=== PATIENT | male | born 1950 | race Caucasian/White ===

== ENCOUNTER 2017-12-21 11:53 | Observation (INO) | payer MEDICARE, SELFPAY ==
[2017-12-14 11:22] VITALS: BP 160/82; PULSE 86; RESP 16; TEMP 36.6; O2SAT 96; BMI 35.2
--- NOTE | 2017-12-14 11:30 | SDCEKG_ITS ---
Test Reason : Blood Pressure : / mmHG Vent. Rate : 074 BPM Atrial Rate : 074 BPM P-R Int : 164 ms QRS Dur : 066 ms QT Int : 372 ms P-R-T Axes : 038 021 016 degrees QTc Int : 412 ms Sinus rhythm with marked sinus arrhythmia Otherwise normal ECG Confirmed by TANIKA COTTON, LAKSHMI ([id number]), telegraph editor KIRSTEN MEJIA ([id number]) on 12/16/2017 11:31:23 AM Referred By: Saleem Mejia Confirmed By:LAKSHMI SAGASTUME MD
[2017-12-14 11:49] LABS: Hematocrit 42.6 % (40-54); Hemoglobin 14.2 g/dl (13.0-16.5); Mean Corp Hgb Conc 33.3 g/gl (32-36); Mean Corpuscular Hgb 30.7 pg (27.0-32.0); Mean Platelet Vol. 9.3 fl (6.2-12.0); Platelet Count 227 K/mm3 (150-450); RBC Distribution Width CV 13.6 % (11.6-14.6); RBC Distribution Width SD 45.2 fl (35.1-43.9); Red Blood Count 4.63 M/mm3 (4.6-6.2); Scan Indicated on CBC? Y/N NO; White Blood Count 4.7 K/mm3 (4.4-11.0)
[2017-12-14 12:17] LABS: Anion Gap 8 (5-15); BUN 14 mg/dL (7-18); BUN/Creat Ratio 14.9 RATIO (10-20); Calcium,Total 8.5 mg/dL (8.5-10.1); Chloride 103 mmol/L (98-107); Creatinine, Serum 0.94 mg/dL (0.70-1.30); EST Glomerular Filtration Rate 86 mL/min (>60); Est Glom Filt Rate - Afr Amer 104 mL/min (>60); Estimated Creatinine Clearance 78.35 ml/min; Glucose 91 mg/dL (70-110); Potassium 4.2 mmol/L (3.5-5.1); Sodium Level 137 mmol/L (136-145)
[2017-12-21] VITALS (8 sets, daily range): BP systolic 122–170; BP diastolic 70–105; PULSE 75–100; RESP 15–20; TEMP 36.3–37.2; O2SAT 95–98; BMI 35.2
[2017-12-21] MEDS: oxyCODONE HCl Cr 10 MG Tablet PO ×2 (09:50→21:13)
[2017-12-21] MEDS: Celecoxib 200 MG Capsule PO (09:50)
[2017-12-21] MEDS: Cefazolin 2 GM in 0.9% Normal Saline 100 ML IV (12:17)
--- NOTE | 2017-12-21 14:55 | RAD_ITS ---
STUDY: X-RAY - RIGHT KNEE REASON FOR EXAM: Male, 67 years old. Total knee replacement. TECHNIQUE: AP and lateral view(s) of the knee. COMPARISON: Comparison is made with prior examination dated March 29, 2017. FINDINGS: Normal visualized distal femur. Normal visualized proximal tibia and fibula. Normal proximal tibiofibular articulation. The patient is status post total knee replacement. There is good alignment. Postoperative soft tissue changes. RAD/Knee 1 or 2 Views IMPRESSION: The patient is status post total knee replacement. Good alignment. Postoperative soft tissue changes. Electronically Signed: Dhiraj Boudreaux MD at 15:27 EST Tel [phone], Service support ,
--- NOTE | 2017-12-21 15:57 | CPS ---
Pt not in room at this time. Incentive spirometer at bedside.
--- NOTE | 2017-12-21 16:26 | OP.PN_ITS ---
Immediate Post-Op Note Date of Procedure: 12/21/17 Primary Surgeon/Physician: Heber Singer DO frozen foods manager: Niya Jones Pre-Operative Diagnosis: Left knee osteoarthritis Post-Operative Diagnosis: As above Surgery/Procedure Performed:: Left total knee arthroplasty using the [employer] system press-fit Description of Surgical Findings:: See dictation Estimated Blood Loss: 50 Specimen's removed: Bone cuts Type of Anesthesia:: Spinal ASA Class: ASA1 Normal Healthy Patient - Admit VTE Documentation VTE Present on Admission: No VTE Mechan Device Prophylaxis: SCD's, Knee High JEFFERY Hose VTE Pharm Prophylaxis ordered?: Yes
--- NOTE | 2017-12-21 16:28 | PCM.OPRPT ---
Report of Operation Date of Procedure: 12/21/17 Pre-Operative Diagnosis: Left knee osteoarthritis Post-Operative Diagnosis: As above Surgery/Procedure Performed:: Left total knee arthroplasty using the [employer] system press-fit Description of Surgical Findings:: 67-year-old male with recalcitrant left knee pain that failed nonoperative management to include NSAIDs and modifications physical therapy and injections. Patient plain from radiographs that showed medial compartment arthrosis with changes across the patellofemoral joint. Patient discussed unicompartmental arthroplasty versus total knee. Due to patellofemoral pain with moving up and down stairs and degenerative changes noted patient requested total knee arthroplasty. Patient was met in the holding area where his left lower extremity was marked and identified by the with surgeon. Patient was taken the operating room in satisfactory condition with somewhat to place to identify patient up procedure limb. Patient received 2 g Ancef and 1 g of TXA. He had a well-placed tourniquet left proximal thigh. He was then prepped and draped in usual fashion after a successful spinal anesthesia. Left lower extremity was elevated Esmarch used for exsanguination tourniquet was increased to 250 mmHg for roughly 100 minutes. Standard midline incision was made from the tibial tubercle moving proximally 2 fingerbreadths above the patella. Patient then underwent a standard medial parapatellar approach. Patient had a large return of an effusion. Patient had a very hypertrophic synovial fat pad anteriorly and globally around the medial lateral gutters and superiorly in the suprapatellar pouch. He underwent a subtotal synovectomy. At that point time a standard medial release was undertaken secondary to the varus nature of his knee. This was done using standard technique. Due to the large nature of his patella which had a odd facet I elected to perform the initial patella resection. The overall patellar thickness was 28. We initially took off 10 again to 18 mm of thickness. The patient sized with 35 which would replace 10 mm of bone resection. The odd facet was then chamfered. We then turned our attention to entering the canal of the femur for our distal femoral cut. Intramedullary lock intramedullary laurent was placed. 6? valgus cut an 8 mm resection was performed. This was done using standard technique then turned our attention to sizing. Initially we thought the patient was a size 6's we performed an initial cut using 6 cutting jig. We reevaluated the soft tissues and felt that we could make an additional 2 mm cut anteriorly and avoid notching. We subsequently sized down to a size 5. Standard cuts were performed anticipation of a CR component. Then turned our attention to the tibia resection. Appropriate alignment guide placed extra medullary. We took 3 mm to 4 mm off the medial side. This was done using standard technique. The tibial component measured roughly to a 6. Again the PCL was protected. Medial lateral menisci resected in the posterior medial and posterior lateral corners were cauterized. At that point time the trial was placed using standard technique. We then placed a 6 tibial tray with an associated 9 mm Sagrario. We had excellent extension with no signs of extension or flexion gap evaluation at 0 30 and 90? of motion. Trial poly-removed and the tibia was then seated in place. Femoral component removed. Then placed our keel punch and placed secondary peg holes for the press-fit tibial tray. Please note this patient had excellent bone quality. At that point time the patella again was repaired using standard technique. The wound was copiously irrigated. Tibial tray was then seated using standard technique and impacted. Femoral component then seated as well without difficulty. 9 mm spacer reintroduced and again we had good mechanical alignment at 0 30 and 90? of motion. I elected used a 9 mm CS Sagrario. This was seated using standard technique. We then placed a 35 patella button press-fit technique. Patient's patella tracked very well. No lateral release was performed. Prior to closure patient was injected with 50 cc of Nayely cocktail. This was done around the soft tissues into the posterior capsule. We are cognizant of the neurovascular structures. The wound was then copiously irrigated multiple times prior to her closure. We then closed using standard technique with 0 Vicryl 2-0 Vicryl running subicular Monocryl and Dermabond. Patient was then dressed with Xeroform 4 x 4's ABDs and compressive wrap. Tourniquet was let down again after roughly 100 minutes. I was scrubbed and available time during our procedure. We had no drains or complications. Implants included the [employer] triathlon press-fit system 5 femur 6 tibia 9 mm CS Sagrario and a 35 patella button. Patient be admitted to floor for 24 hours of IV antibiotics appropriate IV and p.o. pain medication and DVT prophylaxis to include SCDs teds early aggressive range of motion in 325 p.o. twice daily of aspirin. Any issues please contact me. industrial health and safety professor: Niya Jones Type of Anesthesia:: Spinal Specimen's removed: Bone cuts Estimated Blood Loss (mL): 50 Fluids Replaced: 1000 Grafts/Implants Used: Striker triathlon press-fit, 5 femur 6 tibia 9 mm CS Sagrario 35 patella butto - Complications None - Admit VTE Documentation VTE Present on Admission: No VTE Mechan Device Prophylaxis: SCD's, Knee High JEFFERY Hose VTE Pharm Prophylaxis ordered?: Yes
[2017-12-21] MEDS: Aspirin 325 MG Tablet PO (17:06)
[2017-12-21] MEDS: Acetaminophen 500 MG Tablet 1000 MG PO ×2 (17:06→21:12)
[2017-12-21] MEDS: Cefazolin 1 GM/50 ML BAG IV (19:58)
[2017-12-21] MEDS: Losartan Potassium 100 MG Tablet PO (21:15)
[2017-12-21] MEDS: Senna/Docusate Sodium 1 Tablet 2 TABLET PO (21:15)
[2017-12-21] MEDS: Tamsulosin HCl 0.4 MG Capsule PO (21:15)
[2017-12-21] MEDS: Pravastatin 40 MG Tablet PO (21:16)
[2017-12-22 02:00] VITALS: BP 120/71; PULSE 74; RESP 18; TEMP 36.4; O2SAT 96
[2017-12-22] MEDS: Cefazolin 1 GM/50 ML BAG IV (03:12)
[2017-12-22] MEDS: oxyCODONE 5 MG Tablet PO ×4 (03:15→21:26)
[2017-12-22] MEDS: 0.9% NaCl Peripheral Flush Adult/Peds IV ×2 (06:16→23:42)
[2017-12-22] MEDS: Acetaminophen 500 MG Tablet 1000 MG PO ×3 (06:17→21:26)
[2017-12-22 07:04] LABS: Hematocrit 36.4 % (40-54); Hemoglobin 11.7 g/dl (13.0-16.5); Mean Corp Hgb Conc 32.1 g/gl (32-36); Mean Corpuscular Hgb 30.2 pg (27.0-32.0); Mean Corpuscular Volume 93.8 fL (80-94); Mean Platelet Vol. 9.3 fl (6.2-12.0); Platelet Count 204 K/mm3 (150-450); RBC Distribution Width CV 13.8 % (11.6-14.6); RBC Distribution Width SD 46.9 fl (35.1-43.9); Red Blood Count 3.88 M/mm3 (4.6-6.2); White Blood Count 7.1 K/mm3 (4.4-11.0)
[2017-12-22 07:06] LABS: Scan Indicated on CBC? Y/N NO
--- NOTE | 2017-12-22 07:25 | PCM.PN.ORT ---
Subjective: Postop day 1 status post left total knee arthroplasty. No issues overnight. Patient's state his pain is currently controlled p.o. pain medication although some IV usage is still needed. Otherwise tolerating a regular diet. Patient has been up and denies any issues. No fevers chills nausea vomiting chest pain or shortness of breath. No urinary retention. - Physical Exam General: Alert, Oriented x3, Cooperative, No apparent distress Musculoskeletal: - - Patient is otherwise distally neurovascular intact. No calf pain negative Homans. EHL anterior gastrocsoleus peroneals quads hamstring 5 out of 5. Range of motion 5? short of terminal extension to about 70? knee flexion. And were otherwise well seated well-placed. H&H reviewed. Vital Signs Temp Pulse Resp BP Pulse Ox 97.5 F L 74 18 120/71 96 12/22/17 02:00 12/22/17 02:00 12/22/17 02:00 12/22/17 02:00 12/22/17 02:00 Oxygen Delivery Method Room Air Weight: 238 lb 5.115 oz Body Mass Index (BMI) 35.2 Intake and Output for Last 24 Hours 12/20/17 12/21/17 12/22/17 23:59 23:59 23:59 Intake Total 1500 / 1500 1545 / 1545 Output Total 700 / 700 Balance 1500 / 1500 845 / 845 Laboratory Tests Past 24 Hrs 12/22/17 12/22/17 06:36 06:36 WBC 7.1 RBC 3.88 L Hgb 11.7 L Hct 36.4 L MCV 93.8 MCH 30.2 MCHC 32.1 RDW 13.8 RDW Differential 46.9 H Plt Count 204 MPV 9.3 Sodium Pending Potassium Pending Chloride Pending Carbon Dioxide Pending Anion Gap Pending BUN Pending Creatinine Pending Est GFR (MDRD) Af Amer Pending Est GFR (MDRD) Non-Af Pending BUN/Creatinine Ratio Pending Glucose Pending Calcium Pending Assessment/Plan Assessment: Postop day 1 status post left total knee arthroplasty doing well. Plan: At this point time the patient is making progress. We will see how he does once the pain blocks and spinal wore off. This usually occurs around sometime around lunchtime. If his pain is well controlled later in the day and he feels like he is able to go and has family assistance and I will discharge. Otherwise anticipate discharge home to outpatient physical therapy tomorrow. We will continue with aspirin 325 p.o. twice daily with appropriate GI prophylaxis for DVT prevention. Any issues please contact me.
[2017-12-22 07:27] LABS: Anion Gap 8 (5-15); BUN 21 mg/dL (7-18); BUN/Creat Ratio 20.2 RATIO (10-20); Calcium,Total 8.1 mg/dL (8.5-10.1); Chloride 101 mmol/L (98-107); Creatinine, Serum 1.04 mg/dL (0.70-1.30); EST Glomerular Filtration Rate 76 mL/min (>60); Est Glom Filt Rate - Afr Amer 92 mL/min (>60); Estimated Creatinine Clearance 70.81 ml/min; Glucose 103 mg/dL (74-106); Potassium 4.2 mmol/L (3.5-5.1); Sodium Level 135 mmol/L (136-145)
[2017-12-22 08:00] VITALS: BP 120/75; PULSE 88; RESP 16; TEMP 36.7; O2SAT 94
[2017-12-22] MEDS: Senna/Docusate Sodium 1 Tablet 2 TABLET PO ×2 (08:15→21:25)
[2017-12-22] MEDS: Famotidine 20 MG Tablet PO (08:16)
[2017-12-22] MEDS: Aspirin 325 MG Tablet PO ×2 (08:16→17:48)
[2017-12-22] MEDS: oxyCODONE HCl Cr 10 MG Tablet PO ×2 (09:54→21:26)
--- NOTE | 2017-12-22 11:10 | CASEMGMT ---
HUMBLE OLMOS Face to Face with patient for initial transition planning/care coordination assessment. HUMBLE OLMOS introduced self and role at [facility]. Patient sitting in chair, alert and oriented. Patient willing to participate in assessment and is able to answer all questions appropriately. Care providers, pharmacy, and demographics verified. See link attached. Patient wishes to discharge home and would like outpatient therapy at [facility]. Patient states that his or uncle can provide transportation but patient is inquiring when he can drive. HUMBLE OLMOS advised patient to discuss driving privileges with Dr. Singer. Patient states he has no further needs or concerns at this time. HUMBLE OLMOS called Dr. Banks office and requested outpatient therapy order be sent to [facility]. CM to follow for discharge planning needs that may arise. Disposition Plan: Patient to discharge home with outpatient therapy, family support, and follow-up plans in place.
--- NOTE | 2017-12-22 13:46 | CASEMGMT ---
Medicare Outpatient Observation Notice review with patient. Patient voiced understanding at this time. Patient provided with signed copy and original filed on chart. Patient voiced no concerns or questions at this time.
[2017-12-22 14:00] VITALS: BP 134/83; PULSE 86; RESP 16; TEMP 36.7; O2SAT 97
--- NOTE | 2017-12-22 16:16 | PCM.DC.TKR ---
Discharge Activity: Return to Normal Activity, May not drive while taking narcotic pain medications., May Shower, Use Walker May shower in (days): 1 May resume sexual activity in: No Restrictions Ice area for (Minutes): 20 - Use Polar Care as needed Weight Bearing Status: Weight bearing as tolerated Elevate: Left Leg Additional Activity Instructions:: Work on gaining full flexion and extension. Rest with something underneath the heel not underneath the calf or the need to gain better extension. Call your doctor if your incision/area has: Continuous Slow Oozing, Sudden Increased Bleeding, Increased Pain/ Swelling, Increased Redness, Foul Smelling Discharge, Swelling at the incision site Call your doctor if you observe: Fever of 101 or Higher, Coldness, Increased Pain, Numbness or Tingling, Change in Color, Inability to urinate, Inability to have a bowel movement, Using more than one pad per hour, Shortness of breath, Dizziness, Fainting spells, Swelling in the ankles, Chest pain, Prolonged hiccoughing, Increased palpitations (irregular heartbeat), Calf discomfort, Uncontrolled pain Suture Line Care: Avoid Pulling/Pushing, Avoid Pinching/Bending Change Dressing in (Days):: 5 - and daily as needed. Remove Dressing in (days):: 5 Cleanse incision/area with: Soap & Water Additional Dressing/Incision Instructions:: Remove dressing in 5 days. Wash hands prior to touching wound. Allergies/Adverse Reactions: Allergies No Known Allergies Allergy (Verified 12/14/17 11:05) Medications to take at Discharge losartan 100 mg tablet 100 mg PO QHS 11/22/17 pravastatin 40 mg tablet 40 mg PO QHS 11/22/17 tamsulosin 0.4 mg capsule 0.4 mg PO QHS 11/22/17 Naproxen Sodium [Aleve] 220 mg PO PRN PRN 12/14/17 Aspirin E.C. [Ecotrin] 325 mg PO BID #30 tab 12/22/17 Docusate Sodium [Colace] 100 mg PO BID PRN PRN #10 cap 12/22/17 Oxycodone HCl/Acetaminophen [Percocet 5/325] 1 - 2 tab PO Q4H PRN PRN #60 tab 12/22/17 ProMETHAzine [Phenergan] 25 mg PO Q4H PRN PRN #10 tab 12/22/17 The following prescriptions were given: Oxycodone HCl/Acetaminophen [Percocet 5/325] 1 - 2 tab PO Q4H PRN PRN #60 tab PRN Reason: Pain ProMETHAzine [Phenergan] 25 mg PO Q4H PRN PRN #10 tab PRN Reason: Nausea Docusate Sodium [Colace] 100 mg PO BID PRN PRN #10 cap PRN Reason: Constipation Aspirin E.C. [Ecotrin] 325 mg PO BID #30 tab Primary Care Physician: Saleem Mejia MD [Primary Care Provider] - Please Follow Up With: Heber Singer DO When: call [facility] for appt for 2 weeks Proposed Discharge Date: 12/23/17
[2017-12-22 20:16] VITALS: BP 134/67; PULSE 86; RESP 16; RESP 18; TEMP 36.7; O2SAT 94
[2017-12-22] MEDS: Pravastatin 40 MG Tablet PO (21:26)
[2017-12-22] MEDS: Losartan Potassium 100 MG Tablet PO (21:26)
[2017-12-22] MEDS: Tamsulosin HCl 0.4 MG Capsule PO (21:26)
[2017-12-23 02:30] VITALS: BP 132/79; PULSE 83; RESP 16; TEMP 36.8; O2SAT 96
[2017-12-23] MEDS: oxyCODONE 5 MG Tablet PO ×2 (04:36→17:11)
[2017-12-23] MEDS: Acetaminophen 500 MG Tablet 1000 MG PO ×2 (05:04→14:47)
[2017-12-23 06:20] LABS: Hematocrit 32.5 % (40-54); Hemoglobin 10.7 g/dl (13.0-16.5); Mean Corp Hgb Conc 32.9 g/gl (32-36); Mean Corpuscular Hgb 30.8 pg (27.0-32.0); Mean Corpuscular Volume 93.7 fL (80-94); Mean Platelet Vol. 9.4 fl (6.2-12.0); Platelet Count 201 K/mm3 (150-450); RBC Distribution Width CV 13.4 % (11.6-14.6); Red Blood Count 3.47 M/mm3 (4.6-6.2); Scan Indicated on CBC? Y/N NO
[2017-12-23 06:52] LABS: Anion Gap 8 (5-15); BUN 14 mg/dL (7-18); BUN/Creat Ratio 14.7 RATIO (10-20); Calcium,Total 8.2 mg/dL (8.5-10.1); Chloride 101 mmol/L (98-107); Creatinine, Serum 0.95 mg/dL (0.70-1.30); EST Glomerular Filtration Rate 85 mL/min (>60); Est Glom Filt Rate - Afr Amer 102 mL/min (>60); Estimated Creatinine Clearance 77.52 ml/min; Glucose 108 mg/dL (74-106); Potassium 3.9 mmol/L (3.5-5.1); Sodium Level 136 mmol/L (136-145)
--- NOTE | 2017-12-23 07:42 | PCM.DC.BLA ---
Discharge Summary Date of Admission: 12/21/17 Date of Discharge: 12/23/17 Summary: 67-year-old male status post left total knee arthroplasty. No issues. Patient was admitted to the floor for 24 hours of IV antibiotics provided IV and p.o. pain medication. DVT prophylaxis included aggressive range of motion early weightbearing SCDs teds in 325 p.o. twice daily of aspirin with appropriate GI prophylaxis. Patient tolerated regular diet ambulator related well around the floor without any major issues. Her to be appropriate for discharge home today. [facility] No other fevers chills nausea vomiting chest pain or shortness of breath. Assessment: Status post left total knee arthroplasty for osteoarthritis doing well. Plan: Discharge home start outpatient physical [facility]. Continue with aspirin 325 p.o. twice daily with GI prophylaxis for the next 14 days. Dressing stays in place for 5-7 days. Patient may shower at this time. Patient will all up in 2 weeks for a wound check. Any issues please contact me.
[2017-12-23 07:52] VITALS: BP 140/75; PULSE 88; RESP 18; TEMP 36.8; O2SAT 95
[2017-12-23] MEDS: Senna/Docusate Sodium 1 Tablet 2 TABLET PO (07:57)
[2017-12-23] MEDS: Aspirin 325 MG Tablet PO ×2 (07:57→17:11)
[2017-12-23] MEDS: Famotidine 20 MG Tablet PO (07:57)
[2017-12-23] MEDS: oxyCODONE HCl Cr 10 MG Tablet PO (10:33)
--- NOTE | 2017-12-23 11:30 | CASEMGMT ---
HUMBLE OLMOS called [facility] to confirm that they had received order for outpatient therapy for patient from Dr. Singer's office. Tammy at [facility] confirmed that they received order and will be calling patient today to setup outpatient therapy appointment. HUMBLE OLMOS updated that the patient and also provided patient information of [facility] if patient would like to utilized after he has an established schedule with [facility] for outpatient therapy. Patient voiced understanding and had no questions or concerns at this time. HUMBLE OLMOS will continue to follow this patient and plan for a safe discharge.
[2017-12-23 14:44] VITALS: BP 143/77; PULSE 90; RESP 18; TEMP 37.9; O2SAT 96
[2017-12-23 17:30] VITALS: BP 140/75; PULSE 85; RESP 18; TEMP 37.7; O2SAT 96
[2017-12-23 18:15] VITALS: BP 140/75; PULSE 85; RESP 18; TEMP 37.7; O2SAT 96
== END 2017-12-23 18:17 | disposition home or self-care (01) ==
PROVIDERS: Anesthesiology; Admitting Provider Orthopaedic Surgery; Family Provider Family Medicine; PCP Family Medicine; Visit Provider Orthopaedic Surgery
PROC: (CPT 27447; principal; 2017-12-21 10:15)
DX: M17.0 Bilateral primary osteoarthritis of knee (principal); E78.00 Pure hypercholesterolemia, unspecified; Z79.899 Other long term (current) drug therapy; I10 Essential (primary) hypertension; Z87.891 Personal history of nicotine dependence; G89.29 Other chronic pain
CPT/HCPCS: 27447; 64447; 36415; 73560; 80048; 85027; 87081; 93005; 96365; 96366; 96375; 96376; 97110; 97116; 97162; 97166; 97530; 97535; 99218; J7120; A4216; G0378; G0379

== ENCOUNTER 2018-01-27 09:00 | Outpatient (RCR) | payer MEDICARE, SELFPAY ==
--- NOTE | 2017-12-30 11:16 | HP.PTEVAL_ITS ---
Patient's Visit Information ERICA HORTON is a 67 year old M referred to Physical Therapy by Heber Singer DO DR.[email or web address] with a diagnosis of Left TKR 12/21/17. Date of Evaluation: 12/30/17 Physical Therapist: Lauren Alves - Visit Plan Frequency: 2-3x /Week Duration: 4 Weeks Plan: Left TKR 12/21/17- focus on ROM, strength and functional mobility - Subjective Subjective: Total Knee Replacement 12/21/[address] Singer. Stayed at the hospital for 2 days then went home. Lives in a split level house- has help at home as needed. No problems getting around. Fully i before surgery. Retired but likes to [place] [employer]. The knee is not to bad- he is doing the exercises pretty well except for the bend ones. Worst: 12/25 Agg: bending the knee. Eases: ice Best: 11/24. Pain is located in the knee- radiates to the mid newsome. Reports pain is dull and achy but does have sharp pain with bends. Goes back to [facility] on Wednesday. Sleep: disturbed- sleeping in reclyner so far but wants to get back to bed. No N/T in the toes. PMHx/Meds: no changes since surgery. - Objective Posture: FH, RS. Gait: slightly antalgic- decreased stance on the left LE with poor heel/toe pattern secondary to ROM- ambulates into clinic with FWW but was able to ambulate out of the clinic on straight cane. Stairs: asc/desc 8 non recip with 2 HR- able to asc.desc 8 recip but requires significant UE A with increased pain. HR/TR: able. Balance: WS but unable to SLS without UE A. Observation: pt wearing hose and no s/s of infection- bandage attatched. Palpation: tender along medial and lateral joint line- no tenderness in calf. ROM: Ankle: WNL, Hip: WNL Knee: 20-95 degrees with pain at end range. Strength : Ankle: 5/5, Knee: hamstrin+/5, quad set is visible. Hip: 4/5 SLR: mild lag. Edema: moderate around the knee - Goals Goal 1:: Patient will be I with HEP and progression Goal Time Frame: 4-6 Weeks Goal 2:: Patient will ambulate >300 feet with a normalized gait pattern and LRD Goal Time Frame: 4-6 Weeks Goal 3:: Patient will asc/desc 8 stairs recip with 1 HR Goal Time Frame: 4-6 Weeks Goal 4:: Patient will demo 0-115 degrees of ROM in the left knee Goal Time Frame: 4-6 Weeks - Rehabilitation Potential Physical Therapy Diagnosis: Patient presents with hypomobility - he has decreased ROM, strength and muscular endurance s/p left TKR leading to abnormal gait and decreased ability to perform ADL's. Rehabilitation Potential: Good - Anticipated Interventions Patient/Client Instruction: Educate patient on: Benefits of Fitness Program For the Purpose of:: To improve ability to perform ADL's Therapeutic Exercise to Include: Strength training, Endurance training, Balance training, Agility training, Body mechanics, Postural training, Flexibilty training, Gait and locomotor training, Passive ROM, Active ROM, Dynamic Lumbar Stabilization For the Purpose of:: To improve muscle performance and motor function TENS: Yes Cryotherapy (ice pack, ice massage): Yes Thermo therapy (hot pack): Yes Ultrasound (thermal/non thermal): No For the Purpose of:: To decrease pain Thank you for the opportunity to evaluate your patient. For Medicare and Medicare HMO plans, please review the plan of care and approve it. It will need to be FAXED BACK to us at [phone] for Medicare purposes. Please let me know if there are questions or concerns regarding this plan of care. Physician Signature: Date:
--- NOTE | 2018-01-27 09:22 | HP.PTDCSUM_ITS ---
HP - PT D/C Summary It has been my pleasure to treat ERICA HORTON under orders from Heber Singer DO , for the diagnosis of Left TKR 12/21/17 for a total of 9 visit(s). Discharge Date: Please see the following information for a summary of their discharge status. - Subjective Subjective: Patient reports that the knee is pretty good- Rode in the car for 7 hours and it was stiff. is doing the stretching at home. no pain in the knee. - Pain L knee Pain Intensity (Out of 10): 0 - Overall Improvement % Improvement: 80 - Objective Objective/Function: Posture: good throughout. Gait: slightly antalgic. Stairs : asc/desc 8 recip with 1 HR. HR/TR: able. Balance: 15 sec SLS. Palpation: not tender. ROM: 0-120 degrees. Strength: 5/5 throughout - Goals Goal 1:: Patient will be I with HEP and progression Goal Progress: Goal Met Goal 2:: Patient will ambulate >300 feet with a normalized gait pattern and LRD Goal Progress: Progressing Goal 3:: Patient will asc/desc 8 stairs recip with 1 HR Goal Progress: Goal Met Goal 4:: Patient will demo 0-115 degrees of ROM in the left knee Goal Progress: Goal Met - Plan Plan: Discharge to I HEP - D/C Information If there are questions or concerns regarding this patient's physical therapy, please feel free to call me at [phone]. Thank you for the referral of this patient. Sincerely, Lauren Alves
== END 2018-01-27 10:39 | disposition home or self-care (01) ==
LOC: PT 09:00
PROVIDERS: Family Provider Family Medicine; PCP Family Medicine; Visit Provider Orthopaedic Surgery
DX: Z98.890 Other specified postprocedural states (principal)
CPT/HCPCS: 97110; 97161; 97164

== ENCOUNTER → 2018-01-31 09:21 | Outpatient (CLI) | payer MEDICARE, SELFPAY ==
--- NOTE | 2018-01-31 09:24 | RAD_ITS ---
XR Knee Complete 4 Views or More INDICATION: 6 week post op COMPARISON: None TECHNIQUE: 4 views of the left knee FINDINGS: There is evidence of a left total knee arthroplasty with components in expected position. Soft tissue swelling is noted. RAD/Knee 4 or More Views IMPRESSION: Left total knee arthroplasty with components in expected position. Anterior soft tissue swelling. at 0110 Reported and signed by: Ira Chan MD Electronically Signed: Ira Chan MD at 0:09 EDT Tel , Service support ,
== END ==
PROVIDERS: Family Provider Family Medicine; PCP Family Medicine; Visit Provider Orthopaedic Surgery
DX: M25.562 Pain in left knee (principal); Z96.652 Presence of left artificial knee joint
CPT/HCPCS: 73564

== ENCOUNTER → 2018-02-08 08:11 | Outpatient (CLI) | payer MEDICARE, SELFPAY ==
[2018-02-08 10:48] LABS: PSA,Total- Diagnostic 9.48 ng/mL (0.0-4.0)
== END ==
PROVIDERS: Family Provider Family Medicine; PCP Family Medicine; Visit Provider Family Medicine
DX: R97.20 Elevated prostate specific antigen [PSA] (principal)
CPT/HCPCS: 36415; 84153

== ENCOUNTER → 2018-04-14 18:17 | Outpatient (CLI) | payer MEDICARE, SELFPAY ==
--- NOTE | 2018-04-14 | IMM_PTH ---
PATIENT: ERICA HORTON Jr. LOC: [facility] U#:[id number] AGE/SX: 75/M ROOM: RE04/14/[address]: Dr. Domenico Brewer MD : 1950 BED: DIS: SPEC #: [id number] RECD: 04/18/18 16:47 STATUS: DALE ALAINA #: [id number] KD: 04/14/18 00:[address]: Domenico Brewer DEPT: IMMUNOHISTOCHEMISTRY RECD BY: Nicolle [place] Tissues: E - PROSTATE LEFT Procedures: P40 (add) 34BE12 (initial) PHYSICIAN & INSTITUTION [place] [id number] SPECIMEN INFORMATION: Tissue Source: E - Left prostate, mid, core biopsy Clinical Info: Elevated PSA Specimen Number: [id number] CPT code: 36639, 10529 METHODOLOGY: Deparaffinized sections of prefer/formalin-fixed tissue or PAP/DQ stained slides are incubated with monoclonal/polyclonal antibodies/oligonucleotide probes. Localization is made via biotin free immunoperoxidase method. Appropriate controls are performed and reacted as expected. Results on target cell population are indicated in the following table: RESULTS: ANTIBODY / CLONE RESULT Block E P40 (BC28) positive 34BE12 (34BE12) positive These tests were developed and their performance characteristics determined by [facility]. They may not have been cleared or approved by the U.S. Food and Drug Administration. The FDA has determined that such clearance or approval is not necessary. INTERPRETATION: E. Left prostate, mid, core biopsy: Consistent with focal high-grade prostatic intraepithelial neoplasia (HGPIN). AM:krystina 04/23/18
--- NOTE | 2018-04-14 11:15 | PROSBIL_PTH ---
PATIENT: ERICA HORTON Jr. LOC: [place] U#:[id number] AGE/SX: 75/M ROOM: RE04/14/[address]: Dr. Domenico Brewer MD : 1950 BED: DIS: SPEC #: [id number] RECD: 04/14/18 16:39 STATUS: DALE ALAINA #: [id number] KD: 04/14/18 11:[address]: Domenico Brewer DEPT: SURGICAL PATHOLOGY RECD BY: Que Bowman Tissues: A - PROSTATE RIGHT B - PROSTATE RIGHT C - PROSTATE RIGHT D - PROSTATE LEFT E - PROSTATE LEFT F - PROSTATE LEFT Procedures: PROSTATE BX HEADER OPERATION: Prostate biopsy PRE-OP DIAGNOSIS: Elevated PSA TISSUE SUBMITTED: A - Right apex, B - Right mid, C - Right base, D - Left apex, E - Left mid, F - Left base MICROSCOPIC DIAGNOSIS A. Right prostate, apex, core biopsy: Benign prostatic tissue. B. Right prostate, mid, core biopsy: Focal glandular atrophy. C. Right prostate, base, core biopsy: Focal glandular atrophy. D. Left prostate, apex, core biopsy: Focal acute and chronic inflammation. E. Left prostate, mid, core biopsy: Focal high-grade prostatic intraepithelial neoplasia (HGPIN). F. Left prostate, base, core biopsy: Benign prostatic tissue. AM:krystina 04/23/18 MICROSCOPIC DESCRIPTION Slides are reviewed. GROSS DESCRIPTION A - Received is one container designated prostate, right apex. The specimen consists of two elongated fragments of light sr-white soft tissue each measuring 1.5 cm in length and 0.1 cm in diameter. The specimen is totally submitted in one cassette. B - Received is one container designated prostate, right mid. The specimen consists of two elongated fragments of light sr-white soft tissue each measuring 1.5 cm in length and 0.1 cm in diameter. The specimen is totally submitted in one cassette. C - Received is one container designated prostate, right base. The specimen consists of two elongated fragments of light sr-white soft tissue each measuring 1 cm in length and 0.1 cm in diameter. The specimen is totally submitted in one cassette. D - Received is one container designated prostate, left apex. The specimen consists of two elongated fragments of light sr-white soft tissue each measuring 1 cm in length and 0.1 cm in diameter. The specimen is totally submitted in one cassette. E - Received is one container designated prostate, left mid. The specimen consists of two elongated fragments of light sr-white soft tissue each measuring 1.5 cm in length and 0.1 cm in diameter. The specimen is totally submitted in one cassette. F - Received is one container designated prostate, left base. The specimen consists of two elongated fragments of light sr-white soft tissue each measuring 1 cm in length and 0.1 cm in diameter. The specimen is totally submitted in one cassette. / AM:krystina 04/15/18 TC:2 CPT: G0146
== END ==
PROVIDERS: Visit Provider Urology
DX: N42.31 Prostatic intraepithelial neoplasia (principal); N42.89 Other specified disorders of prostate
CPT/HCPCS: 88305; 88341; 88342; G0416

== ENCOUNTER → 2018-10-19 06:08 | Outpatient (CLI) | payer MEDICARE, SELFPAY ==
[2018-10-19 08:01] LABS: PSA,Total- Diagnostic 7.76 ng/mL (0.0-4.0)
== END ==
PROVIDERS: Family Provider Family Medicine; PCP Family Medicine; Referring Provider Urology; Visit Provider Urology
DX: R97.20 Elevated prostate specific antigen [PSA] (principal)
CPT/HCPCS: 36415; 84153

== ENCOUNTER → 2019-02-06 07:06 | Outpatient (CLI) | payer MEDICARE, SELFPAY ==
[2019-02-06 10:54] LABS: Anion Gap 4 (5-15); BUN 19 mg/dL (7-18); BUN/Creat Ratio 18.3 RATIO (10-20); Calcium,Total 8.8 mg/dL (8.5-10.1); Chloride 106 mmol/L (98-107); Cholesterol 185 mg/dL (200); Creatinine, Serum 1.04 mg/dL (0.70-1.30); EST Glomerular Filtration Rate 76 mL/min (>60); Est Glom Filt Rate - Afr Amer 92 mL/min (>60); Glucose 92 mg/dL (74-106); High Density Lipoprotein 39 mg/dL; PSA,Total- Diagnostic 8.33 ng/mL (0.0-4.0); Sodium Level 138 mmol/L (136-145); Triglycerides 138 mg/dL; Very Low Density Lipoprotein 28 mg/dL (5-40)
== END ==
PROVIDERS: Family Provider Family Medicine; PCP Family Medicine; Referring Provider Family Medicine; Visit Provider Family Medicine
DX: E78.00 Pure hypercholesterolemia, unspecified (principal); I10 Essential (primary) hypertension; R97.20 Elevated prostate specific antigen [PSA]
CPT/HCPCS: 36415; 80048; 80061; 84153

== ENCOUNTER → 2019-09-14 08:04 | Outpatient (CLI) | payer MEDICARE, SELFPAY ==
[2019-09-14 10:11] LABS: ALB/GLOB Ratio 0.9 RATIO (0.9-2.4); AST(SGOT) 33 U/L (15-37); Alanine Aminotransfer ALT/SGPT 43 U/L (16-61); Albumin, Serum 3.6 g/dL (3.2-5.0); Alkaline Phosphatase 76 U/L (45-117); Anion Gap 9 (5-15); BUN 20 mg/dL (7-18); BUN/Creat Ratio 18.7 RATIO (10-20); Calcium,Total 8.7 mg/dL (8.5-10.1); Chloride 104 mmol/L (98-107); Cholesterol 191 mg/dL (200); Creatinine, Serum 1.07 mg/dL (0.70-1.30); EST Glomerular Filtration Rate 73 mL/min (>60); Est Glom Filt Rate - Afr Amer 89 mL/min (>60); Globulin 3.8 g/dL (2.2-4.2); Glucose 103 mg/dL (74-106); High Density Lipoprotein 40 mg/dL; Protein, Total 7.4 g/dL (6.4-8.2); Sodium Level 139 mmol/L (136-145); Triglycerides 114 mg/dL; Very Low Density Lipoprotein 23 mg/dL (5-40)
== END ==
PROVIDERS: Family Provider Family Medicine; PCP Family Medicine; Referring Provider Family Medicine; Visit Provider Family Medicine
DX: I10 Essential (primary) hypertension (principal)
CPT/HCPCS: 36415; 80053; 80061

== ENCOUNTER → 2019-09-21 09:07 | Outpatient (CLI) | payer MEDICARE, SELFPAY ==
--- NOTE | 2019-09-21 09:10 | RAD_ITS ---
STUDY: X-RAY - RIGHT KNEE REASON FOR EXAM: Male, 69 years old. Osteoarthritis. TECHNIQUE: 4 view(s) of the knee. COMPARISON: None. FINDINGS: Osteophytosis along the distal femur and proximal tibia along with subchondral sclerosis. There is a focal bony fragment along the superior edge of the lateral tibial plateau which could represent sequela of old avulsion injury. Otherwise normal visualized distal femur. Normal visualized proximal tibia and fibula. There is arthrosis of the proximal tibiofibular articulation. There is no demonstrated fracture. There is mild to moderate degenerative arthrosis of the medial femorotibial compartment. There is mild degenerative arthrosis of the lateral femorotibial compartment. There is minimal degenerative arthrosis of the patellofemoral articulation. There is mild joint effusion. The soft tissue structures are unremarkable. RAD/Knee 4 or More Views IMPRESSION: Degenerative disease as described above along with mild joint effusion. Electronically Signed: Magaly Barrios MD at 1:32 EST , Service support ,
== END ==
PROVIDERS: Family Provider Family Medicine; PCP Family Medicine; Referring Provider Family Medicine; Visit Provider Family Medicine
DX: M17.11 Unilateral primary osteoarthritis, right knee (principal)
CPT/HCPCS: 73564

== ENCOUNTER → 2019-10-24 06:33 | Outpatient (CLI) | payer MEDICARE, SELFPAY ==
[2019-10-06 08:22] VITALS: BMI 35.2
[2019-10-24 08:13] LABS: Anion Gap 5 (5-15); BUN 22 mg/dL (7-18); BUN/Creat Ratio 20.2 RATIO (10-20); Calcium,Total 9.2 mg/dL (8.5-10.1); Chloride 108 mmol/L (98-107); Creatinine, Serum 1.09 mg/dL (0.70-1.30); EST Glomerular Filtration Rate 72 mL/min (>60); Est Glom Filt Rate - Afr Amer 87 mL/min (>60); Glucose 98 mg/dL (74-106); PSA,Total- Diagnostic 7.49 ng/mL (0.0-4.0); Sodium Level 140 mmol/L (136-145)
== END ==
PROVIDERS: Family Provider Family Medicine; PCP Family Medicine; Referring Provider Urology; Visit Provider Urology
DX: I10 Essential (primary) hypertension (principal); R97.20 Elevated prostate specific antigen [PSA]
CPT/HCPCS: 36415; 80048; 84153

== ENCOUNTER 2019-11-28 14:05 | Observation (INO) | payer MEDICARE, SELFPAY ==
[2019-10-06 08:22] VITALS: BMI 35.2
[2019-11-13 08:04] VITALS: BMI 35.2
[2019-11-14 09:11] VITALS: BP 151/87; PULSE 91; RESP 16; TEMP 36.8; O2SAT 96; BMI 36.8
--- NOTE | 2019-11-14 09:34 | SDCEKG_ITS ---
Test Reason : Blood Pressure : / mmHG Vent. Rate : 081 BPM Atrial Rate : 081 BPM P-R Int : 162 ms QRS Dur : 066 ms QT Int : 350 ms P-R-T Axes : 060 004 038 degrees QTc Int : 406 ms Normal sinus rhythm Inferior infarct , age undetermined , cannot be excluded Abnormal ECG Confirmed by TANIKA COTTON, LAKSHMI ([id number]), video effects editor CHEMA PENNY ([id number]) on 11/16/2019 11:21:41 AM Referred By: Timoteo Hawkins Confirmed By:LAKSHMI SAGASTUME MD
[2019-11-14 10:13] LABS: Hematocrit 41.9 % (40-54); Hemoglobin 13.9 g/dL (13.0-16.5); Mean Corp Hgb Conc 33.2 g/dL (32-36); Mean Corpuscular Hgb 30.5 pg (27.0-32.0); Mean Corpuscular Volume 92.1 fL (80-94); Mean Platelet Vol. 9.3 fl (6.2-12.0); Platelet Count 219 K/mm3 (150-450); RBC Distribution Width CV 13.1 % (11.6-14.6); Red Blood Count 4.55 M/mm3 (4.6-6.2); White Blood Count 3.7 K/mm3 (4.4-11.0)
--- NOTE | 2019-11-27 14:31 | HP.PCM_ITS ---
History and Physical Date of Admission: 11/28/19 Intake Vital Signs 11/13/19 BMI 35.2 Intake Visit Reasons: right knee Is patient in pain?: Yes Allergies No Known Allergies Allergy (Verified 01/03/18 09:54) Medications losartan 100 mg tablet 100 mg PO QHS 11/22/17 [History Confirmed 11/13/19] pravastatin 40 mg tablet 40 mg PO QHS 11/22/17 [History Confirmed 11/13/19] tamsulosin 0.4 mg capsule 0.4 mg PO QHS 11/22/17 [History Confirmed 11/13/19] Aspirin E.C. [Ecotrin] 325 mg PO BID #30 tab 12/22/17 [Rx Confirmed 11/13/19] Docusate Sodium [Colace] 100 mg PO BID PRN PRN #10 cap 12/22/17 [Rx Confirmed 11/13/19] Famotidine [Pepcid] 20 mg PO BID #30 tab 12/22/17 [Rx Confirmed 11/13/19] hydrochlorothiazide 25 mg tablet PO #90 tab 10/06/19 [History Confirmed 11/13/19] PFSH Social History (Updated 11/13/19 @ 16:34 by Timoteo Hawkins DO) Smoking Status: Former smoker how long ago did patient quit smokin HPI right knee: Details: Parts of this documentation were recorded by a scribe, this documentation accurately reflects the service provided and the decisions made by me, Timoteo Hwakins DO 11/13/19 [id number]. ERICA HORTON is a 69 year old M here today for right knee pain, he is ambulating with an antalgic gait but does not need an assistive device. He has no additional complaints other than nearly constant knee pain. Denies numbness, tingling or other associated symptoms. ROS Musc Reports as per HPI, Reports joint pain, Reports limited joint movement, Reports stiffness Skin/Breast Reports system reviewed and no additional complaints, except as docu Neuro Yes system reviewed and no additional complaints, except as docu Ortho Exam Right Knee Skin/Wound: No erythema, No ecchymosis, No swelling Homans Sign: No Knee ROM: Yes ROM-Extension -20 to 0, No ROM-Flexion 0-140 (110) Examination: Yes Med jt line tenderness, No Lat jt line tenderness, Yes Crepitus, No Pain with flexion, No Pain with extention, No TTP Patellar tendon Stability: NML: Anterior Drawer, NML: Posterior Drawer, NML: Valgus 30, NML: Varus 30 Patella Translation: 1 Apprehension with Lateral Translation: No Patella Grind: No KNEE: no joint effusion has decreased hair growth to his distal 1/3 of the leg mild BL pitting edema +2 pedal pulse General: alert and oriented x 3 NAD Psych: cooperative and nonconfrontational neuro: intact sensation to light touch no gross motor or sensory deficits Left Knee Patella Translation: 1 Office Procedures Iovera Details:: Preoperative diagnosis : right knee pain Postoperative diagnosis: Same Procedure: Cryotherapy with Iovera device to anterior femoral cutaneous nerve and 2 branches of the infrapatellar saphenous nerve III nerves in total Description of procedure: Patient was brought back to the procedure room the operative extremity was identified by both patient and physician. The PIP flexion crease was measured to the midpoint of the patella and this distance was divided in 3 resulting in 10 cm location proximal to the midpoint of the patella. This line was extended medial and lateral to the extent of the edges of the patella. This was our treatment line for the anterior femoral cutaneous nerve. A second treatment line was made 5 cm medial to the inferior pole of the patella and 5 cm distally. The leg was prepped with alcohol and Betadine. Lidocaine with epi was used along the treatment lines. Using the Iovera device treatment lines were treated with 1 minute cycles. Reproduction of paresthesias was monitored in the area of nerve distribution. Once all 3 nerves were treated across the 2 treatment lines patient was cleaned and a light dressing with 4 x 4 and Gera wrap was applied. Patient tolerated the procedure without complication. Assessment & Plan Problems 1. Chronic pain of right knee M25.561; G89.29 Plan Risks, benefits and alternatives of surgery reviewed including but not limited to bleeding, infection, nerve, artery and/or tissue damage, fracture, VTE, mechanical feel of the knee, continued pain, stiffness and expected post- operative course. Reviewed the risks and benefits of iovera and patient elects to proceed. Follow up post op or sooner if pain, swelling, numbness or associated symptoms, or concerns develop. All questions answered. Patient in agreement of plan. I have re-examined the patient. There are no clinical changes since date of exam
[2019-11-28] VITALS (9 sets, daily range): BP systolic 119–150; BP diastolic 55–87; PULSE 84–100; RESP 16–18; TEMP 36.3–36.8; O2SAT 92–98; BMI 36.8; BMI 37.7
[2019-11-28 10:21] LABS: Bedside Glucose 88 mg/dL (70-110)
[2019-11-28] MEDS: Lactated Ringers 1,000 ML 100 ML IV (10:34)
[2019-11-28] MEDS: Bupivacaine 0.5% PF 10 ML VIAL (10:35)
[2019-11-28] MEDS: Scopolamine 1mg/72hr Patch 1 PATCH TRANSDERM. (10:35)
[2019-11-28] MEDS: Acetaminophen 500 MG Tablet 1000 MG PO ×2 (10:35→21:10)
[2019-11-28] MEDS: Epinephrine (1 mg/ml) 1 MG/ML VIAL (10:35)
[2019-11-28] MEDS: Magnesium Sulfate 4gm/100mL 4 GM/100 ML IV.SOLN. IV (10:35)
[2019-11-28] MEDS: Celecoxib 200 MG Capsule 400 MG PO (10:35)
[2019-11-28] MEDS: Gabapentin 600 MG Tablet PO (10:50)
[2019-11-28] MEDS: Cefazolin 2 GM in 0.9% Normal Saline 100 ML IV (11:58)
[2019-11-28] MEDS: dexAMETHasone 10 MG/ML Vial IV (12:23)
[2019-11-28] MEDS: Betamethasone/Betamethasone 30 MG/5 ML Vial (12:35)
--- NOTE | 2019-11-28 14:06 | RAD_ITS ---
STUDY: X-RAY - RIGHT KNEE REASON FOR EXAM: Male, 69 years old. Postop TECHNIQUE: 2 view(s) of the knee. COMPARISON: 09/21/2019 FINDINGS: The patient is status post right knee arthroplasty with intact hardware in satisfactory alignment. There is subcutaneous air noted, consistent with the patient''s postoperative state. There is no evidence of fracture or dislocation. There are stable degenerative changes. There are no radiodense foreign bodies. RAD/Knee 1 or 2 Views IMPRESSION: Status post right knee arthroplasty with intact hardware and satisfactory alignment. No fracture or dislocation. Electronically Signed: Kaushal Marte, at 17:27 EST Tel , Service support ,
--- NOTE | 2019-11-28 14:10 | OP.PCM_ITS ---
Report of Operation Date of Procedure: 11/28/19 Description of Surgical Findings:: Preoperative diagnosis: Right knee DJD with flexion contracture Postoperative diagnosis: Same Procedure: Right total knee arthroplasty Implant: Morgan triathlon cemented femoral component size 5, cemented tibial baseplate size 6, cemented asymmetric patella size 35, polyethylene X3 size 9 CS Anesthesia: Spinal with adductor canal block Tourniquet time: [70] minutes at 300 mmHg Complications: None Condition: Stable to PACU Estimated blood loss: 25 cc Indication for procedure: This is a 69-year-old male with long standing degenerative joint disease of the knee who has failed conservative treatment and wished to proceed with elective total knee arthroplasty. Risk benefits and alternatives were reviewed including; risk of bleeding, infection, nerve artery and tissue damage, continued pain, postoperative stiffness, venous thromboembolism, need for postoperative rehabilitation, mechanical feel to the knee, and expected postoperative course. Procedure: The patient was met in the preoperative holding area. The operative extremity was identified by both patient and physician and was marked. Patient was met by anesthesia. An adductor canal block was placed by anesthesia postoperatively the patient was brought back to the operating room on a wheeled cart and transferred to the operating table in the supine position. Anesthesia was started. A well-padded tourniquet was placed on the operative extremity. The patient was prepped and draped in the usual sterile fashion. A timeout was called to ensure the proper patient procedure and extremity were being contemplated. An Esmarch was used to exsanguinate the extremity. The tourniquet was inflated. A 10 blade scalpel was used to make a midline incision down through the skin and subcutaneous tissue. Skin retractors placed. Bovie was used to perform meticulous hemostasis. full-thickness flaps were elevated medial and lateral along the joint capsule. A deep blade scalpel was used to perform a medial parapatellar arthrotomy. The knee was brought to full extension. A Bovie was used to release the soft tissues off the most proximal aspect of the medial tibial plateau a three-quarter inch curved osteotome was also used for this process. The infrapatellar fat pad was excised. The fat pad was excised partially anterior lateral portion the anterior medial was elevated from the femur. the patella was everted. The knee was brought into flexion. An intramedullary drill was used followed by flexible intramedullary guide laurent. The distal femoral cutting block was placed and set to remove 12 mm of bone and 5 degrees of valgus. The block was secured with pins and an oscillating saw was used to complete the distal femoral cut. During this, and all bony cuts retractors were used to protect the collateral ligaments. At this point a femoral sizer was used to measure the AP dimension of the femur. The sizer block was pinned parallel to the epicondylar access for external rotation. The sizing block was removed and the appropriately sized 4-in-1 cutting block was placed over the previously made pinholes. It was checked with an miguel wing and the block was secured with pins. An oscillating saw was used to complete the anterior cut followed by the posterior cut followed by the posterior chamfer cut followed by the anterior chamfer cut. The block was removed as well as the fragments. A ronguer was used to remove excess osteophytes. The medial and lateral meniscus were excised as well as the ACL. At this point a PCL retractor was placed and an intramedullary drill was passed down the tibial canal followed by a solid intramedullary guide laurent. The tibial cutting block was attached and set to remove 9 mm of bone from the high side. This was checked with an external alignment drop laurent for slope and tilt. It was pinned into place. An oscillating saw was used to complete the tibial plateau cut and the block was removed. A large osteotome was used to elevate the fragment and a Sin and a Bovie were used to free the fragment from the surrounding soft tissue. A rongeur was once again used to remove osteophytes a lamina health information technologist was used to evaluate the posterior capsular structures. A three-quarter inch curved osteotome was used to remove posterior osteophytes. A spacer block was inserted in both extension and flexion to ensure adequate spacing. Trials were inserted full extension and flexion were achieved in varus and valgus stability throughout range of motion were seen, balancing techniques were performed. At this point the attention was turned towards the patella. A caliper was used to ensure sufficient bone stock to remove 10 mm of bone. A reamer was used to perform this task. Lug holes were made for the appropriate-sized patella. The patella trial was inserted and there was good patellar tracking with knee range of motion. The tibial baseplate was allowed to float into rotation and was marked on the tibial plateau with a Bovie. Lug holes were made in the femur and trials were removed. The tibial baseplate was then sized and its preparation was completed with a fin punch. The knee was thoroughly irrigated. A posterior capsular injection was performed with our standard cocktail. The knee was brought into flexion and irrigated again. The tibial baseplate was cemented. Excess cement was removed with curettes. The polyethylene component was inserted. The femoral component was cemented. The knee was brought into full extension and placed on a bump. The patellar component was cemented. At this point a Betadine rinse was placed and thoroughly irrigated after a few minutes. This was followed by an Iricept rinse which was allowed to sit for 1 minute and then thoroughly irrigated.At this point all gloves were changed. The knee was thoroughly irrigated the joint capsule was closed with #2 FiberWire and #1 Ethibond. Tourniquet was let down followed by 0 Vicryl and 2-0 Vicryl in the subcutaneous tissues. followed by litzy in the skin. Dressing was applied in the form of Mepilex silver dressing web roll and an Gera wrap from the foot to the groin. The patient tolerated the procedure well, all counts were correct patient was brought back to the PACU in stable condition.
[2019-11-28] MEDS: Cefazolin 1 GM/50 ML BAG IV ×2 (14:45→23:46)
[2019-11-28] MEDS: Senna/Docusate Sodium 1 Tablet 2 TABLET PO (21:09)
[2019-11-28] MEDS: Tamsulosin HCl 0.4 MG Capsule PO (21:09)
[2019-11-28] MEDS: Losartan Potassium 100 MG Tablet PO (21:09)
[2019-11-28] MEDS: Pravastatin 40 MG Tablet PO (21:09)
[2019-11-29 02:44] VITALS: BP 123/72; PULSE 83; RESP 18; TEMP 36.5; O2SAT 97
[2019-11-29 06:00] LABS: Hematocrit 34.4 % (40-54); Hemoglobin 11.6 g/dL (13.0-16.5); Mean Corp Hgb Conc 33.7 g/dL (32-36); Mean Corpuscular Hgb 30.8 pg (27.0-32.0); Mean Corpuscular Volume 91.2 fL (80-94); Mean Platelet Vol. 9.6 fl (6.2-12.0); Platelet Count 223 K/mm3 (150-450); RBC Distribution Width CV 12.9 % (11.6-14.6); RBC Distribution Width SD 42.4 fl (35.1-43.9); Red Blood Count 3.77 M/mm3 (4.6-6.2); White Blood Count 9.7 K/mm3 (4.4-11.0)
[2019-11-29] MEDS: Acetaminophen 500 MG Tablet 1000 MG PO ×3 (06:08→21:16)
[2019-11-29 06:23] LABS: Anion Gap 6 (5-15); BUN 18 mg/dL (7-18); BUN/Creat Ratio 15.9 RATIO (10-20); Calcium,Total 8.6 mg/dL (8.5-10.1); Chloride 109 mmol/L (98-107); Creatinine, Serum 1.13 mg/dL (0.70-1.30); EST Glomerular Filtration Rate 69 mL/min (>60); Est Glom Filt Rate - Afr Amer 83 mL/min (>60); Estimated Creatinine Clearance 61.37 ml/min; Glucose 135 mg/dL (74-106); Potassium 4.3 mmol/L (3.5-5.1); Sodium Level 140 mmol/L (136-145)
[2019-11-29] MEDS: Cefazolin 1 GM/50 ML BAG IV (06:54)
[2019-11-29 09:08] VITALS: BP 126/57; PULSE 89; RESP 18; TEMP 36.7; O2SAT 98
[2019-11-29] MEDS: hydroCHLOROthiazide 25 MG Tablet PO (09:14)
[2019-11-29] MEDS: Senna/Docusate Sodium 1 Tablet 2 TABLET PO ×2 (09:19→21:17)
--- NOTE | 2019-11-29 10:15 | CASEMGMT ---
HUMBLE OLMOS Face to Face with patient for initial transition planning/care coordination assessment. HUMBLE OLMOS introduced self and role at [facility]. Patient sitting in chair, alert and oriented. Patient willing to participate in assessment and is able to answer all questions appropriately. Care providers, pharmacy, and demographics verified. Patient wishes to discharge home, and would like outpatient therapy at [facility]. Patient states he has no further needs or concerns at this time. CM to follow for discharge planning needs that may arise. PCP: Eran Specialists: [facility] Urologist; Mj Hawkins Pharmacy: [facility] Insurance: [employer] [facility] Prescription Benefit: yes Living Will/HPOA: none LNOK: Living Arrangements: Patient lives with in split level home with 7-8 steps with railing between levels. Patient independent at home prior to surgery Transportation: DME/HHC: Patient states he has shower chair, raised toilet, cane, walker at home. HUMBLE OLMOS called [facility] and scheduled first appt for Wednesday12/01/2019 1000. HUMBLE OLMOS updated the patient. Disposition Plan: Patient to discharge home with outpatient therapy, family support, and follow-plans in place. Mervat GUZMAN, RN, CM
--- NOTE | 2019-11-29 13:36 | PCM.PN.ORT ---
Subjective: Seen and examined doing well no significant pain. Denies chest pain shortness of breath dizziness nausea vomiting. He has had bloody drainage which required removal of Mepilex dressing and reinforcement with ABDs - Physical Exam Vitals/I&O's: Vital Signs Temp Pulse Resp BP Pulse Ox 98.0 F 89 18 126/57 H 98 11/29/19 09:08 11/29/19 09:08 11/29/19 09:08 11/29/19 09:08 11/29/19 09:08 Oxygen Delivery Method Room Air Weight: 248 lb Body Mass Index (BMI) 37.7 Intake and Output for Last 24 Hours 11/27/19 11/28/19 11/29/19 23:59 23:59 23:59 Intake Total 3330 / 3330 700 / 700 Output Total 1500 / 1500 650 / 650 Balance 1830 / 1830 50 / 50 General: Alert, Oriented x3, Cooperative, No apparent distress Extremities: - - Incision looks well approximated but he drainage on dressing compartment soft neurovascular intact. Laboratory Results 11/29/19 05:28: WBC 9.7, RBC 3.77 L, Hgb 11.6 L, Hct 34.4 L, MCV 91.2, MCH 30.8, MCHC 33.7, RDW Std Deviation 42.4, RDW Coeff of Berto 12.9, Plt Count 223, MPV 9.6 11/29/19 05:28: Sodium 140, Potassium 4.3, Chloride 109 H, Carbon Dioxide 25.0, Anion Gap 6, BUN 18, Creatinine 1.13, Estim Creat Clear Calc 61.37, Est GFR (MDRD) Af Amer 83, Est GFR (MDRD) Non-Af 69, BUN/Creatinine Ratio 15.9, Glucose 135 H, Calcium 8.6 Current Medications Acetaminophen (Tylenol) 1,000 mg PO Q8 [facility] Last Admin: 11/29/19 06:08 Dose: 1,000 mg Documented by: Apixaban (Eliquis) 2.5 mg PO BID [facility] Last Admin: 11/29/19 09:13 Dose: Not Given Documented by: Hydrochlorothiazide (Hctz) 25 mg PO DAILY [facility] Last Admin: 11/29/19 09:14 Dose: 25 mg Documented by: Hydromorphone HCl (Dilaudid Inj) 0.5 mg IV Q2H PRN PRN PRN Reason: Pain Score 6-10/10 Lactated Ringer's () 1,000 mls @ 125 mls/hr IV .Q8H [facility] Last Admin: 11/29/19 06:08 Dose: Not Given Documented by: Sodium Chloride () 250 mls @ 15 mls/hr IV .[id number] PRN PRN Reason: Saline Flush Sodium Chloride () 250 mls @ 15 mls/hr IV .[id number] PRN PRN Reason: Additional IVPB Infusion Insulin Human Lispro (Humalog Kwikpen (Bkc)) 1 - 6 unit SC Q4H PRN PRN; Protocol PRN Reason: BG>/= 180, SEE PROTOCOL Ketorolac Tromethamine (Toradol) 15 mg IV Q6H PRN PRN PRN Reason: Pain Score 1-5/10 Stop: 11/30/19 14:06 Losartan Potassium (Cozaar) 100 mg PO QHS [facility] Last Admin: 11/28/19 21:09 Dose: 100 mg Documented by: Ondansetron HCl (Zofran) 4 mg IV Q6H PRN PRN PRN Reason: NAUSEA Oxycodone HCl (Oxyir) 5 - 10 mg PO Q4H PRN PRN PRN Reason: Pain Score 4-10/10 Pravastatin Sodium (Pravachol) 40 mg PO QHS [facility] Last Admin: 11/28/19 21:09 Dose: 40 mg Documented by: Senna/Docusate Sodium (Senokot-S, Mere-Colace) 2 tablet PO BID [facility] Last Admin: 11/29/19 09:19 Dose: 2 tablet Documented by: Sodium Chloride () 5 - 15 ml IV UD PRN PRN Reason: SALINE FLUSH Sodium Chloride () 10 - 40 ml IV UD PRN PRN Reason: SALINE FLUSH Tamsulosin HCl (Flomax) 0.4 mg PO QHS [facility] Last Admin: 11/28/19 21:09 Dose: 0.4 mg Documented by: Medical Necessity - Tobacco Use Smoking Status: Former smoker Assessment/Plan Stop day #1 knee arthroplasty With increased bloody drainage we will hold Eliquis until this evening Okay to continue physical therapy range of motion reinforce dressing as needed will monitor overnight with discharge home tomorrow
--- NOTE | 2019-11-29 15:49 | CASEMGMT ---
HUMBLE OLMOS completed GRAY form with patient. GRAY form reviewed with patient. Patient had no questions or concerns at this time. Patient signed form and original filed in chart. Patient provided with copy of signed form.
[2019-11-29 16:19] VITALS: BP 128/82; PULSE 80; RESP 18; TEMP 36.3; O2SAT 95
[2019-11-29] MEDS: APIXABAN 2.5 MG TABLET PO (18:21)
[2019-11-29 21:08] VITALS: BP 129/66; PULSE 76; RESP 16; TEMP 36.6; O2SAT 96
[2019-11-29] MEDS: Tamsulosin HCl 0.4 MG Capsule PO (21:16)
[2019-11-29] MEDS: Pravastatin 40 MG Tablet PO (21:16)
[2019-11-29] MEDS: Losartan Potassium 100 MG Tablet PO (21:16)
[2019-11-30] MEDS: oxyCODONE 5 MG Tablet PO ×6 (00:56→17:51)
[2019-11-30 03:23] VITALS: BP 123/66; PULSE 78; RESP 16; TEMP 36.4; O2SAT 96
[2019-11-30] MEDS: Acetaminophen 500 MG Tablet 1000 MG PO ×2 (04:52→13:30)
[2019-11-30 06:00] LABS: Hematocrit 31.6 % (40-54); Hemoglobin 10.2 g/dL (13.0-16.5); Mean Corp Hgb Conc 32.3 g/dL (32-36); Mean Corpuscular Volume 92.9 fL (80-94); Mean Platelet Vol. 9.7 fl (6.2-12.0); Platelet Count 203 K/mm3 (150-450); RBC Distribution Width CV 13.2 % (11.6-14.6); RBC Distribution Width SD 44.8 fl (35.1-43.9); White Blood Count 7.8 K/mm3 (4.4-11.0)
[2019-11-30] MEDS: APIXABAN 2.5 MG TABLET PO (07:33)
[2019-11-30] MEDS: Senna/Docusate Sodium 1 Tablet 2 TABLET PO (07:33)
[2019-11-30] MEDS: hydroCHLOROthiazide 25 MG Tablet PO (07:34)
[2019-11-30 07:36] VITALS: BP 136/76; PULSE 77; RESP 16; TEMP 36.8; O2SAT 95
--- NOTE | 2019-11-30 08:58 | PCM.PN.ORT ---
Patient Problems: Active and Suspected Problems (Last Reviewed 03/21/18 @ 08:15 by Todd Vazquez) Total knee replacement status (Acute) Subjective: increased pain today now block worn off - Physical Exam Vitals/I&O's: Vital Signs Temp Pulse Resp BP Pulse Ox 98.3 F 77 16 136/76 H 95 11/30/19 07:36 11/30/19 07:36 11/30/19 07:36 11/30/19 07:36 11/30/19 07:36 Oxygen Delivery Method Room Air Weight: 248 lb Body Mass Index (BMI) 37.7 Intake and Output for Last 24 Hours 11/28/19 11/29/19 11/30/19 23:59 23:59 23:59 Intake Total 3330 / 3330 1800 / 2300 1100 / 1100 Output Total 1500 / 1500 1200 / 2000 1550 / 1550 Balance 1830 / 1830 600 / 300 -450 / -450 General: Alert, Oriented x3, No apparent distress Extremities: - - continues t have bloody drainage. 1 ABD changed since yesterday morning. incisin looks good. no sign if infectin or blood clot. NVI Laboratory Results 11/30/19 05:35: WBC 7.8, RBC 3.40 L, Hgb 10.2 L, Hct 31.6 L, MCV 92.9, MCH 30.0, MCHC 32.3, RDW Std Deviation 44.8 H, RDW Coeff of Berto 13.2, Plt Count 203, MPV 9.7 Current Medications Acetaminophen (Tylenol) 1,000 mg PO Q8 [facility] Last Admin: 11/30/19 04:52 Dose: 1,000 mg Documented by: Apixaban (Eliquis) 2.5 mg PO BID [facility] Last Admin: 11/30/19 07:33 Dose: 2.5 mg Documented by: Hydrochlorothiazide (Hctz) 25 mg PO DAILY [facility] Last Admin: 11/30/19 07:34 Dose: 25 mg Documented by: Hydromorphone HCl (Dilaudid Inj) 0.5 mg IV Q2H PRN PRN PRN Reason: Pain Score 6-10/10 Sodium Chloride () 250 mls @ 15 mls/hr IV .[id number] PRN PRN Reason: Saline Flush Sodium Chloride () 250 mls @ 15 mls/hr IV .[id number] PRN PRN Reason: Additional IVPB Infusion Insulin Human Lispro (Humalog Kwikpen (Bkc)) 1 - 6 unit SC Q4H PRN PRN; Protocol PRN Reason: BG>/= 180, SEE PROTOCOL Ketorolac Tromethamine (Toradol) 15 mg IV Q6H PRN PRN PRN Reason: Pain Score 1-5/10 Stop: 11/30/19 14:06 Losartan Potassium (Cozaar) 100 mg PO QHS [facility] Last Admin: 11/29/19 21:16 Dose: 100 mg Documented by: Ondansetron HCl (Zofran) 4 mg IV Q6H PRN PRN PRN Reason: NAUSEA Oxycodone HCl (Oxyir) 5 - 10 mg PO Q4H PRN PRN PRN Reason: Pain Score 4-10/10 Last Admin: 11/30/19 04:53 Dose: 10 mg Documented by: Oxycodone HCl (Oxyir) 15 mg PO Q4H PRN PRN PRN Reason: Pain Score 6-10/10 [facility] Admin: 11/29/19 21:16 Dose: 40 mg Documented by: Senna/Docusate Sodium (Senokot-S, Mere-Colace) 2 tablet PO BID [facility] Last Admin: 11/30/19 07:33 Dose: 2 tablet Documented by: Sodium Chloride () 5 - 15 ml IV UD PRN PRN Reason: SALINE FLUSH Sodium Chloride () 10 - 40 ml IV UD PRN PRN Reason: SALINE FLUSH T[facility]ulosin [facility]ax) [facility] Last Admin: 11/29/19 21:16 Dose: 0.4 mg Documented by: Medical Necessity - Tobacco Use Smoking Status: Former smoker Assessment/Plan All Active Problems (Last Reviewed 03/21/18 @ 08:15 by Todd Vazquez) Total knee replacement status (Acute) will continue to change dressing as needed and clean with Betadine each dressing. will hold on showering until bleeding has stopped. will increase pain medication ok to continue Eliquis NM Home Fu 2 weeks.
--- NOTE | 2019-11-30 09:02 | DCINST_ITS ---
Discharge Diet: No Restrictions Call your doctor if you observe: Shortness of breath, Dizziness, Fainting spells, Chest pain Additional Instructions: Ice and elevate next week while not ambulating. Encourage ambulation weightbearing as tolerated. Encourage FULL knee extension and flexion 1 time EVERY time you get up and down and MULTIPLE times per day. may shower in 1 week or if drainage has stopped sooner, until then change ABD pad at least once daily and more as needed. clean with betadine each time it is changed. in 1 week or sooner if drainage has stopped Remove the dressing prior to shower gently wash with warm water and antibacterial soap then pat dry place ABD pad and JEFFERY hose over top. This is to be done daily. do not submerge for 3 weeks. If not showering daily must clean incision and change dressing daily. Do not allow animals near incision. Must keep clean. Follow anticoagulation recommendations. Start physical therapy as directed in the hospital. call Dr. Hawkins with any concerns. Allergies/Adverse Reactions: Allergies No Known Allergies Allergy (Verified 11/28/19 10:18) Medications to take at Discharge losartan 100 mg tablet 100 mg PO QHS 11/22/17 pravastatin 40 mg tablet 40 mg PO QHS 11/22/17 tamsulosin 0.4 mg capsule 0.4 mg PO QHS 11/22/17 hydrochlorothiazide 25 mg tablet 25 mg PO DAILY #90 tab 10/06/19 Primary Care Physician: Saleem Barillas MD [Primary Care Provider] - Test Results: Test results from this visit will be discussed in further detail at your follow- up appointment, if applicable. Please Follow Up With: [employer] When: Wednesday
--- NOTE | 2019-11-30 09:10 | PCM.DC.SUM ---
Discharge Date and Diagnosis - Problem List Patient Problems: Active and Suspected Problems (Last Reviewed 03/21/18 @ 08:15 by Todd Vazquez) Total knee replacement status (Acute) Date of Admission: 11/28/19 Date of Discharge: 11/30/19 - Primary Discharge Diagnosis Active and Suspected Problems (Last Reviewed 03/21/18 @ 08:15 by Todd Vazquez) Total knee replacement status (Acute) Hospital Course and Treatment Operations: total knee replacement Summary of Care Provided: The patient is a 69 year old M who has long history of degenerative joint disease to the knee who has failed conservative treatment and wished to undergo elective total knee arthroplasty. Patient underwent the aformentioned procedure on the admission date without any intraoperative complications. Patient did receive pre-and postoperative antibiotics which were discontinued within 23 hours postoperatively. Patient did receive [spinal anesthesia as well as an adductor canal block postoperatively]. pain was controlled with IV and transition to p.o. pain medication Patient will be discharged home with oxycodone and will continue Tylenol as well. Patient had minimal intraoperative blood loss and 2gm tranexamic acid was administered there was no need for postoperative blood transfusion Patients vital signs remained stable. Patient did have postoperative bleeding which required removal of Mepilex and reinforcement with ABD pads 1 ABD pad was changed in 24 hours with slow bleeding when patient flexes knee. Patient will change pad daily and as needed to keep incision clean and dry he will clean incision with Betadine on each dressing change.. Patient may shower in 1 week. patient was started on both mechanical and chemical DVT per prophylaxis postoperatively in the form of SCDs JEFFERY hose and [Eliquis 2.5 mg twice daily for which she will continue for 2 additional weeks post hospital discharge]. . not to submerge for 3 weeks. . Patient will follow-up in the office in 2 weeks or sooner if concerned. No intrahospital complications. Patient Problems: Active and Suspected Problems (Last Reviewed 03/21/18 @ 08:15 by Todd Vazquez) Total knee replacement status (Acute) - Physical Exam Vitals/I&O's: Vital Signs Temp Pulse Resp BP Pulse Ox 98.3 F 77 16 136/76 H 95 11/30/19 07:36 11/30/19 07:36 11/30/19 07:36 11/30/19 07:36 11/30/19 07:36 Oxygen Delivery Method Room Air Weight: 248 lb Body Mass Index (BMI) 37.7 Intake and Output for Last 24 Hours 11/28/19 11/29/19 11/30/19 23:59 23:59 23:59 Intake Total 3330 / 3330 1800 / 2300 1100 / 1100 Output Total 1500 / 1500 1200 / 2000 1550 / 1550 Balance 1830 / 1830 600 / 300 -450 / -450 Laboratory Results 11/30/19 05:35: WBC 7.8, RBC 3.40 L, Hgb 10.2 L, Hct 31.6 L, MCV 92.9, MCH 30.0, MCHC 32.3, RDW Std Deviation 44.8 H, RDW Coeff of Berto 13.2, Plt Count 203, MPV 9.7 Current Medications Acetaminophen (Tylenol) 1,000 mg PO Q8 [facility] Last Admin: 11/30/19 04:52 Dose: 1,000 mg Documented by: Apixaban (Eliquis) 2.5 mg PO BID [facility] Last Admin: 11/30/19 07:33 Dose: 2.5 mg Documented by: Hydrochlorothiazide (Hctz) 25 mg PO DAILY [facility] Last Admin: 11/30/19 07:34 Dose: 25 mg Documented by: Hydromorphone HCl (Dilaudid Inj) 0.5 mg IV Q2H PRN PRN PRN Reason: Pain Score 6-10/10 Sodium Chloride () 250 mls @ 15 mls/hr IV .[id number] PRN PRN Reason: Saline Flush Sodium Chloride () 250 mls @ 15 mls/hr IV .[id number] PRN PRN Reason: Additional IVPB Infusion Insulin Human Lispro (Humalog Kwikpen (Bkc)) 1 - 6 unit SC Q4H PRN PRN; Protocol PRN Reason: BG>/= 180, SEE PROTOCOL Ketorolac Tromethamine (Toradol) 15 mg IV Q6H PRN PRN PRN Reason: Pain Score 1-5/10 Stop: 11/30/19 14:06 Losartan Potassium (Cozaar) 100 mg PO QHS [facility] Last Admin: 11/29/19 21:16 Dose: 100 mg Documented by: Ondansetron HCl (Zofran) 4 mg IV Q6H PRN PRN PRN Reason: NAUSEA Oxycodone HCl (Oxyir) 5 - 10 mg PO Q4H PRN PRN PRN Reason: Pain Score 4-10/10 Last Admin: 11/30/19 04:53 Dose: 10 mg Documented by: Oxycodone HCl (Oxyir) 15 mg PO Q4H PRN PRN PRN Reason: Pain Score 6-10/10 Pravastatin Sodium (Pravachol) 40 mg PO QHS [facility] Last Admin: 11/29/19 21:16 Dose: 40 mg Documented by: Senna/Docusate Sodium (Senokot-S, Mere-Colace) 2 tablet PO BID [facility] Last Admin: 11/30/19 07:33 Dose: 2 tablet Documented by: Sodium Chloride () 5 - 15 ml IV UD PRN PRN Reason: SALINE FLUSH Sodium Chloride () 10 - 40 ml IV UD PRN PRN Reason: SALINE FLUSH Tamsulosin HCl (Flomax) 0.4 mg PO QHS [facility] Last Admin: 11/29/19 21:16 Dose: 0.4 mg Documented by: Discharge Diet: No Restrictions Call your doctor if you observe: Shortness of breath, Dizziness, Fainting spells, Chest pain Home Medications: Medications to take at Discharge losartan 100 mg tablet 100 mg PO QHS 11/22/17 pravastatin 40 mg tablet 40 mg PO QHS 11/22/17 tamsulosin 0.4 mg capsule 0.4 mg PO QHS 11/22/17 hydrochlorothiazide 25 mg tablet 25 mg PO DAILY #90 tab 10/06/19 Acetaminophen [Tylenol] 1,000 mg PO Q6H PRN #100 tab 11/30/19 Apixaban [Eliquis] 2.5 mg PO BID #28 tab 11/30/19 Oxycodone [Oxyir] 15 mg PO Q4H PRN PRN #70 tablet 11/30/19 Following Prescrptions Were Given to Patient: Apixaban [Eliquis] 2.5 mg PO BID #28 tab Transmission Status: Pending to [id number] Oxycodone [Oxyir] 15 mg PO Q4H PRN PRN #70 tablet PRN Reason: Pain Score 6-10/10 Transmission Status: Sent to [facility] Acetaminophen [Tylenol] 1,000 mg PO Q6H PRN #100 tab Transmission Status: Pending to [id number] Primary Care Physician: Saleem Barillas MD [Primary Care Provider] - Please Follow Up With: [employer] When: Wednesday Additional Instructions: Ice and elevate next week while not ambulating. Encourage ambulation weightbearing as tolerated. Encourage FULL knee extension and flexion 1 time EVERY time you get up and down and MULTIPLE times per day. may shower in 1 week or if drainage has stopped sooner, until then change ABD pad at least once daily and more as needed. clean with betadine each time it is changed. in 1 week or sooner if drainage has stopped Remove the dressing prior to shower gently wash with warm water and antibacterial soap then pat dry place ABD pad and JEFFERY hose over top. This is to be done daily. do not submerge for 3 weeks. If not showering daily must clean incision and change dressing daily. Do not allow animals near incision. Must keep clean. Follow anticoagulation recommendations. Start physical therapy as directed in the hospital. call Dr. Hawkins with any concerns. Medical Necessity - Tobacco Use Smoking Status: Former smoker Meaningful Use Info Meaningful Use Diagnoses (Choose all that apply): None applicable
[2019-11-30 11:26] VITALS: BP 131/80; PULSE 80; RESP 16; TEMP 36.3; O2SAT 99
[2019-11-30 14:13] VITALS: BP 145/82; PULSE 88; RESP 16; TEMP 36.6; O2SAT 95
== END 2019-11-30 18:50 | disposition home or self-care (01) ==
LOC: SDC 14:23 → MS3 14:23
PROVIDERS: Anesthesiology; Admitting Provider Orthopaedic Surgery; Family Provider Family Medicine; PCP Family Medicine; Referring Provider Orthopaedic Surgery; Visit Provider Orthopaedic Surgery
PROC: (CPT 27447; principal; 2019-11-28 11:45)
DX: M17.11 Unilateral primary osteoarthritis, right knee (principal); G89.29 Other chronic pain; E78.00 Pure hypercholesterolemia, unspecified; K21.9 Gastro-esophageal reflux disease without esophagitis; I10 Essential (primary) hypertension; Z79.899 Other long term (current) drug therapy; Z79.82 Long term (current) use of aspirin; Z87.891 Personal history of nicotine dependence
CPT/HCPCS: 01400; 27447; 64447; 36415; 73560; 80048; 82962; 85027; 87081; 93005; 96365; 96366; 97110; 97116; 97162; 97166; 97530; 97535; 99218; 99251; C1776; J7120; G0378; G0379; G0463; J0702; J3490

== ENCOUNTER 2020-01-10 16:00 | Outpatient (RCR) | payer MEDICARE, SELFPAY ==
[2019-11-28 15:28] VITALS: BMI 37.7
--- NOTE | 2019-12-01 10:51 | HP.PTEVAL ---
Patient's Visit Information ERICA HORTON Jr. is a 69 year old M referred to Physical Therapy by Timoteo Hawkins DO with a diagnosis of s/p R TKA 11/28. Date of Evaluation: 12/01/19 Physical Therapist: SAMANTHA JonesT, OCS, CSCS - Visit Plan Frequency: 3x /Week Duration: 4-6 Weeks Plan: 3x/week for 3-6 weeks for. 1. Patellar mobs and R knee A/PROM. 2. mat to gym based strength LE as tolerated. 3. gait trainign and progression on steps and from walker. 4. swelling management with STM and vaso and ice as needed. - Subjective Findings: R TKA 3 days ago on the . Dr. Soriano. Had years of trouble with R knee. L one was done 2 yrs ago. Pain in R knee is 3/10. using pain pills which help take the edge off. Woke up a few times last night but 2-3 hours modesta time is OK. Using wh walker now but not needed prior to surgery. Has split level house with 8 steps with railing using L leg right now. Home from hospital lastnight and stayed extra due to blood seepage. HEP: Leg raise is hard, HS, QS. Not employed, was a chrissie. Enjoys hunting adn fishing daily when healthy, deer and coyote. Wants to walk comfortably and do steps. Dresses self, bathroom self, sponge bath for 7 days. Needed help with shoes and stockings. - Pain R knee Pain Intensity (Out of 10): 3 Pain Intensity Range: 7 - Objective Walks with wh walker with R antalgia but safe adn mod I. Stands today without AD I putting more weight through L but able to close eyes and stand safely. requires UE to trasnfer out of chair. I with trasnfer to and fro supine. Steps not tested today. AROM L knee 0-122. R knee today is -2 ext adn 72 flexion to start adn 80 after heel slides. Patella stiff on R vs. L. Hip movement is symmetrical B but weaker today on R 4- vs 4. ankle strength 4/5 adn AROM WFL. SEnsation LE WNL to gross light touch. AROM hips WFL B. Incision is dressed and no signs of excessive red, heat or swelling around gauze. Some drainage appropriately seeping into gauze red. Pt is alert and oriented x3 adn doing well today. - Goals Goal 1:: ST goals: AROM 0-115 R knee for function Goal Time Frame: 2-4 Weeks Goal 2:: Sleep through night without waking due to pain Goal Time Frame: 2-4 Weeks Goal 3:: Walk without AD at home without pain increase Goal Time Frame: 2-4 Weeks Goal 4:: LT: Walk community including up and down steps reciprocally without increased pain or antalgia. Goal Time Frame: 4-6 Weeks Goal 5:: Pt report 90% improvement in condition and I in EX management. Goal Time Frame: 4-6 Weeks Goal 6:: Plan to return to hunting Goal Time Frame: 4-6 Weeks - Rehabilitation Potential Physical Therapy Diagnosis: s/p R TKA Rehabilitation Potential: Good - Anticipated Interventions Patient/Client Instruction: Educate patient on: Condition, Plan of Care For the Purpose of:: To decrease pain, To increase ROM, To improve muscle performance and motor function, To improve performance and independence with ADL's, To improve ability of physical actions for home/community/work/leisure Therapeutic Exercise to Include: Strength training, Flexibilty training, Gait and locomotor training, Passive ROM, Active ROM For the Purpose of:: To decrease pain, To increase ROM, To improve muscle performance and motor function, To increase tolerance to activity/condition/position, To improve ability of physical actions for home/community/work/leisure, To improve balance Manual Therapy Techniques to Include: Mobilization, Soft tissue mobilization For the Purpose of:: To decrease pain, To increase ROM Cryotherapy (ice pack, ice massage): Yes Vasopneumatic device: Yes For the Purpose of:: To decrease swelling/inflammation, To increase ROM, To improve nutrient delivery to tissue Thank you for the opportunity to evaluate your patient. For Medicare and Medicare HMO plans, please review the plan of care and approve it. It will need to be FAXED BACK to us at [phone] for Medicare purposes. For Medicare only, by signing this I certify the plan of care. Please let me know if there are questions or concerns regarding this plan of care. Physician Signature: Date:
--- NOTE | 2020-01-10 17:02 | HP.PTDCSUM ---
HP - PT D/C Summary It has been my pleasure to treat ERICA HORTON Jr. under orders from Timoteo Hawkins DO, for the diagnosis of s/p R TKA 11/28 for a total of 13 visit(s). Discharge Date: 01/10/20 Please see the following information for a summary of their discharge status. - Subjective Subjective: Feels better overall. Less stiffness. No pain in a while. Sleep is OK and a lot better than it was. No AD needed. Steps are OK at home. Activities at home are close to normal. Has not been coytoe hunting b/c sitting in the truck makes it stiff. Ready to be done with PT. - Pain R knee Pain Intensity (Out of 10): 0 - Overall Improvement % Improvement: 80 - Objective Objective/Function: 0-115 AROM, PROM to 120. strength quad 4+ except last 10 degrees 4-. HSC: 4. Hip strength 4+, ankle 4+. Walking normal without antalgia, steps reciprocal without rail with only slight discomfort descending. Trasnfers normal. PT DOING VERY WELL ADN READY TO BE ON OWN. - Goals Goal 1:: ST goals: AROM 0-115 R knee for function Goal Progress: Progressing Goal 2:: Sleep through night without waking due to pain Goal Progress: Goal Met Goal 3:: Walk without AD at home without pain increase Goal Progress: Goal Met Goal 4:: LT: Walk community including up and down steps reciprocally without increased pain or antalgia. Goal Progress: Goal Met Goal 5:: Pt report 90% improvement in condition and I in EX management. Goal Progress: Progressing Goal 6:: Plan to return to hunting Goal Progress: tomorrow. - Plan Plan: d/c - D/C Information If there are questions or concerns regarding this patient's physical therapy, please feel free to call me at [phone]. Thank you for the referral of this patient. Sincerely, Jose Alonzo, DPT, OCS, CSCS
== END 2020-01-10 19:00 | disposition home or self-care (01) ==
LOC: PT 16:00
PROVIDERS: Family Provider Family Medicine; PCP Family Medicine; Referring Provider Orthopaedic Surgery; Visit Provider Orthopaedic Surgery
DX: Z96.651 Presence of right artificial knee joint (principal); Z47.1 Aftercare following joint replacement surgery
CPT/HCPCS: 97016; 97110; 97161; 97164; 97530

== ENCOUNTER → 2020-07-10 08:03 | Outpatient (CLI) | payer MEDICARE, SELFPAY ==
[2020-02-12 12:45] VITALS: BMI 37.7
[2020-07-10 10:21] LABS: AST(SGOT) 28 U/L (15-37); Alanine Aminotransfer ALT/SGPT 47 U/L (16-61); Albumin, Serum 3.6 g/dL (3.2-5.0); Alkaline Phosphatase 70 U/L (45-117); Anion Gap 4 (5-15); BUN 20 mg/dL (7-18); BUN/Creat Ratio 18.2 RATIO (10-20); Calcium,Total 8.8 mg/dL (8.5-10.1); Chloride 105 mmol/L (98-107); Cholesterol 191 mg/dL (200); EST Glomerular Filtration Rate 71 mL/min (>60); Est Glom Filt Rate - Afr Amer 86 mL/min (>60); Globulin 3.7 g/dL (2.2-4.2); Glucose 93 mg/dL (74-106); High Density Lipoprotein 37 mg/dL; Potassium 3.9 mmol/L (3.5-5.1); Protein, Total 7.3 g/dL (6.4-8.2); Sodium Level 138 mmol/L (136-145); Triglycerides 117 mg/dL; Very Low Density Lipoprotein 23 mg/dL (5-40)
== END ==
PROVIDERS: PCP Family Medicine; Referring Provider Family Medicine; Visit Provider Family Medicine
DX: I10 Essential (primary) hypertension (principal)
CPT/HCPCS: 36415; 80053; 80061

== ENCOUNTER → 2021-02-04 08:03 | Outpatient (CLI) | payer MEDICARE, SELFPAY ==
[2020-02-12 12:45] VITALS: BMI 37.7
[2021-02-04 10:31] LABS: ALB/GLOB Ratio 0.9 RATIO (0.9-2.4); AST(SGOT) 22 U/L (15-37); Alanine Aminotransfer ALT/SGPT 30 U/L (16-61); Albumin, Serum 3.5 g/dL (3.2-5.0); Alkaline Phosphatase 81 U/L (45-117); Anion Gap 6 (5-15); BUN 20 mg/dL (7-18); BUN/Creat Ratio 17.9 RATIO (10-20); Calcium,Total 8.7 mg/dL (8.5-10.1); Chloride 105 mmol/L (98-107); Cholesterol 156 mg/dL (200); Creatinine, Serum 1.12 mg/dL (0.70-1.30); EST Glomerular Filtration Rate 69 mL/min (>60); Est Glom Filt Rate - Afr Amer 84 mL/min (>60); Globulin 3.7 g/dL (2.2-4.2); Glucose 97 mg/dL (74-106); High Density Lipoprotein 41 mg/dL; Potassium 4.1 mmol/L (3.5-5.1); Protein, Total 7.2 g/dL (6.4-8.2); Sodium Level 140 mmol/L (136-145); Triglycerides 96 mg/dL; Very Low Density Lipoprotein 19 mg/dL (5-40)
== END ==
PROVIDERS: PCP Family Medicine; Visit Provider Family Medicine
DX: E78.00 Pure hypercholesterolemia, unspecified (principal)
CPT/HCPCS: 36415; 80053; 80061

== ENCOUNTER → 2021-02-18 06:58 | Outpatient (CLI) | payer MEDICARE, SELFPAY ==
[2020-02-12 12:45] VITALS: BMI 37.7
--- NOTE | 2021-02-18 09:13 | STRESSREP_ITS ---
Stress Test Report Date: 02-18-2021 Procedure: Exercise tolerance test/imaging study Indications: This of breath/dyspnea on exertion Consent: Per the patient Procedure: The patient exercised on a [place] A protocol for 7 minutes and 20 seconds completing Stage I and 1 minute and 20 seconds of Stage II achieving a peak heart rate of 137 bpm (90% predicted maximal heart rate) with a peak blood pressure 190/90 mmHg and a peak MET capacity of 9 METs. The baseline ECG demonstrated sinus rhythm. The peak exercise ECG demonstrated somatic/motion artifact with no obvious ECG changes. There were no cardiac dysrhythmias pretest, during exercise, or recovery. The functional capacity was considered. There was seen in chest discomfort/tightness in early recovery with subsequent spontaneous resolution to baseline. The examination was discontinued secondary to dyspnea. Impression: 1. Technically adequate (percent predicted maximal heart rate greater than 85%) exercise tolerance test 2. Peak exercise ECG with somatic/motion artifact with no obvious ECG changes 3. There were no cardiac dysrhythmias pretest, during exercise, or recovery 4. Nuclear images pending Myocardial perfusion imaging study: Technique: The patient was injected with 15.0 mCi of technetium 99m Cardiolite and subsequently rest SPECT Cardiolite nuclear imaging was obtained in the horizontal long, vertical long, and short axis views. The patient exercised on a Marco A protocol for 7 minutes and 20 seconds completing Stage I and 1 minute and 20 seconds of Stage II achieving a peak heart rate of 137 bpm (90% predicted maximal heart rate) with a peak blood pressure 190/90 mmHg and a peak MET capacity of 9 METs. The patient was injected with 45.0 mCi of technetium 99m Ca rdiolite and subsequently stress SPECT Cardiolite nuclear imaging was obtained in the horizontal long, vertical long, and short axis views. A gated Cardiolite study at peak stress was obtained. Interpretation: Rest and stress SPECT Cardiolite nuclear imaging status post realignment, normalization, and attenuation correction, demonstrates the appearance of relatively uniform tracer uptake/myocardial perfusion appearing within normal limit at rest. Status post stress there is an area of diminished myocardial perfusion/tracer uptake in the basal to mid lateral segments. There is end systolic thickening and brightening. The gated Cardiolite study demonstrates myocardial thickening and inward wall motion. The reported LVEF is 65%. Impression: 1. Rest and stress SPECT Cardiolite nuclear imaging demonstrate myocardial perfusion changes concerning for an area of stress-induced myocardial ischemia in portions of the basal to mid lateral segments. 2. The gated Cardiolite study reports an LVEF of 65%. This note was generated with [employer]ation software. It may contain incorrect words, spelling, and punctuation that were not noted in checking the note before signing.
== END ==
PROVIDERS: PCP Family Medicine; Referring Provider Family Medicine; Visit Provider Family Medicine
DX: R06.09 Other forms of dyspnea (principal)
CPT/HCPCS: 78452; 93017; A9500; A4216

== ENCOUNTER → 2021-02-24 10:01 | Outpatient (CLI) | payer MEDICARE, SELFPAY ==
[2020-02-12 12:45] VITALS: BMI 37.7
== END ==
PROVIDERS: PCP Family Medicine; Visit Provider Urology
DX: N40.1 Benign prostatic hyperplasia with lower urinary tract symptoms (principal)
CPT/HCPCS: 36415; 84153

== ENCOUNTER → 2021-02-26 11:04 | Outpatient (CLI) | payer MEDICARE, SELFPAY ==
[2021-02-26 09:03] VITALS: BMI 36.8
--- NOTE | 2021-02-26 11:10 | RAD_ITS ---
STUDY: X-RAY CHEST REASON FOR EXAM: Male, 70 years old. Coronary artery disease. Shortness of breath. TECHNIQUE: PA and lateral views of the chest. COMPARISON: 03/31/2017. FINDINGS: The lungs are clear and expanded. No visualized mass or infiltrate. There is no demonstrated pleural abnormality. Normal size heart. Normal mediastinum and carlin. Normal visualized pulmonary arteries. There is mild atherosclerotic calcification of the aortic arch with tortuosity. There are diffuse degenerative changes of the visualized thoracic spine. There is degenerative osteoarthritis of the bilateral shoulders. There is no demonstrated abnormality of the visualized soft tissue structures of the upper abdomen. RAD/Chest PA and Lateral IMPRESSION: No acute cardiopulmonary disease. Electronically Signed: Hernan Cabrera DO at 23:11 EDT Tel [phone], Service support ,
[2021-02-26 13:27] LABS: Absolute Lymphocyte Count 0.99 X10^3/uL (0.83-4.51); Absolute Neutrophil Count 3.4 X10^3/uL (2.0-7.7); Basophil# 0.04 X10^3/uL; Basophil% 0.8 % (0-1); Eosinophil# 0.07 X10^3/uL; Eosinophils% 1.4 % (0-5); Hematocrit 42.7 % (40-54); Hemoglobin 13.7 g/dL (13.0-16.5); Lymphocyte # 0.99 X10^3/ul (0.83-4.51); Lymphocyte % 19.8 % (19-41); Mean Corp Hgb Conc 32.1 g/dL (32-36); Mean Corpuscular Hgb 30.2 pg (27.0-32.0); Mean Corpuscular Volume 94.1 fL (80-94); Mean Platelet Vol. 9.9 fl (6.2-12.0); Monocyte# 0.51 X10^3/uL; Monocyte% 10.2 % (0-10); NRBC Flagged by Analyzer 0 % (0-5); Neutrophil # 3.37 X10^3/uL (2.7-7.7); Neutrophil % 67.6 % (47-70); Platelet Count 282 K/mm3 (150-450); RBC Distribution Width CV 13.2 % (11.6-14.6); RBC Distribution Width SD 45.5 fl (35.1-43.9); Red Blood Count 4.54 M/mm3 (4.6-6.2)
[2021-02-26 13:56] LABS: Anion Gap 4 (5-15); BUN 22 mg/dL (7-18); BUN/Creat Ratio 19.1 RATIO (10-20); Calcium,Total 9.3 mg/dL (8.5-10.1); Chloride 103 mmol/L (98-107); Creatinine, Serum 1.15 mg/dL (0.70-1.30); EST Glomerular Filtration Rate 67 mL/min (>60); Est Glom Filt Rate - Afr Amer 81 mL/min (>60); Glucose 90 mg/dL (74-106); Sodium Level 137 mmol/L (136-145)
== END ==
PROVIDERS: PCP Family Medicine; Referring Provider Internal Medicine Cardiovascular Disease; Visit Provider Internal Medicine Cardiovascular Disease
DX: R07.9 Chest pain, unspecified (principal); R94.39 Abnormal result of other cardiovascular function study; I10 Essential (primary) hypertension
CPT/HCPCS: 36415; 71046; 80048; 85025

== ENCOUNTER 2021-03-17 16:07 | Observation (INO) | payer MEDICARE, SELFPAY ==
[2021-02-26 09:03] VITALS: BMI 36.8
[2021-03-14 07:58] VITALS: BMI 36.8
[2021-03-17] VITALS (14 sets, daily range): BP systolic 118–166; BP diastolic 59–82; PULSE 68–77; RESP 16–18; TEMP 36.1–36.8; O2SAT 93–97; BMI 36.5
--- NOTE | 2021-03-17 11:29 | CL.D_ITS ---
Patient Name: ERICA HORTON Study Date: 03/17/2021 Performing: Luis Miguel Bunch MD Ht: 67.32 inches 171 cm : 1950 Wt: 238.1 lbs 108 kg Age: 70 Gender: male BSA: 2.19 PROCEDURE(S) PERFORMED MI48-BEZ/COR/LV CLINICAL PROFILE AND INDICATIONS Indications: Suspected CAD Heart Failure: None Stress/Imaging Date: 02/18/21ress Test with SPECT MPI: Positive Intermediate Risk CAD Presentations: Unstable angina. CONCLUSIONS Significant coronary artery disease involving a subtotally occluded circumflex significant coronary d isease involving a subtotal occlusion of the first obtuse marginal branch of the circumflex artery, s evere disease noted of the proximal right coronary artery, with mid segment aneurysmal dilatation and post aneurysmal at dilatation moderate disease. Preserved ejection fraction noted. RECOMMENDATIONS Referred for immediate PCI DESCRIPTION OF PROCEDURE The patient arrived to the procedure lab. The risks and benefits of the procedure as well as a full d escription of our services here and current unavailability of surgical backup were fully explained to the patient and/or their significant other prior to the catheterization. The Timeout was completed, verifying the correct patient and procedure. The patient's procedural site was prepped and draped in the usual fashion. Local anesthetic was given subcutaneously to right radial region with Lidocaine 2% . Using a modified Seldinger technique, arterial access was obtained via the right radial artery, a 6 Fr sheath was inserted. Right Coronary Artery selective angiography was then performed in multiple v iews using a 5 Fr. 4.0 [place] catheter. Left Coronary Artery selective angiography was performed in mu ltiple views using a 5 Fr. 4.0 [place] catheter. Left Ventriculography was performed in HAND projection using a 5 Fr. Pigtail catheter. LV to AO pullback pressures were then recorded. CORONARY ANGIOGRAPHY DOMINANCE: Right Dominant LEFT HEART ASSESSMENT Left Ventricular Ejection Fraction: by LV Gram 60 % Normal LV wall motion Normal Left Ventricular systolic function LEFT MAIN: Angiographically normal LEFT ANTERIOR DESCENDING ARTERY: Mild luminal irregularities DIAGONAL 1: Proximal - Mild luminal irregularities less than 30% CIRCUMFLEX ARTERY: Mild luminal irregularities less than 30% OM 1: Proximal - is occluded RIGHT CORONARY ARTERY: PROX RCA: 80 % Stenosis MID RCA: Aneursymal segment, 50 % Stenosis RT PDA: Mid - Mild luminal irregularities COMPLICATIONS PROCEDURE MEDICATIONS Fentanyl 50 mcg IV Versed 1 mg IV Fentanyl 50 mcg IV Versed 1 mg IV Oxygen: 2 L/min via nasal cannula SUMMARY OF HEMODYNAMIC DATA Time AIR REST ECG 09:52:15 AO 67/46 (54) SA 10:59:51 AO 79/52 (64) 11:03:55 AO 77/55 (65) 11:04:07 LV 94/1, 8 11:09:58 LV 95/0, 4 11:10:05 LV 92/3, 8 11:10:42 LVp 92/4, 8 11:10:46 AOp 90/53 (69) 11:10:51 AO 97/55 (74) 11:10:56 AO 99/56 (75) 11:11:01 AO 128/52 (75) 11:13:55 Signed By Luis Miguel Bunch MD On 03/17/2021 11:28:52 AM Luis Miguel Bunch MD
--- NOTE | 2021-03-17 12:35 | EKG12_ITS ---
Test Reason : AM EKG Blood Pressure : / mmHG Vent. Rate : 068 BPM Atrial Rate : 068 BPM P-R Int : 152 ms QRS Dur : 070 ms QT Int : 404 ms P-R-T Axes : 034 004 031 degrees QTc Int : 429 ms Normal sinus rhythm Inferior infarct , age undetermined , cannot be excluded Abnormal ECG Confirmed by TANIKA COTTON, LAKSHMI ([id number]), scientific editor SAMANTHA BECKFORD ([id number]) on 03/19/2021 9:09:04 AM Referred By: Luis Miguel Bunch Confirmed By:LAKSHMI SAGASTUME MD
--- NOTE | 2021-03-17 12:44 | CL.I_ITS ---
Patient Name: ERICA HORTON Study Date: 03/17/2021 Performing: Piyush Duffy MD Ht: 67 inches 171 cm : 1950 Wt: 238.4 lbs 108 kg Age: 70 Gender: male BSA: 2.19 PROCEDURE(S) PERFORMED [id number] W OR WO PTCA, SINGLE CORONARY ARTERY CLINICAL PROFILE AND CO-MORBIDITIES Indications: Suspected CAD Heart Failure: None Stress/Imaging Date: 02/18/21 Stress Test with SPECT MPI: Positive Intermediate Risk CAD Presentations: Unstable angina. CONCLUSIONS Successful ROSA to pRCA (Orsiro 4.0 x 30mm stent) RECOMMENDATIONS DESCRIPTION OF PROCEDURE The patient arrived to the procedure lab. The risks and benefits of the procedure as well as a full d escription of our services here and current unavailability of surgical backup were fully explained to the patient and/or their significant other prior to the catheterization. The Timeout was completed, verifying the correct patient and procedure. The patient's procedural site was prepped and draped in the usual fashion. Local anesthetic was given subcutaneously to right radial region with Lidocaine 2% Using a modified Seldinger technique,arterial access was obtained via the right radial artery, a 6Fr sheath was inserted. Right Coronary Artery selective angiography was then performed in multiple view s using a 5 Fr. 4.0 [place] catheter. Left Coronary Artery selective angiography was performed in multi ple views using a 5 Fr. 4.0 [place] catheter. Left Ventriculography was performed in HAND projection usi ng a 5 Fr. Pigtail catheter. LV to AO pullback pressures were then recorded.The images were reviewed and options discussed. A decision was then made to proceed with an Intervention, IVUS o r other adjunct procedure. JR 4 Guide catheter was inserted and engaged into the RCA. BMW Guide wire was advanced to the RCA . 3x15 Christopher Pro Balloon catheter was inserted. 2x15 Emerge Balloon catheter was inserted. Balloon catheter was advanced across lesion in the right coronary, proximal. PTCA balloon inflated at 14 atms for 32 secs. PTCA balloon inflated at 14 atms for 11 secs. PTCA balloon inflated at 14 atms for 11 s ecs. PTCA balloon inflated at 14 atms for 14 secs. PTCA balloon inflated at 14 atms for 28 secs. 3x15 Christopher Pro Balloon catheter was reinserted PTCA balloon inflated at 12 atms for 26 secs. PTCA ballo on inflated at 12 atms for 12 secs. PTCA balloon inflated at 12 atms for 10 secs. Angiogram performed post balloon dilatation. 4x30 Orsiro Drug Eluting stent was inserted. Drug Eluting stent was advance d across the lesion in the right coronary, proximal. 4x20 Christopher MAKENNA Balloon catheter was inserted. Balloon catheter was inserted post stent. Angiogram performed post stent deployment. The arterial sheath was pulled and a TR Band was applied for hemostasis. 14cc of air applied INTERVENTION INFORMATION LESION SITE: RCA (Proximal) Lesion Complexity: High/C, chronic total occlusion: No, lesion at bifurcation: No, thrombus present: No, lesion length: 29 mm, culprit lesion: Yes, Previously treated lesion: No Pre Stenosis: 80 % Pre intervention ELDA flow: 3 PROCEDURE: Drug Eluting Stent with pre and post dilatation Post Stenosis: 0 % Post intervention ELDA flow: 3 Lesion Devices: Funez .014 BMW [place] Straight 190cm Cardinal 6 Fr JR4 100cm Guide Catheter Amaury Sci EMERGE MR 2.00x15 BALLOON COMPLICATIONS No Complications PROCEDURE MEDICATIONS Fentanyl 50 mcg IV Versed 1 mg IV Fentanyl 50 mcg IV Versed 1 mg IV Oxygen: 2 L/min via nasal cannula Brilinta 180 mg PO @ 03/17/2021 12:15:36 Heparin 7000 unit(s) IV 03/17/2021 11:28:01 SUMMARY OF HEMODYNAMIC DATA Time AIR REST ECG 09:52:15 AO 67/46 (54) SA 10:59:51 AO 79/52 (64) 11:03:55 AO 77/55 (65) 11:04:07 LV 94/1, 8 11:09:58 LV 95/0, 4 11:10:05 LV 92/3, 8 11:10:42 LVp 92/4, 8 11:10:46 AOp 90/53 (69) 11:10:51 AO 97/55 (74) 11:10:56 AO 99/56 (75) 11:11:01 AO 128/52 (75) 11:13:55 Signed By Piyush Duffy MD On 03/17/2021 12:45:03 Signed By Piyush Duffy MD On 03/17/2021 12:43:35 Piyush Duffy MD
[2021-03-17 13:05] LABS: Hematocrit 40.3 % (40-54); Hemoglobin 13.3 g/dL (13.0-16.5); Mean Corpuscular Hgb 30.6 pg (27.0-32.0); Mean Corpuscular Volume 92.6 fL (80-94); Mean Platelet Vol. 9.7 fl (6.2-12.0); Platelet Count 230 K/mm3 (150-450); RBC Distribution Width CV 12.8 % (11.6-14.6); RBC Distribution Width SD 43.8 fl (35.1-43.9); Red Blood Count 4.35 M/mm3 (4.6-6.2); White Blood Count 5.1 K/mm3 (4.4-11.0)
[2021-03-17] MEDS: 0.9% Normal Saline 1,000 ML 70 ML IV (13:24)
--- NOTE | 2021-03-17 14:11 | CRPHASE1 ---
Patient Communication PHII Cardiac Rehab Discussed with Patient:: Yes Guide to Cardiac Rehab Given to Patient:: Yes Cardiac Rehab Facility Choice List Given to Patient:: Yes - Pt chooses [facility] Choice Program [facility] CR PHII:: Communication Given to CR, Refer to [facility] [employer] Registrar:: Carlos Alberto Duffy Refer Phase II Cardiac Rehab:: Yes Sessions:: 36 sessions - 3 days/wk, 12 weeks Cardiac Rehabilitation Info Cardiac Rehabilitation Program Information: Cardiac Rehabilitation is important for patients like you who are recovering from a heart problem. Cardiac rehabilitation programs are recognized as integral to the continued care of the patient with coronary heart disease. The cardiac rehabilitation program is designed to optimize a patient's physical, psychological, and social functioning. Health daycare worker work in cardiac rehabilitation programs and assist you with getting the treatments you need to get stronger and healthier - like exercise, healthy eating habits, and medications. Cardiac rehabilitation has been show to help people with heart problems live longer and have better life enjoyment than people who do not go to cardiac rehabilitation. Please contact the Cardiac Rehabilitation Program at [facility] at in two weeks if you have not heard from them.
--- NOTE | 2021-03-17 14:13 | CRPH1.INSTRU ---
General Education CAD and cardiac anatomy and function:: Patient communicates acknowledgment Explanation of diagnoses and procedures:: Patient communicates acknowledgment Sign/Symptoms of AL:: Patient communicates acknowledgment Antiplatelet therapy: Patient communicates acknowledgment Proper use of NTG-SL: Not instructed Emergency procedures and activation of EMS: Patient communicates acknowledgment Compliance of all prescribed medications: Patient communicates acknowledgment Smoking Nicotine/Smoking Response Code:: Patient communicates acknowledgment Dyslipidemia Dyslipidemia Response Code:: Patient communicates acknowledgment Overweight/Obesity Overweight/Obesity:: Patient communicates acknowledgment Hypertension Hypertension:: Patient communicates acknowledgment Heart Disease Heart Disease Response Code:: Patient communicates acknowledgment Diabetes Diabetes:: Patient communicates acknowledgment Metabolic Syndrome Metabolic Syndrome Response Code:: Patient communicates acknowledgment Sedentary Sedentary Response Code:: Patient communicates acknowledgment Stress Stress Response Code:: Patient communicates acknowledgment
[2021-03-17] MEDS: TICAGRELOR 90 MG TABLET PO (21:09)
[2021-03-17] MEDS: Losartan Potassium 100 MG Tablet PO (21:09)
[2021-03-17] MEDS: Tamsulosin HCl 0.4 MG Capsule PO (21:09)
[2021-03-17] MEDS: Pravastatin 80 MG Tablet PO (21:09)
[2021-03-18 02:45] VITALS: BP 98/74; PULSE 72; RESP 16; TEMP 36.7; O2SAT 96
[2021-03-18 03:01] VITALS: PULSE 69
[2021-03-18 05:38] LABS: Hematocrit 39.2 % (40-54); Hemoglobin 12.7 g/dL (13.0-16.5); Mean Corp Hgb Conc 32.4 g/dL (32-36); Mean Corpuscular Hgb 30.5 pg (27.0-32.0); Mean Platelet Vol. 9.5 fl (6.2-12.0); Platelet Count 213 K/mm3 (150-450); RBC Distribution Width CV 13.1 % (11.6-14.6); RBC Distribution Width SD 44.9 fl (35.1-43.9); Red Blood Count 4.17 M/mm3 (4.6-6.2); White Blood Count 4.7 K/mm3 (4.4-11.0)
[2021-03-18 05:57] LABS: ALB/GLOB Ratio 0.9 RATIO (0.9-2.4); AST(SGOT) 19 U/L (15-37); Alanine Aminotransfer ALT/SGPT 27 U/L (16-61); Albumin, Serum 3.3 g/dL (3.2-5.0); Alkaline Phosphatase 71 U/L (45-117); Anion Gap 6 (5-15); BUN 23 mg/dL (7-18); BUN/Creat Ratio 22.3 RATIO (10-20); Calcium,Total 8.9 mg/dL (8.5-10.1); Chloride 103 mmol/L (98-107); Creatinine, Serum 1.03 mg/dL (0.70-1.30); EST Glomerular Filtration Rate 76 mL/min (>60); Est Glom Filt Rate - Afr Amer 92 mL/min (>60); Estimated Creatinine Clearance 66.41 ml/min; Globulin 3.6 g/dL (2.2-4.2); Glucose 91 mg/dL (74-106); Potassium 3.8 mmol/L (3.5-5.1); Protein, Total 6.9 g/dL (6.4-8.2); Sodium Level 137 mmol/L (136-145)
[2021-03-18 07:00] VITALS: PULSE 71
--- NOTE | 2021-03-18 08:08 | PCM.PN.CARD ---
Subjective Subjective: Patient seen and evaluated. Appears to be doing well. Objective Data Vital Signs: Vital Signs Temp Pulse Resp BP Pulse Ox 98.1 F 71 16 98/74 96 03/18/21 02:45 03/18/21 07:00 03/18/21 02:45 03/18/21 02:45 03/18/21 02:45 Oxygen Delivery Method Room Air Weight: 240 lb Body Mass Index (BMI) 36.5 Intake & Output: Intake and Output for Last 24 Hours 03/16/21 03/17/21 03/18/21 23:59 23:59 23:59 Intake Total 1026.6 / 1026.6 240 / 240 Balance 1026.6 / 1026.6 240 / 240 Lab / Micro Data Result Diagrams: 03/18/21 05:10 03/18/21 05:10 Labs: Laboratory Results - last 24 hr 03/17/21 03/18/21 03/18/21 12:58 05:10 05:10 WBC 5.1 4.7 RBC 4.35 L 4.17 L Hgb 13.3 12.7 L Hct 40.3 39.2 L MCV 92.6 94.0 MCH 30.6 30.5 MCHC 33.0 32.4 RDW Std Deviation 43.8 44.9 H RDW Coeff of Berto 12.8 13.1 Plt Count 230 213 MPV 9.7 9.5 Sodium 137 Potassium 3.8 Chloride 103 Carbon Dioxide 28.0 Anion Gap 6 BUN 23 H Creatinine 1.03 Estim Creat Clear Calc 66.41 Est GFR (MDRD) Af Amer 92 Est GFR (MDRD) Non-Af 76 BUN/Creatinine Ratio 22.3 H Glucose 91 Calcium 8.9 Total Bilirubin 0.40 AST 19 ALT 27 Alkaline Phosphatase 71 Total Protein 6.9 Albumin 3.3 Globulin 3.6 Albumin/Globulin Ratio 0.9 Cardiology Labs/Tests 03/17/21 12:58: WBC 5.1, RBC 4.35 L, Hgb 13.3, Hct 40.3, MCV 92.6, MCH 30.6, MCHC 33.0, Plt Count 230, MPV 9.7 03/18/21 05:10: WBC 4.7, RBC 4.17 L, Hgb 12.7 L, Hct 39.2 L, MCV 94.0, MCH 30.5, MCHC 32.4, Plt Count 213, MPV 9.5 03/18/21 05:10: Sodium 137, Potassium 3.8, Chloride 103, Carbon Dioxide 28.0, Anion Gap 6, BUN 23 H, Creatinine 1.03, Est GFR (MDRD) Af Amer 92, Est GFR (MDRD) Non-Af 76, BUN/Creatinine Ratio 22.3 H, Glucose 91, Calcium 8.9, Total Bilirubin 0.40 Rhythm: EKG: ECHO: Stress Test: Cardiac Cath: PCI: CT Surgery: Holter monitor: EPS: PPM: CXR: Chest CT Scan: Physical Exam Const oriented x3 and healthy appearing Orientation / Consciousness: awake HEENT normocephalic Eyes PERRL and conjunctivae normal Neck supple, no JVD and no carotid bruits Chest inspection of chest normal Resp normal respiratory effort and clear to auscultation bilaterally Cardio Palpation: normal PMI Rate: regular rate Rhythm: regular rhythm Heart Sounds: S1 normal and S2 normal Peripheral Pulses: pulses 2+ throughout GI normal to inspection, nondistended, normoactive bowel sounds Extremity normal to inspection and no clubbing, cyanosis or edema Psych mental status grossly normal Assessment & Plan Assessment/Plan (1) History of coronary artery stent placement: Status: Acute Code(s): Z95.5 - Presence of coronary angioplasty implant and graft Plan: Patient is status post angioplasty and stenting of the right coronary artery. Appears to be doing well today. Will discharge home today for outpatient follow-up. (2) Essential (primary) hypertension: Status: Chronic Code(s): I10 - Essential (primary) hypertension Plan: Continue current blood pressure medication (3) Hyperlipidemia: Status: Chronic Code(s): E78.5 - Hyperlipidemia, unspecified Plan: Continue aggressive lipid-lowering medication.
--- NOTE | 2021-03-18 08:18 | PCM.DC ---
Discharge Instructions Outpatient Procedure Reason For Visit: ABN STRESS,CHEST PAIN,HTN Diet Discharge Diet: Low fat / Low cholesterol and 2000 Calorie Control Diet Activity Discharge Activity: Return to Normal Activity Dressing / Incision Call your doctor if your incision/area has: Continuous Slow Oozing, Increased Pain/ Swelling, Increased Redness and Swelling at the incision site Call your doctor if you observe: Numbness or Tingling Follow Up Care When: Follow-up in heart group office Test Results: Test results from this visit will be discussed in further detail at your follow-up appointment, if applicable. Discharge Plan Admission Admit Date/Time: 03/17/21 16:07 Attending Provider: Luis Miguel Bunch Primary Care Provider: Saleem Barillas Instructions Patient Instructions: ED Chest Pain, Noncardiac Discharge Orders/Prescriptions Prescriptions: New Brilinta 90 mg Tablet 90 mg PO BID Qty: 60 RF: 3 Continued tamsulosin 0.4 mg capsule,extended release 24hr 0.4 mg PO QHS RF: 0 losartan 100 mg tablet 100 mg PO QHS RF: 0 hydrochlorothiazide 25 mg tablet 25 mg PO DAILY Qty: 90 RF: 0 pravastatin 80 mg tablet 80 mg PO QHS RF: 0 metoprolol succinate [Toprol XL] 25 mg tablet extended release 24 hr 25 mg PO DAILY Qty: 90 RF: 3 aspirin [Adult Low Dose Aspirin] 81 mg tablet,delayed release (DR/EC) 81 mg PO QDAY Qty: 90 RF: 2 acetaminophen 500 MG tablet 1,000 mg PO Q6H PRN Qty: 100 RF: 1 Referrals: Saleem Barillas MD [Primary Care Provider] - Disposition Disposition (needs filled in before D/C Order can be placed): Home, self care
[2021-03-18 08:45] VITALS: BP 114/40; PULSE 85; RESP 18; TEMP 36.4; O2SAT 96
[2021-03-18 09:13] VITALS: BP 114/40; PULSE 85; RESP 18; TEMP 36.4; O2SAT 96
[2021-03-18 09:15] VITALS: BP 114/40; PULSE 85
[2021-03-18] MEDS: Metoprolol(XL)Succ 25 MG Tablet PO (09:15)
[2021-03-18] MEDS: Aspirin E.C. 81 MG Tablet PO (09:15)
[2021-03-18] MEDS: TICAGRELOR 90 MG TABLET PO (09:15)
[2021-03-18] MEDS: hydroCHLOROthiazide 25 MG Tablet PO (09:15)
--- NOTE | 2021-03-18 09:26 | CASEMGMT ---
Noted pt to be started on Brilinta. TC to [facility] pharmacy, pt cost is $30. RN CM in to pt room and gave Brilinta savings card. Pt denied any questions or further needs.
--- NOTE | 2021-03-18 10:00 | EKG12_ITS ---
Test Reason : Blood Pressure : / mmHG Vent. Rate : 070 BPM Atrial Rate : 070 BPM P-R Int : 162 ms QRS Dur : 082 ms QT Int : 392 ms P-R-T Axes : 030 007 020 degrees QTc Int : 423 ms Normal sinus rhythm with sinus arrhythmia Inferior infarct , age undetermined, cannot be excluded Abnormal ECG Confirmed by TANIKA COTTON, LAKSHMI ([id number]), map editor SAMANTHA BECKFORD ([id number]) on 03/19/2021 9:13:42 AM Referred By: Luis Miguel Bunch Confirmed By:LAKSHMI SAGASTUME MD
--- NOTE | 2021-03-18 10:17 | PHA.DC.MC ---
Pharmacy Service has performed discharge medication reconciliation and counseling for this patient. 1. TICAGRELOR 90MG PO BID The patient's discharge medication list was reviewed for discrepancies and discrepancies were resolved. Home Medications losartan 100 mg tablet 100 mg PO QHS 11/22/17 tamsulosin 0.4 mg capsule 0.4 mg PO QHS 11/22/17 hydrochlorothiazide 25 mg tablet 25 mg PO DAILY #90 tab 10/06/19 acetaminophen 1,000 mg PO Q6H PRN #100 tab 11/30/19 aspirin 81 mg tablet,delayed release 81 mg PO QDAY #90 tablet 02/26/21 metoprolol succinate 25 mg tablet,extended release 24 hr 25 mg PO DAILY #90 tablet 02/26/21 pravastatin 80 mg tablet 80 mg PO QHS tablet 02/26/21 ticagrelor [Brilinta] 90 mg PO BID #60 tab 03/18/21 The patient was counseled on the following discharge medications and changes in medications for homegoing were reviewed. The Reason for Use, instructions for use, and potential side effects were reviewed for all new medications. The patient's questions regarding all of their medications were answered. The patient was able to verbally demonstrate an understanding of their discharge medications. Patient counseled by pharmacy graduate intern
== END 2021-03-18 08:25 | disposition home or self-care (01) ==
LOC: CLSP 03-18 10:07 → PCU 03-18 10:07
PROVIDERS: Specialist; Admitting Provider Internal Medicine Cardiovascular Disease; PCP Family Medicine; Referring Provider Internal Medicine Cardiovascular Disease; Visit Provider Internal Medicine Cardiovascular Disease
DX: I25.110 Atherosclerotic heart disease of native coronary artery with unstable angina pectoris (principal); I10 Essential (primary) hypertension; E66.9 Obesity, unspecified; Z68.36 Body mass index [BMI] 36.0-36.9, adult; E78.5 Hyperlipidemia, unspecified; N40.0 Benign prostatic hyperplasia without lower urinary tract symptoms; M19.90 Unspecified osteoarthritis, unspecified site; Z79.899 Other long term (current) drug therapy; Z87.891 Personal history of nicotine dependence; Z82.49 Family history of ischemic heart disease and other diseases of the circulatory system; R94.39 Abnormal result of other cardiovascular function study
CPT/HCPCS: 36415; 80053; 85027; 92928; 93005; 93458; 96365; 96366; 99152; 99153; 99218; C1725; J7030; J7040; Q9967; C1769; C1874; C1887; C1894; C9600; G0378; J1327

== ENCOUNTER → 2021-07-12 07:03 | Outpatient (CLI) | payer MEDICARE, SELFPAY ==
[2021-07-12 07:56] LABS: Absolute Lymphocyte Count 0.76 X10^3/uL (0.83-4.51); Absolute Neutrophil Count 2.7 X10^3/uL (2.0-7.7); Basophil# 0.04 X10^3/uL; Eosinophil# 0.09 X10^3/uL; Eosinophils% 2.2 % (0-5); Hematocrit 23.5 % (40-54); Hemoglobin 6.7 g/dL (13.0-16.5); Lymphocyte # 0.76 X10^3/ul (0.83-4.51); Lymphocyte % 18.3 % (19-41); Mean Corp Hgb Conc 28.5 g/dL (32-36); Mean Corpuscular Hgb 21.6 pg (27.0-32.0); Mean Corpuscular Volume 75.8 fL (80-94); Mean Platelet Vol. 9.3 fl (6.2-12.0); Monocyte# 0.52 X10^3/uL; Monocyte% 12.5 % (0-10); NRBC Flagged by Analyzer 0 % (0-5); Neutrophil # 2.69 X10^3/uL (2.7-7.7); Neutrophil % 64.8 % (47-70); Platelet Count 353 K/mm3 (150-450); RBC Distribution Width CV 17.3 % (11.6-14.6); RBC Distribution Width SD 47.5 fl (35.1-43.9); White Blood Count 4.2 K/mm3 (4.4-11.0)
[2021-07-12 08:23] LABS: ALB/GLOB Ratio 0.9 RATIO (0.9-2.4); AST(SGOT) 18 U/L (15-37); Alanine Aminotransfer ALT/SGPT 25 U/L (16-61); Albumin, Serum 3.4 g/dL (3.2-5.0); Alkaline Phosphatase 71 U/L (45-117); Anion Gap 8 (5-15); BUN 20 mg/dL (7-18); BUN/Creat Ratio 17.5 RATIO (10-20); Calcium,Total 8.2 mg/dL (8.5-10.1); Chloride 102 mmol/L (98-107); Cholesterol 123 mg/dL (200); Creatinine, Serum 1.14 mg/dL (0.70-1.30); EST Glomerular Filtration Rate 68 mL/min (>60); Est Glom Filt Rate - Afr Amer 82 mL/min (>60); Globulin 3.7 g/dL (2.2-4.2); Glucose 104 mg/dL (74-106); High Density Lipoprotein 36 mg/dL; Potassium 3.9 mmol/L (3.5-5.1); Protein, Total 7.1 g/dL (6.4-8.2); Sodium Level 135 mmol/L (136-145); Triglycerides 80 mg/dL; Very Low Density Lipoprotein 16 mg/dL (5-40)
== END ==
PROVIDERS: PCP Family Medicine; Referring Provider Family Medicine; Visit Provider Family Medicine
DX: I25.10 Atherosclerotic heart disease of native coronary artery without angina pectoris (principal)
CPT/HCPCS: 36415; 80053; 80061; 85025

== ENCOUNTER → 2021-07-17 09:03 | Outpatient (CLI) | payer MEDICARE, SELFPAY ==
[2021-07-17 10:01] LABS: Platelet Count 368 K/mm3 (150-450); RET-HE 23.5 pg (30-35); Reticulocyte Count 4.07 % (0.5-1.5)
[2021-07-17 10:37] LABS: Ferritin 17 ng/mL (26-388); Iron Binding Capacity,Total 453 ug/dL (250-450)
[2021-07-17 10:55] LABS: Vitamin B12 402 pg/mL (211-911)
== END ==
PROVIDERS: PCP Family Medicine; Referring Provider Family Medicine; Visit Provider Family Medicine
DX: D64.9 Anemia, unspecified (principal)
CPT/HCPCS: 36415; 82274; 82607; 82728; 83550; 85045

== ENCOUNTER → 2021-07-18 07:53 | Outpatient (CLI) | payer MEDICARE, SELFPAY ==
[2021-07-18] VITALS (7 sets, daily range): BP systolic 125–144; BP diastolic 56–70; PULSE 70–80; RESP 16; TEMP 36.8–36.9; O2SAT 98–99
== END ==
PROVIDERS: PCP Family Medicine; Referring Provider Family Medicine; Visit Provider Family Medicine
DX: D64.9 Anemia, unspecified (principal)
CPT/HCPCS: 36415; 36430; 86850; 86900; 86901; 86920; 86922; J7040; P9016; A4216

== ENCOUNTER → 2021-07-23 15:07 | Outpatient (CLI) | payer MEDICARE, SELFPAY ==
[2021-07-23 17:41] LABS: Absolute Neutrophil Count 3.1 X10^3/uL (2.0-7.7); Basophil# 0.05 X10^3/uL; Basophil% 1.1 % (0-1); Eosinophil# 0.14 X10^3/uL; Hematocrit 32.5 % (40-54); Hemoglobin 9.6 g/dL (13.0-16.5); Lymphocyte % 15.2 % (19-41); Mean Corp Hgb Conc 29.5 g/dL (32-36); Mean Corpuscular Hgb 24.1 pg (27.0-32.0); Mean Corpuscular Volume 81.7 fL (80-94); Mean Platelet Vol. 9.6 fl (6.2-12.0); Monocyte# 0.62 X10^3/uL; Monocyte% 13.4 % (0-10); NRBC Flagged by Analyzer 0 % (0-5); Neutrophil # 3.07 X10^3/uL (2.7-7.7); Neutrophil % 66.6 % (47-70); POSITIVE MORPHOLOGY YES; Platelet Count 319 K/mm3 (150-450); RBC Distribution Width CV 22.2 % (11.6-14.6); RBC Distribution Width SD 62.3 fl (35.1-43.9); Red Blood Count 3.98 M/mm3 (4.6-6.2); White Blood Count 4.6 K/mm3 (4.4-11.0)
[2021-07-23 17:44] LABS: Differential Indicated SCAN CRITERIA MET
[2021-07-23 19:14] LABS: Differential Comment SCANNED; Platelet Estimate ADEQUATE (ADEQ)
[2021-07-23 19:15] LABS: Anisocytosis 4+; Ovalocyte RARE; Polychromasia RARE; Tear Drop Cell RARE
== END ==
PROVIDERS: PCP Family Medicine; Referring Provider Family Medicine; Visit Provider Nurse Practitioner Family
DX: D64.9 Anemia, unspecified (principal)
CPT/HCPCS: 36415; 85025

== ENCOUNTER → 2021-08-13 12:05 | Outpatient (CLI) | payer MEDICARE, SELFPAY ==
[2021-08-13 15:19] LABS: Absolute Lymphocyte Count 0.58 X10^3/uL (0.83-4.51); Absolute Neutrophil Count 3.2 X10^3/uL (2.0-7.7); Basophil# 0.04 X10^3/uL; Basophil% 0.9 % (0-1); Eosinophil# 0.06 X10^3/uL; Eosinophils% 1.3 % (0-5); Hematocrit 36.7 % (40-54); Lymphocyte # 0.58 X10^3/ul (0.83-4.51); Lymphocyte % 12.9 % (19-41); Mean Corpuscular Hgb 26.6 pg (27.0-32.0); Mean Corpuscular Volume 88.9 fL (80-94); Mean Platelet Vol. 9.9 fl (6.2-12.0); Monocyte# 0.61 X10^3/uL; Monocyte% 13.6 % (0-10); NRBC Flagged by Analyzer 0 % (0-5); Neutrophil # 3.18 X10^3/uL (2.7-7.7); Neutrophil % 70.9 % (47-70); POSITIVE DIFFERENTIAL YES; POSITIVE MORPHOLOGY YES; Platelet Count 275 K/mm3 (150-450); RBC Distribution Width CV 24.8 % (11.6-14.6); Red Blood Count 4.13 M/mm3 (4.6-6.2); White Blood Count 4.5 K/mm3 (4.4-11.0)
[2021-08-13 15:25] LABS: Differential Indicated SCAN CRITERIA MET
[2021-08-13 15:38] LABS: ALB/GLOB Ratio 0.8 RATIO (0.9-2.4); AST(SGOT) 17 U/L (15-37); Alanine Aminotransfer ALT/SGPT 26 U/L (16-61); Albumin, Serum 3.3 g/dL (3.2-5.0); Alkaline Phosphatase 66 U/L (45-117); Anion Gap 7 (5-15); BUN 20 mg/dL (7-18); BUN/Creat Ratio 18.2 RATIO (10-20); Calcium,Total 8.8 mg/dL (8.5-10.1); Chloride 105 mmol/L (98-107); EST Glomerular Filtration Rate 71 mL/min (>60); Est Glom Filt Rate - Afr Amer 85 mL/min (>60); Ferritin 38 ng/mL (26-388); Globulin 4.2 g/dL (2.2-4.2); Glucose 94 mg/dL (74-106); Iron 80 ug/dL (65-175); Iron Binding Capacity,Total 374 ug/dL (250-450); Potassium 4.2 mmol/L (3.5-5.1); Protein, Total 7.5 g/dL (6.4-8.2); Sodium Level 137 mmol/L (136-145)
[2021-08-13 15:54] LABS: Hemoglobin A1c 4.8 % (3.8-5.6)
[2021-08-13 17:02] LABS: Differential Comment SCANNED
== END ==
PROVIDERS: PCP Family Medicine; Referring Provider Family Medicine; Visit Provider Family Medicine
DX: D50.9 Iron deficiency anemia, unspecified (principal); R73.09 Other abnormal glucose
CPT/HCPCS: 36415; 80053; 82728; 83036; 83540; 83550; 85025

== ENCOUNTER → 2021-09-15 08:34 | Outpatient (CLI) | payer MEDICARE, SELFPAY ==
[2021-09-15 10:12] LABS: Absolute Lymphocyte Count 0.74 X10^3/uL (0.83-4.51); Absolute Neutrophil Count 2.6 X10^3/uL (2.0-7.7); Basophil# 0.04 X10^3/uL; Eosinophil# 0.12 X10^3/uL; Eosinophils% 3.1 % (0-5); Hematocrit 28.8 % (40-54); Lymphocyte # 0.74 X10^3/ul (0.83-4.51); Lymphocyte % 18.9 % (19-41); Mean Corp Hgb Conc 31.3 g/dL (32-36); Mean Corpuscular Hgb 26.5 pg (27.0-32.0); Mean Platelet Vol. 9.6 fl (6.2-12.0); Monocyte# 0.36 X10^3/uL; Monocyte% 9.2 % (0-10); NRBC Flagged by Analyzer 0 % (0-5); Neutrophil # 2.64 X10^3/uL (2.7-7.7); Neutrophil % 67.3 % (47-70); Platelet Count 330 K/mm3 (150-450); RBC Distribution Width CV 18.6 % (11.6-14.6); RBC Distribution Width SD 57.9 fl (35.1-43.9); Red Blood Count 3.39 M/mm3 (4.6-6.2); White Blood Count 3.9 K/mm3 (4.4-11.0)
[2021-09-15 10:52] LABS: Ferritin 17 ng/mL (26-388); Iron 45 ug/dL (65-175); Iron Binding Capacity,Total 435 ug/dL (250-450); PSA,Total- Diagnostic 6.95 ng/mL (0.0-4.0)
== END ==
PROVIDERS: PCP Family Medicine; Visit Provider Family Medicine
DX: D50.9 Iron deficiency anemia, unspecified (principal); R97.20 Elevated prostate specific antigen [PSA]
CPT/HCPCS: 36415; 82728; 83540; 83550; 84153; 85025

== ENCOUNTER → 2021-10-01 09:54 | Outpatient (CLI) | payer MEDICARE, SELFPAY ==
[2021-10-01 12:46] LABS: Hematocrit 30.6 % (40-54); Hemoglobin 9.3 g/dL (13.0-16.5); Mean Corp Hgb Conc 30.4 g/dL (32-36); Mean Corpuscular Hgb 26.6 pg (27.0-32.0); Mean Corpuscular Volume 87.4 fL (80-94); Mean Platelet Vol. 9.3 fl (6.2-12.0); POSITIVE MORPHOLOGY YES; Platelet Count 312 K/mm3 (150-450); RBC Distribution Width CV 20.9 % (11.6-14.6); RBC Distribution Width SD 64.1 fl (35.1-43.9); White Blood Count 4.3 K/mm3 (4.4-11.0)
[2021-10-01 12:52] LABS: Scan Indicated on CBC? Y/N YES- FLAGS NOTED
[2021-10-01 13:05] LABS: Ferritin 27 ng/mL (26-388); Iron 88 ug/dL (65-175)
[2021-10-01 13:22] LABS: Differential Comment SCANNED
== END ==
PROVIDERS: PCP Family Medicine; Referring Provider Internal Medicine Gastroenterology; Visit Provider Internal Medicine Gastroenterology
DX: D50.9 Iron deficiency anemia, unspecified (principal)
CPT/HCPCS: 36415; 82728; 83540; 85027

== ENCOUNTER → 2021-10-17 08:26 | Outpatient (CLI) | payer MEDICARE, SELFPAY | PROVIDERS: PCP Family Medicine; Referring Provider Internal Medicine Gastroenterology; Visit Provider Internal Medicine Gastroenterology | DX: Z11.52 Encounter for screening for COVID-19 (principal) | CPT/HCPCS: 87635; C9803; U0005; U0003 ==

== ENCOUNTER → 2021-10-20 16:41 | Outpatient (CLI) | payer MEDICARE, SELFPAY ==
--- NOTE | 2021-10-20 | IMM_PTH ---
PATIENT: ERICA HORTON Jr. LOC: [facility] U#:[id number] AGE/SX: 75/M ROOM: RE10/20/[address]: Dr. Domenico Brewer MD : 1950 BED: DIS: SPEC #: [id number] RECD: 10/22/21 12:42 STATUS: DALE REEmmanuel #: [id number] KD: 10/20/21 00:[address]: Domenico Brewer DEPT: IMMUNOHISTOCHEMISTRY RECD BY: Nicolle [place] ENTERED: 10/22/21 12:43 SP TYPE: IMMUNO OTHR DR: Dr. Saleem Hearn MD Tissues: C - PROSTATE RIGHT E - PROSTATE LEFT F - PROSTATE LEFT Procedures: 34BE12 (add) P40 (add) 34BE12 (initial) PHYSICIAN & INSTITUTION [place] [place] [id number] SPECIMEN INFORMATION: Tissue Source: C - Right base, E - Left mid, F - Left base Clinical Info: R97.20 Specimen Number: [id number] C, E & F CPT code: 11773, 24603 x5 METHODOLOGY: Deparaffinized sections of prefer/formalin-fixed tissue or PAP/DQ stained slides are incubated with monoclonal/polyclonal antibodies/oligonucleotide probes. Localization is made via biotin free immunoperoxidase method. Appropriate controls are performed and reacted as expected. Results on target cell population are indicated in the following table: RESULTS: ANTIBODY / CLONE RESULT Block C P40 (BC28) positive 34BE12 (34BE12) positive Block E P40 (BC28) positive 34BE12 (34BE12) positive Block F P40 (BC28) positive 34BE12 (34BE12) positive These tests were developed and their performance characteristics determined by [facility]. They may not have been cleared or approved by the U.S. Food and Drug Administration. The FDA has determined that such clearance or approval is not necessary. The above immunohistochemical/dualISH markers are ordered and reviewed by the Pathologist. INTERPRETATION: C. Right prostate, base, core biopsy: Benign prostatic tissue. E. Left prostate, mid, core biopsy: Benign prostatic tissue. F. Left prostate, base, core biopsy: Benign prostatic tissue. AM:krystina 10/23/2021
--- NOTE | 2021-10-20 | PROSBIL_PTH ---
PATIENT: ERICA HORTON Jr. LOC: [facility] U#:[id number] AGE/SX: 75/M ROOM: RE10/20/[address]: Dr. Domenico Brewer MD : 1950 BED: DIS: SPEC #: [id number] RECD: 10/20/21 16:36 STATUS: DALE ALAINA #: [id number] KD: 10/20/21 00:[address]: Domenico Brewer DEPT: SURGICAL PATHOLOGY RECD BY: Ken Stone ENTERED: 10/21/21 12:55 SP TYPE: PROST BX JENNIFER DR: Dr. Saleem Hearn MD Tissues: A - PROSTATE RIGHT B - PROSTATE RIGHT C - PROSTATE RIGHT D - PROSTATE LEFT E - PROSTATE LEFT F - PROSTATE LEFT Procedures: PROSTATE BX HEADER OPERATION: Prostate biopsy PRE-OP DIAGNOSIS: R97.20 TISSUE SUBMITTED: A - Right apex, B - Right mid, C - Right base, D - Left apex, E - Left mid, F - Left base MICROSCOPIC DIAGNOSIS A. Right prostate, apex, core biopsy: Focal glandular atrophy. B. Right prostate, mid, core biopsy: Benign prostatic tissue. C. Right prostate, base, core biopsy: Focal glandular atrophy. Minimal chronic inflammation. See comment. D. Left prostate, apex, core biopsy: Benign prostatic tissue. E. Left prostate, mid, core biopsy: Focal glandular atrophy. Minimal chronic inflammation. See comment. F. Left prostate, base, core biopsy: Benign prostatic tissue. See comment. AM:krystina 10/22/2021 COMMENT C, E & F - Immunohistochemistry ([id number]) supports the above diagnosis. MICROSCOPIC DESCRIPTION Slides are reviewed. GROSS DESCRIPTION A - Received is one container designated prostate, right apex. The specimen consists of two elongated fragments of light sr-white soft tissue each measuring 1.5 cm in length and 0.1 cm in diameter. The specimen is totally submitted in one cassette. B - Received is one container designated prostate, right mid. The specimen consists of two elongated fragments of light sr-white soft tissue each measuring 1.5 cm in length and 0.1 cm in diameter. The specimen is totally submitted in one cassette. C - Received is one container designated prostate, right base. The specimen consists of one elongated fragment of light sr-white soft tissue measuring 1.5 cm in length and 0.1 cm in diameter. The specimen is totally submitted in one cassette. D - Received is one container designated prostate, left apex. The specimen consists of one elongated fragment of light sr-white soft tissue measuring 1 cm in length and 0.1 cm in diameter. The specimen is totally submitted in one cassette. E - Received is one container designated prostate, left mid. The specimen consists of two elongated fragments of light sr-white soft tissue each measuring 1.5 cm in length and 0.1 cm in diameter. The specimen is totally submitted in one cassette. F - Received is one container designated prostate, left base. The specimen consists of two elongated fragments of light sr-white soft tissue each measuring 1.5 cm in length and 0.1 cm in diameter. The specimen is totally submitted in one cassette. / AM:krystina 10/21/21 TC:5 CPT: G0146
== END ==
PROVIDERS: PCP Family Medicine; Visit Provider Urology
DX: R97.20 Elevated prostate specific antigen [PSA] (principal)
CPT/HCPCS: 88305; 88341; 88342; G0416

== ENCOUNTER → 2021-10-22 10:03 | Outpatient (CLI) | payer MEDICARE, SELFPAY ==
[2021-10-22 12:45] LABS: Hematocrit 37.3 % (40-54); Hemoglobin 11.6 g/dL (13.0-16.5); Mean Corp Hgb Conc 31.1 g/dL (32-36); Mean Corpuscular Hgb 28.4 pg (27.0-32.0); Mean Corpuscular Volume 91.4 fL (80-94); Mean Platelet Vol. 9.9 fl (6.2-12.0); POSITIVE MORPHOLOGY YES; Platelet Count 243 K/mm3 (150-450); RBC Distribution Width CV 19.8 % (11.6-14.6); RBC Distribution Width SD 66.7 fl (35.1-43.9); Red Blood Count 4.08 M/mm3 (4.6-6.2); White Blood Count 4.2 K/mm3 (4.4-11.0)
== END ==
PROVIDERS: PCP Family Medicine; Referring Provider Family Medicine; Visit Provider Nurse Practitioner Family
DX: I10 Essential (primary) hypertension (principal)
CPT/HCPCS: 36415; 85027

== ENCOUNTER 2021-12-10 08:03 | Outpatient (CLI) | payer MEDICARE, SELFPAY ==
[2021-12-10 10:06] LABS: Absolute Lymphocyte Count 0.69 X10^3/uL (0.83-4.51); Absolute Neutrophil Count 2.4 X10^3/uL (2.0-7.7); Basophil# 0.05 X10^3/uL; Basophil% 1.3 % (0-1); Eosinophil# 0.09 X10^3/uL; Eosinophils% 2.4 % (0-5); Hematocrit 38.7 % (40-54); Hemoglobin 12.5 g/dL (13.0-16.5); Lymphocyte # 0.69 X10^3/ul (0.83-4.51); Lymphocyte % 18.2 % (19-41); Mean Corp Hgb Conc 32.3 g/dL (32-36); Mean Corpuscular Hgb 29.8 pg (27.0-32.0); Mean Corpuscular Volume 92.1 fL (80-94); Mean Platelet Vol. 9.8 fl (6.2-12.0); Monocyte# 0.51 X10^3/uL; Monocyte% 13.4 % (0-10); NRBC Flagged by Analyzer 0 % (0-5); Neutrophil # 2.44 X10^3/uL (2.7-7.7); Neutrophil % 64.2 % (47-70); Platelet Count 234 K/mm3 (150-450); RBC Distribution Width CV 15.3 % (11.6-14.6); RBC Distribution Width SD 50.4 fl (35.1-43.9); White Blood Count 3.8 K/mm3 (4.4-11.0)
[2021-12-10 11:15] LABS: ALB/GLOB Ratio 1.1 RATIO (0.9-2.4); AST(SGOT) 31 U/L (15-37); Alanine Aminotransfer ALT/SGPT 47 U/L (16-61); Albumin, Serum 3.6 g/dL (3.2-5.0); Alkaline Phosphatase 71 U/L (45-117); Anion Gap 10 (5-15); BUN 20 mg/dL (7-18); BUN/Creat Ratio 17.4 RATIO (10-20); Calcium,Total 8.6 mg/dL (8.5-10.1); Chloride 105 mmol/L (98-107); Cholesterol 175 mg/dL (200); Creatinine, Serum 1.15 mg/dL (0.70-1.30); EST Glomerular Filtration Rate 67 mL/min (>60); Est Glom Filt Rate - Afr Amer 81 mL/min (>60); Globulin 3.2 g/dL (2.2-4.2); Glucose 99 mg/dL (74-106); High Density Lipoprotein 39 mg/dL; Potassium 4.1 mmol/L (3.5-5.1); Protein, Total 6.8 g/dL (6.4-8.2); Sodium Level 140 mmol/L (136-145); Triglycerides 167 mg/dL; Very Low Density Lipoprotein 33 mg/dL (5-40)
[2021-12-11 16:45] LABS: Ferritin 64 ng/mL (26-388); Iron 308 ug/dL (65-175); Iron Binding Capacity,Total 349 ug/dL (250-450); PERCENT IRON SATURATION 88.3 % (15.0-55.0)
[2021-12-12 08:05] LABS: Vitamin B12 367 pg/mL (211-911)
== END 2021-12-10 23:59 | disposition short-term general hospital (02) ==
LOC: MFPLAB 08:06
PROVIDERS: PCP Family Medicine; Referring Provider Family Medicine; Visit Provider Family Medicine
DX: D64.9 Anemia, unspecified (principal); I25.10 Atherosclerotic heart disease of native coronary artery without angina pectoris
CPT/HCPCS: 36415; 80053; 80061; 82607; 82728; 83540; 83550; 85025

== ENCOUNTER → 2022-03-12 | Outpatient (CLI) | payer MEDICARE, SELFPAY ==
[2022-03-12 09:56] LABS: Absolute Lymphocyte Count 0.64 X10^3/uL (0.83-4.51); Absolute Neutrophil Count 3.1 X10^3/uL (2.0-7.7); Basophil# 0.03 X10^3/uL; Basophil% 0.7 % (0-1); Eosinophil# 0.09 X10^3/uL; Hematocrit 28.1 % (40-54); Hemoglobin 8.5 g/dL (13.0-16.5); Lymphocyte # 0.64 X10^3/ul (0.83-4.51); Lymphocyte % 14.5 % (19-41); Mean Corp Hgb Conc 30.2 g/dL (32-36); Mean Corpuscular Hgb 25.8 pg (27.0-32.0); Mean Corpuscular Volume 85.2 fL (80-94); Mean Platelet Vol. 10.1 fl (6.2-12.0); Monocyte# 0.54 X10^3/uL; Monocyte% 12.2 % (0-10); NRBC Flagged by Analyzer 0 % (0-5); Neutrophil # 3.11 X10^3/uL (2.7-7.7); Neutrophil % 70.4 % (47-70); Platelet Count 293 K/mm3 (150-450); RBC Distribution Width CV 15.1 % (11.6-14.6); RBC Distribution Width SD 46.9 fl (35.1-43.9); White Blood Count 4.4 K/mm3 (4.4-11.0)
[2022-03-12 10:24] LABS: ALB/GLOB Ratio 0.8 RATIO (0.9-2.4); AST(SGOT) 18 U/L (15-37); Alanine Aminotransfer ALT/SGPT 30 U/L (16-61); Albumin, Serum 3.1 g/dL (3.2-5.0); Alkaline Phosphatase 58 U/L (45-117); Anion Gap 10 (5-15); BUN 19 mg/dL (7-18); BUN/Creat Ratio 16.5 RATIO (10-20); Calcium,Total 8.1 mg/dL (8.5-10.1); Chloride 105 mmol/L (98-107); Cholesterol 109 mg/dL (200); Creatinine, Serum 1.15 mg/dL (0.70-1.30); EST Glomerular Filtration Rate 67 mL/min (>60); Est Glom Filt Rate - Afr Amer 81 mL/min (>60); Ferritin 16 ng/mL (26-388); Globulin 3.9 g/dL (2.2-4.2); Glucose 102 mg/dL (74-106); High Density Lipoprotein 35 mg/dL; Iron 19 ug/dL (65-175); Iron Binding Capacity,Total 423 ug/dL (250-450); Potassium 4.1 mmol/L (3.5-5.1); Sodium Level 136 mmol/L (136-145); Triglycerides 116 mg/dL; Very Low Density Lipoprotein 23 mg/dL (5-40)
== END | disposition home or self-care (01) ==
LOC: MFPLAB 08:10
PROVIDERS: PCP Family Medicine; Referring Provider Family Medicine; Visit Provider Family Medicine
DX: D50.9 Iron deficiency anemia, unspecified (principal); K21.9 Gastro-esophageal reflux disease without esophagitis; I25.10 Atherosclerotic heart disease of native coronary artery without angina pectoris
CPT/HCPCS: 36415; 80053; 80061; 82728; 83540; 83550; 85025

== ENCOUNTER → 2022-03-20 | Outpatient (CLI) | payer MEDICARE, SELFPAY | END | disposition home or self-care (01) | LOC: PSN 06:21 | PROVIDERS: PCP Family Medicine; Visit Provider Internal Medicine Gastroenterology | DX: Z20.822 Contact with and (suspected) exposure to COVID-19 (principal) | CPT/HCPCS: 87426; C9803 ==

== ENCOUNTER → 2022-04-02 | Outpatient (CLI) | payer MEDICARE, SELFPAY ==
--- NOTE | 2022-04-02 09:51 | ECHOD_ITS ---
Reason For Study: MURMUR Procedure This was a 2D Doppler, Color Flow transthoracic echocardiogram. Exam performed in department. Left Ventricle Normal LV size. The estimated ejection fraction is 55 %. Diastolic function is indeterminate. No regional wall motion abnormalities noted. Right Ventricle Normal RV size. Normal systolic function. Atria Normal left atrium. Normal right atrium. No doppler evidence for ASD. Mitral Valve There is no mitral valve stenosis. No mitral valve insufficiency. Tricuspid Valve There is no tricuspid stenosis. Trivial tricuspid valve insufficiency. Pulmonary artery systolic pressure is 35 mmHg. Aortic Valve Trisinus/trileaflet aortic valve. There is no aortic stenosis. Trivial aortic valve insufficiency. Pulmonic Valve There is no pulmonic valvular stenosis. Trivial pulmonic valve insufficiency. Great Vessels Normal aortic root. Pericardium/Pleural No pericardial effusion. MMode/2D Measurements & Calculations LVIDd: 4.5 cm IVSd: 1.2 cm LVOT diam: 2.0 cm LVIDs: 2.9 cm LVPWd: 1.2 cm LVOT area: 3.2 cm2 RVDd: 4.0 cm FS: 34.4 % Ao root diam: 3.3 cm LAV(MOD-bp): 57.9 ml LVAd ap4: 37.8 cm2 LAV(MOD-bp) Indexed: 25.8 ml/m2 LVLd ap4: 9.5 cm LAV(MOD-sp2): 55.4 ml EDV(MOD-sp4): 124.8 ml LAV(MOD-sp4): 53.8 ml EDV(sp4-el): 127.2 ml LVAs ap4: 21.1 cm2 LVLs ap4: 8.2 cm ESV(MOD-sp4): 45.8 ml ESV(sp4-el): 46.1 ml EF(MOD-sp4): 63.3 % EF(sp4-el): 63.7 % SV(MOD-sp4): 79.1 ml SV(sp4-el): 81.1 ml LA A4 area: 20.5 cm2 LA dimension(2D): 3.6 cm RA A4 area: 22.1 cm2 Time Measurements MV dec time: 0.17 sec Doppler Measurements & Calculations MV E max gurpreet: 108.8 cm/sec Lat Peak E' Gurpreet: 8.7 cm/sec Med Peak E' Gurpreet: 7.2 cm/sec MV A max gurpreet: 111.2 cm/sec E/E' lat: 12.5 E/E' med: 15.2 MV E/A: 0.98 Ao V2 max: 190.4 cm/sec AI max gurpreet: 336.5 cm/sec LV V1 max: 125.8 cm/sec Ao max P.5 mmHg AI max P.3 mmHg LV V1 max P.3 mmHg Ao V2 mean: 135.1 cm/sec Ao mean P.2 mmHg AI dec slope: 231.1 cm/sec2 Ao V2 VTI: 40.2 cm AI P1/2t: 426.4 msec KIMBERLY(V,D): 2.1 cm2 PA V2 max: 118.5 cm/sec PI end-d gurpreet: 83.7 cm/sec TR max gurpreet: 282.1 cm/sec TR max P.8 mmHg ECHO/Echo Complete Interpretation Summary The estimated ejection fraction is 55 %. Diastolic function is indeterminate. Trivial aortic valve insufficiency. Ordering Physician: Saleem Hearn Referring Physician: Saleem Hearn Performed By: Kaylan Gonzales RDCS
== END | disposition home or self-care (01) ==
LOC: CVS 09:50
PROVIDERS: PCP Family Medicine; Referring Provider Family Medicine; Visit Provider Family Medicine
DX: R01.1 Cardiac murmur, unspecified (principal)
CPT/HCPCS: 93306

== ENCOUNTER → 2022-04-16 | Outpatient (CLI) | payer MEDICARE, SELFPAY ==
[2022-04-16 10:05] LABS: Absolute Lymphocyte Count 0.61 X10^3/uL (0.83-4.51); Absolute Neutrophil Count 2.7 X10^3/uL (2.0-7.7); Basophil# 0.03 X10^3/uL; Basophil% 0.8 % (0-1); Eosinophil# 0.07 X10^3/uL; Eosinophils% 1.9 % (0-5); Hematocrit 40.2 % (40-54); Hemoglobin 12.4 g/dL (13.0-16.5); Lymphocyte # 0.61 X10^3/ul (0.83-4.51); Lymphocyte % 16.2 % (19-41); Mean Corp Hgb Conc 30.8 g/dL (32-36); Mean Corpuscular Hgb 27.7 pg (27.0-32.0); Mean Corpuscular Volume 89.9 fL (80-94); Mean Platelet Vol. 10.6 fl (6.2-12.0); Monocyte# 0.34 X10^3/uL; NRBC Flagged by Analyzer 0 % (0-5); Neutrophil % 71.6 % (47-70); POSITIVE MORPHOLOGY YES; Platelet Count 234 K/mm3 (150-450); RBC Distribution Width CV 19.9 % (11.6-14.6); RBC Distribution Width SD 65.4 fl (35.1-43.9); Red Blood Count 4.47 M/mm3 (4.6-6.2); White Blood Count 3.8 K/mm3 (4.4-11.0)
[2022-04-16 10:08] LABS: Differential Indicated SCAN CRITERIA MET
[2022-04-16 10:35] LABS: Anisocytosis RARE
[2022-04-16 11:01] LABS: Ferritin 47 ng/mL (26-388); Iron 94 ug/dL (65-175); Iron Binding Capacity,Total 360 ug/dL (250-450)
== END | disposition home or self-care (01) ==
LOC: MFPLAB 08:29
PROVIDERS: PCP Family Medicine; Visit Provider Family Medicine
DX: D50.9 Iron deficiency anemia, unspecified (principal)
CPT/HCPCS: 36415; 82728; 83540; 83550; 85025

== ENCOUNTER → 2022-04-23 | Outpatient (CLI) | payer MEDICARE, SELFPAY ==
[2022-04-23 11:09] LABS: PSA,Total- Diagnostic 3.02 ng/mL (0.0-4.0)
== END | disposition home or self-care (01) ==
LOC: LAB 09:07
PROVIDERS: PCP Family Medicine; Visit Provider Registered Nurse
DX: R97.20 Elevated prostate specific antigen [PSA] (principal)
CPT/HCPCS: 36415; 84153

== ENCOUNTER → 2022-05-27 | Outpatient (CLI) | payer MEDICARE, SELFPAY ==
[2022-05-27 10:31] LABS: Absolute Lymphocyte Count 0.77 X10^3/uL (0.83-4.51); Absolute Neutrophil Count 2.7 X10^3/uL (2.0-7.7); Basophil# 0.03 X10^3/uL; Basophil% 0.7 % (0-1); Eosinophil# 0.09 X10^3/uL; Eosinophils% 2.2 % (0-5); Hematocrit 41.7 % (40-54); Hemoglobin 13.4 g/dL (13.0-16.5); Lymphocyte # 0.77 X10^3/ul (0.83-4.51); Lymphocyte % 19.2 % (19-41); Mean Corp Hgb Conc 32.1 g/dL (32-36); Mean Corpuscular Hgb 28.5 pg (27.0-32.0); Mean Corpuscular Volume 88.7 fL (80-94); Monocyte# 0.42 X10^3/uL; Monocyte% 10.5 % (0-10); NRBC Flagged by Analyzer 0 % (0-5); Neutrophil # 2.69 X10^3/uL (2.7-7.7); Neutrophil % 67.2 % (47-70); Platelet Count 203 K/mm3 (150-450); RBC Distribution Width CV 17.8 % (11.6-14.6); RBC Distribution Width SD 58.1 fl (35.1-43.9)
[2022-05-27 10:41] LABS: Iron 87 ug/dL (65-175)
== END | disposition home or self-care (01) ==
LOC: MFPLAB 08:07
PROVIDERS: PCP Family Medicine; Referring Provider Family Medicine; Visit Provider Family Medicine
DX: I25.10 Atherosclerotic heart disease of native coronary artery without angina pectoris (principal)
CPT/HCPCS: 36415; 83540; 85025

== ENCOUNTER → 2022-07-10 | Outpatient (CLI) | payer MEDICARE, SELFPAY ==
[2022-07-10 10:21] LABS: Absolute Lymphocyte Count 0.82 X10^3/uL (0.83-4.51); Absolute Neutrophil Count 2.8 X10^3/uL (2.0-7.7); Basophil# 0.03 X10^3/uL; Basophil% 0.7 % (0-1); Eosinophil# 0.07 X10^3/uL; Eosinophils% 1.7 % (0-5); Hematocrit 38.7 % (40-54); Hemoglobin 12.6 g/dL (13.0-16.5); Lymphocyte # 0.82 X10^3/ul (0.83-4.51); Lymphocyte % 19.7 % (19-41); Mean Corp Hgb Conc 32.6 g/dL (32-36); Mean Corpuscular Hgb 29.6 pg (27.0-32.0); Mean Corpuscular Volume 91.1 fL (80-94); Mean Platelet Vol. 9.7 fl (6.2-12.0); Monocyte# 0.46 X10^3/uL; NRBC Flagged by Analyzer 0 % (0-5); Neutrophil # 2.78 X10^3/uL (2.7-7.7); Neutrophil % 66.7 % (47-70); Platelet Count 206 K/mm3 (150-450); RBC Distribution Width CV 14.5 % (11.6-14.6); RBC Distribution Width SD 46.9 fl (35.1-43.9); Red Blood Count 4.25 M/mm3 (4.6-6.2); White Blood Count 4.2 K/mm3 (4.4-11.0)
[2022-07-10 10:45] LABS: Hemoglobin A1c 5.7 % (3.8-5.6)
[2022-07-10 10:50] LABS: ALB/GLOB Ratio 0.9 RATIO (0.9-2.4); AST(SGOT) 19 U/L (15-37); Alanine Aminotransfer ALT/SGPT 33 U/L (16-61); Albumin, Serum 3.3 g/dL (3.2-5.0); Alkaline Phosphatase 75 U/L (45-117); Anion Gap 4 (5-15); BUN 24 mg/dL (7-18); BUN/Creat Ratio 24.4 RATIO (10-20); Calcium,Total 8.8 mg/dL (8.5-10.1); Chloride 105 mmol/L (98-107); Cholesterol 142 mg/dL (200); Creatinine, Serum 0.98 mg/dL (0.70-1.30); EST Glomerular Filtration Rate 80 mL/min (>60); Est Glom Filt Rate - Afr Amer 97 mL/min (>60); Ferritin 90 ng/mL (26-388); Globulin 3.8 g/dL (2.2-4.2); Glucose 99 mg/dL (74-106); High Density Lipoprotein 40 mg/dL; Iron 79 ug/dL (65-175); Iron Binding Capacity,Total 301 ug/dL (250-450); Potassium 3.8 mmol/L (3.5-5.1); Protein, Total 7.1 g/dL (6.4-8.2); Sodium Level 139 mmol/L (136-145); Triglycerides 169 mg/dL; Very Low Density Lipoprotein 34 mg/dL (5-40)
== END | disposition home or self-care (01) ==
LOC: MFPLAB 08:10
PROVIDERS: PCP Family Medicine; Referring Provider Family Medicine; Visit Provider Family Medicine
DX: D50.9 Iron deficiency anemia, unspecified (principal); I10 Essential (primary) hypertension; R73.09 Other abnormal glucose
CPT/HCPCS: 36415; 80053; 80061; 82728; 83036; 83540; 83550; 85025

== ENCOUNTER → 2022-10-14 | Outpatient (CLI) | payer MEDICARE, SELFPAY ==
[2022-10-14 08:35] LABS: PSA,Total- Diagnostic 4.27 ng/mL (0.0-4.0)
== END | disposition home or self-care (01) ==
LOC: LAB 07:12
PROVIDERS: PCP Family Medicine; Referring Provider Urology; Visit Provider Urology
DX: R97.20 Elevated prostate specific antigen [PSA] (principal)
CPT/HCPCS: 36415; 84153

== ENCOUNTER → 2022-11-11 | Outpatient (CLI) | payer MEDICARE, SELFPAY ==
[2022-11-11 10:28] LABS: Absolute Lymphocyte Count 0.79 X10^3/uL (0.83-4.51); Absolute Neutrophil Count 3.1 X10^3/uL (2.0-7.7); Basophil# 0.03 X10^3/uL; Basophil% 0.7 % (0-1); Eosinophil# 0.07 X10^3/uL; Eosinophils% 1.6 % (0-5); Hematocrit 41.2 % (40-54); Hemoglobin 13.8 g/dL (13.0-16.5); Lymphocyte # 0.79 X10^3/ul (0.83-4.51); Lymphocyte % 17.6 % (19-41); Mean Corp Hgb Conc 33.5 g/dL (32-36); Mean Corpuscular Hgb 31.2 pg (27.0-32.0); Mean Corpuscular Volume 93.2 fL (80-94); Mean Platelet Vol. 10.4 fl (6.2-12.0); Monocyte# 0.49 X10^3/uL; Monocyte% 10.9 % (0-10); NRBC Flagged by Analyzer 0 % (0-5); Platelet Count 194 K/mm3 (150-450); RBC Distribution Width CV 13.1 % (11.6-14.6); RBC Distribution Width SD 44.4 fl (35.1-43.9); Red Blood Count 4.42 M/mm3 (4.6-6.2); White Blood Count 4.5 K/mm3 (4.4-11.0)
[2022-11-11 10:51] LABS: Hemoglobin A1c 5.6 % (3.8-5.6)
[2022-11-11 11:06] LABS: ALB/GLOB Ratio 1.1 RATIO (0.9-2.4); AST(SGOT) 26 U/L (15-37); Alanine Aminotransfer ALT/SGPT 42 U/L (16-61); Albumin, Serum 3.5 g/dL (3.2-5.0); Alkaline Phosphatase 71 U/L (45-117); Anion Gap 8 (5-15); BUN 21 mg/dL (7-18); BUN/Creat Ratio 20.8 RATIO (10-20); Calcium,Total 8.7 mg/dL (8.5-10.1); Chloride 104 mmol/L (98-107); Cholesterol 167 mg/dL (200); Creatinine, Serum 1.01 mg/dL (0.70-1.30); EST Glomerular Filtration Rate 78 mL/min (>60); Est Glom Filt Rate - Afr Amer 94 mL/min (>60); Globulin 3.3 g/dL (2.2-4.2); Glucose 102 mg/dL (74-106); High Density Lipoprotein 40 mg/dL; Potassium 3.9 mmol/L (3.5-5.1); Protein, Total 6.8 g/dL (6.4-8.2); Sodium Level 140 mmol/L (136-145); Thyroid Stim Hormone (TSH) 2.71 uIU/mL (0.358-3.74); Triglycerides 155 mg/dL; Very Low Density Lipoprotein 31 mg/dL (5-40)
== END | disposition home or self-care (01) ==
LOC: MFPLAB 08:07
PROVIDERS: PCP Family Medicine; Referring Provider Family Medicine; Visit Provider Family Medicine
DX: I10 Essential (primary) hypertension (principal); R73.02 Impaired glucose tolerance (oral)
CPT/HCPCS: 36415; 80053; 80061; 83036; 84443; 85025

== ENCOUNTER → 2023-03-09 | Outpatient (CLI) | payer MEDICARE, SELFPAY ==
[2023-03-09 08:14] LABS: Bacteria 0 SEEN /hpf (None Seen); Mucous, Urine 0 SEEN /hpf (<or=2+); Red Blood Cells-Urine 0 SEEN /hpf (0-5); Squamous Epithelial Cells - UA 0 SEEN /hpf (0-5); White Blood Cells 0 SEEN /hpf (0-5)
[2023-03-09 09:55] LABS: Absolute Lymphocyte Count 0.71 X10^3/uL (0.83-4.51); Absolute Neutrophil Count 3.1 X10^3/uL (2.0-7.7); Basophil# 0.03 X10^3/uL; Basophil% 0.7 % (0-1); Eosinophils% 2.3 % (0-5); Hematocrit 38.6 % (40-54); Hemoglobin 12.4 g/dL (13.0-16.5); Lymphocyte # 0.71 X10^3/ul (0.83-4.51); Mean Corp Hgb Conc 32.1 g/dL (32-36); Mean Corpuscular Hgb 30.7 pg (27.0-32.0); Mean Corpuscular Volume 95.5 fL (80-94); Mean Platelet Vol. 10.4 fl (6.2-12.0); Monocyte# 0.45 X10^3/uL; Monocyte% 10.2 % (0-10); NRBC Flagged by Analyzer 0 % (0-5); Neutrophil # 3.13 X10^3/uL (2.7-7.7); Neutrophil % 70.6 % (47-70); Platelet Count 201 K/mm3 (150-450); RBC Distribution Width CV 13.1 % (11.6-14.6); RBC Distribution Width SD 45.9 fl (35.1-43.9); Red Blood Count 4.04 M/mm3 (4.6-6.2); White Blood Count 4.4 K/mm3 (4.4-11.0)
[2023-03-09 10:09] LABS: Hemoglobin A1c 5.4 % (3.8-5.6)
[2023-03-09 10:14] LABS: ALB/GLOB Ratio 0.9 RATIO (0.9-2.4); AST(SGOT) 27 U/L (15-37); Alanine Aminotransfer ALT/SGPT 40 U/L (16-61); Albumin, Serum 3.3 g/dL (3.2-5.0); Alkaline Phosphatase 66 U/L (45-117); Anion Gap 3 (5-15); BUN 18 mg/dL (7-18); BUN/Creat Ratio 17.8 RATIO (10-20); Calcium,Total 8.5 mg/dL (8.5-10.1); Chloride 109 mmol/L (98-107); Cholesterol 118 mg/dL (200); Creatinine, Serum 1.01 mg/dL (0.70-1.30); EST Glomerular Filtration Rate 78 mL/min (>60); Est Glom Filt Rate - Afr Amer 94 mL/min (>60); Globulin 3.5 g/dL (2.2-4.2); Glucose 104 mg/dL (74-106); High Density Lipoprotein 37 mg/dL; Potassium 3.9 mmol/L (3.5-5.1); Protein, Total 6.8 g/dL (6.4-8.2); Sodium Level 138 mmol/L (136-145); Triglycerides 116 mg/dL; Very Low Density Lipoprotein 23 mg/dL (5-40)
[2023-03-09 10:53] LABS: Color, Urine Yellow (Yellow); Glucose, Dipstick Normal (Normal); Ketone-Dipstick Negative (Negative); Leukocyte Esterase-Dipstick Negative /ul (Negative); Nitrite-Dipstick Negative (Negative); Occult Blood-Urine Negative /ul (Negative); Protein-Dipstick Negative (Negative); Urine Bilirubin Dipstick Negative (Negative); Urine Clarity Clear (Clear); Urine Urobilinogen 1 mg/dl (Normal)
[2023-03-09 17:09] LABS: Ferritin 44 ng/mL (26-388); Iron 50 ug/dL (65-175); Iron Binding Capacity,Total 346 ug/dL (250-450); PERCENT IRON SATURATION 14.5 % (15.0-55.0)
[2023-03-09 17:10] LABS: Vitamin B12 331 pg/mL (211-911)
[2023-03-11 05:07] LABS: Transferrin 261 mg/dL (177-329)
== END | disposition home or self-care (01) ==
LOC: MFPLAB 08:03
PROVIDERS: PCP Family Medicine; Referring Provider Family Medicine; Visit Provider Family Medicine
DX: D64.9 Anemia, unspecified (principal); I10 Essential (primary) hypertension; R73.02 Impaired glucose tolerance (oral)
CPT/HCPCS: 36415; 80053; 80061; 81001; 82607; 82728; 83036; 83540; 83550; 84466; 85025

== ENCOUNTER 2023-04-09 16:10 | Emergency (ER) | payer MEDICARE, SELFPAY ==
[2023-04-09 16:11] VITALS: BP 175/85; PULSE 83; RESP 16; TEMP 36; O2SAT 95; BMI 38.7
--- NOTE | 2023-04-09 16:13 | EKG12_ITS ---
Test Reason : CP Blood Pressure : / mmHG Vent. Rate : 080 BPM Atrial Rate : 080 BPM P-R Int : 152 ms QRS Dur : 068 ms QT Int : 388 ms P-R-T Axes : 033 -04 058 degrees QTc Int : 447 ms Poor data quality, interpretation may be adversely affected Sinus rhythm with Premature supraventricular complexes and with frequent Premature ventricular comple xes Otherwise normal ECG Confirmed by MAYA COTTON, TODD ([id number]), production editor SAMANTHA BECKFORD ([id number]) on 04/13/2023 10:13:59 AM Referred By: Confirmed By:TODD TREJO MD
--- NOTE | 2023-04-09 16:20 | RAD_ITS ---
INDICATION: Chest pain EXAMINATION/TECHNIQUE: X-RAY - XR Chest 1 View COMPARISON: 02/26/2021 FINDINGS: LINES/DEVICES: None. LUNGS: No consolidation, edema or effusion. No pneumothorax. MEDIASTINUM AND CARDIOVASCULAR STRUCTURES: Cardiac silhouette not enlarged. Central airways and mediastinal contour are unremarkable. RAD/Chest 1 View (Portable) IMPRESSION: No radiographic evidence of acute cardiopulmonary disease. Electronically Signed: Camilo Dennis MD at 16:36 EDT ,
[2023-04-09 16:27] LABS: Absolute Lymphocyte Count 0.72 X10^3/uL (0.83-4.51); Absolute Neutrophil Count 3.6 X10^3/uL (2.0-7.7); Basophil# 0.04 X10^3/uL; Basophil% 0.8 % (0-1); Eosinophil# 0.08 X10^3/uL; Eosinophils% 1.6 % (0-5); Hematocrit 41.1 % (40-54); Hemoglobin 13.3 g/dL (13.0-16.5); Lymphocyte # 0.72 X10^3/ul (0.83-4.51); Lymphocyte % 14.3 % (19-41); Mean Corp Hgb Conc 32.4 g/dL (32-36); Mean Corpuscular Hgb 30.4 pg (27.0-32.0); Mean Corpuscular Volume 93.8 fL (80-94); Mean Platelet Vol. 9.7 fl (6.2-12.0); Monocyte# 0.62 X10^3/uL; Monocyte% 12.3 % (0-10); NRBC Flagged by Analyzer 0 % (0-5); Neutrophil # 3.57 X10^3/uL (2.7-7.7); Neutrophil % 70.8 % (47-70); Platelet Count 214 K/mm3 (150-450); RBC Distribution Width CV 13.2 % (11.6-14.6); RBC Distribution Width SD 45.2 fl (35.1-43.9); Red Blood Count 4.38 M/mm3 (4.6-6.2)
[2023-04-09 16:43] LABS: Anion Gap 7 (5-15); BUN 22 mg/dL (7-18); BUN/Creat Ratio 20.8 RATIO (10-20); Calcium,Total 8.9 mg/dL (8.5-10.1); Chloride 102 mmol/L (98-107); Creatinine, Serum 1.06 mg/dL (0.70-1.30); EST Glomerular Filtration Rate 73 mL/min (>60); Est Glom Filt Rate - Afr Amer 89 mL/min (>60); Estimated Creatinine Clearance 62.74 ml/min; Glucose 96 mg/dL (74-106); Potassium 4.2 mmol/L (3.5-5.1); Sodium Level 136 mmol/L (136-145); Troponin-I HS (w/2H Reflex) 57 pg/mL (3.0-78.0)
--- NOTE | 2023-04-09 17:31 | ED.VIS.CHEST ---
HPI History of Present Illness Chief Complaint: Chest Pain Narrative Narrative: 72-year-old male past medical history of coronary artery disease with stenting, sees cardiology presents with chest pain that he had at 2:30 PM this afternoon. This was approximately 3 hours ago. He states that he was at the sports store walking around, and started not to feel well. He felt tightness in his chest, and his friend told him that he turned white. He felt very sweaty and diaphoretic and had to sit down. He felt tightness in his chest, all across the front but denies any back pain. He had to sit down. He may have been nauseated but did not vomit. This episode only lasted about 5 minutes. He felt improved, and went home. He told his that he may need a doctor's appointment early next week, but she called his primary care provider and they were told to report to the emergency department to get checked out. Patient feels improved. He denies any leg swelling, no new symptoms. 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 angina pectoris BPH (benign prostatic hyperplasia) Elevated PSA Essential (primary) hypertension GI bleed (02/2022) Hyperlipidemia Obesity Osteoarthritis Upper GI bleed (02/2022) Home Medications losartan 100 mg tablet 100 mg PO QHS BP 11/22/17 [History Last Taken 03/17/21] tamsulosin 0.4 mg capsule 0.4 mg PO QHS PROSTATE 11/22/17 [History Last Taken Unknown] hydrochlorothiazide 25 mg tablet 25 mg PO DAILY #90 tabs 10/06/19 [History Last Taken Unknown] acetaminophen 500 mg tablet 1,000 mg PO Q6H PRN #100 tabs 11/30/19 [Rx Last Taken Unknown] omeprazole 40 mg capsule,delayed release 40 mg PO DAILY 08/26/21 [History Last Taken Unknown] finasteride 5 mg tablet 5 mg PO DAILY 06/19/22 [History Last Taken Unknown] aspirin 81 mg tablet,delayed release (Adult Low Dose Aspirin) 81 mg PO QDAY #90 tabs 12/14/22 [Rx Last Taken Unknown] carvedilol 6.25 mg tablet (Coreg) 6.25 mg PO BID #60 tabs 12/23/22 [Rx Last Taken Unknown] rosuvastatin 20 mg tablet 20 mg PO DAILY 12/23/22 [History Last Taken Unknown] Allergy/AdvReac Type Severity Reaction Status Date / Time No Known Allergies Allergy Verified 12/23/22 08:38 Family History Mother Heart disease CAD (coronary artery disease) CABG age 70 Father Heart disease PPM Myocardial infarction, Onset Age: 49 CVA (cerebral vascular accident) Surgical History History of arthroscopy of both knees History of coronary artery stent placement (03/17/21) History of esophagogastroduodenoscopy (EGD) (03/2022) History of total knee arthroplasty (11/2019) Social History Smoking Status: Former smoker how long ago did patient quit smokin ROS ROS ED ROS Narrative Constitutional: No fever, no chills. Positive diaphoresis. HEENT: No sore throat. No neck pain. No loss of vision. No rhinorrhea. Cardiovascular: Positive chest pain. No palpitations. No pedal edema. Respiratory: No cough, mild shortness of breath. Abdominal: No abdominal pain. Mild nausea. No vomiting. Genitourinary: No dysuria. No hematuria. Musculoskeletal: No myalgias. No arthralgias. Neurologic: No headaches. No dizziness. No lightheadedness. Skin: No rash. No change in color. Psychiatric: No depression. No anxiety. EXAM Physical Exam Narrative Exam Narrative: Afebrile. Vital signs noted. HEENT: Normocephalic. Atraumatic. PERRL, EOMI. Neck soft and supple. No point tenderness or step off. Cardiovascular: Regular rate and rhythm with occasional extrasystoles. No murmurs, rubs, or gallops appreciated. Respiratory: No tachypnea. Lungs clear to auscultation bilaterally. Gastrointestinal: Abdomen soft, nontender, with normoactive bowel sounds. No rebound or guarding. Neurological: Awake. Alert. Nonfocal, nonlateralizing. Skin: No rash. Normal color. No pallor. Musculoskeletal: No pedal edema. Full range of motion extremities. Const Vital Signs: 04/09/23 16:11 04/09/23 17:36 04/09/23 17:38 Temperature 96.8 F L Temperature Source Temporal Pulse Rate 83 86 Respiratory Rate 16 16 Respiratory Effort Normal Non-Labored Blood Pressure 175/85 H 147/73 H Blood Pressure Mean 115 97 Pulse Ox 95 96 Oxygen Delivery Method Room Air Room Air 04/09/23 17:39 04/09/23 19:00 Temperature Temperature Source Pulse Rate 68 Respiratory Rate 18 Respiratory Effort Blood Pressure 145/67 H Blood Pressure Mean 93 Pulse Ox 96 96 Oxygen Delivery Method Room Air Room Air Heart Score History: Slightly/Non-Suspicious ECG: Normal Age: >/= 65 years Risk Factors: >/= 3 Risk Factors or History of CAD Troponin: </= Normal Limit Score: 4 MDM MDM MDM Narrative Medical decision making narrative: Chest pain work-up was pursued, orders entered per protocol including 2-hour troponin. I interpreted his EKG independently and is sinus rhythm with PVCs at 80 bpm without other ectopy or acute ST changes. No STEMI. I reviewed his prior ED visits and outpatient visits. He will be supplemented with oral aspirin. He is currently pain-free. I reviewed his initial laboratory work which shows WBC count of 5.0, hemoglobin normal at 13.3, platelet count normal at 214. BMP shows glucose appropriately elevated at 96 with a normal anion gap of 7, BUN of 22 and creatinine normal at 1.06, initial high-sensitivity troponin is 57, below upper range of normal. Repeat troponin is 58 for a delta less than 7. Chest x-ray interpreted by myself shows no evidence of an acute process, no pneumothorax or pneumonia. I reviewed the radiology report which confirms my independent interpretation. At this point in time, upon repeat examination, he is resting comfortably and has not had any chest pain. 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 I do not feel he requires observation, and patient and his would like to be discharged. Strict return instructions were reviewed. Disposition is discharged home in stable condition. History & Record Review Discussion w/independent historian: Patient and Family Additional record(s) reviewed:: Prior ED visit and Prior labs Lab Data Labs: Laboratory Results - last 24 hr 04/09/23 04/09/23 04/09/23 16:20 16:20 19:12 WBC 5.0 RBC 4.38 L Hgb 13.3 Hct 41.1 MCV 93.8 MCH 30.4 MCHC 32.4 RDW Std Deviation 45.2 H RDW Coeff of Berto 13.2 Plt Count 214 MPV 9.7 Immature Gran % (Auto) 0.200 Neut % (Auto) 70.8 H Lymph % (Auto) 14.3 L Weakley % (Auto) 12.3 H Eos % (Auto) 1.6 Baso % (Auto) 0.8 Absolute Neuts (auto) 3.6 Absolute Lymphs (auto) 0.72 L Nucleated RBC % 0 Sodium 136 Potassium 4.2 Chloride 102 Carbon Dioxide 27.0 Anion Gap 7 BUN 22 H Creatinine 1.06 Estim Creat Clear Calc 62.74 Est GFR (MDRD) Af Amer 89 Est GFR (MDRD) Non-Af 73 BUN/Creatinine Ratio 20.8 H Glucose 96 Calcium 8.9 Troponin I High Sens 57 58 Radiography Chest X-Ray - ED: Read by ED Physician Diagnostic Testing: Clinical Impression(s) from Imaging Studies Chest X-Ray 04/09/23 16:20 IMPRESSION: No radiographic evidence of acute cardiopulmonary disease. Electronically Signed: Camilo Dennis MD at 16:36 EDT Reading Location ID and State: [facility] / [place] Tel , Service support , Discharge Plan Triage Chief Complaint: Chest Pain ED Provider: Wilfrido Lassiter Dx/Rx/DC Orders Prescriptions: No Action tamsulosin 0.4 mg capsule,extended release 24hr 0.4 mg PO QHS losartan 100 mg tablet 100 mg PO QHS hydrochlorothiazide 25 mg tablet 25 mg PO DAILY Qty: 90 omeprazole 40 mg capsule,delayed release(DR/EC) 40 mg PO DAILY finasteride 5 mg tablet 5 mg PO DAILY rosuvastatin 20 mg tablet 20 mg PO DAILY carvedilol [Coreg] 6.25 mg tablet 6.25 mg PO BID Qty: 60 12RF Rx Instructions: must administer with a meal/food acetaminophen 500 MG tablet 1,000 mg PO Q6H PRN Qty: 100 1RF aspirin [Adult Low Dose Aspirin] 81 mg tablet,delayed release (DR/EC) 81 mg PO QDAY Qty: 90 4RF Primary Care Provider: Saleem Hearn Referrals: Saleem Hearn MD [Primary Care Provider] -
[2023-04-09 17:38] VITALS: BP 147/73; PULSE 86; RESP 16; O2SAT 96
[2023-04-09 17:39] VITALS: O2SAT 96
[2023-04-09] MEDS: Aspirin 81 MG TAB.CHEW 324 MG PO (17:46)
[2023-04-09 18:23] LABS: Reflex Troponin-HS? (from REC) Y
[2023-04-09 19:00] VITALS: BP 145/67; PULSE 68; RESP 18; O2SAT 96
[2023-04-09 19:34] LABS: Troponin-I HS 58 pg/mL (3.0-78.0)
[2023-04-09 19:57] VITALS: BP 128/80; PULSE 74; RESP 156; O2SAT 96
== END 2023-04-09 20:03 | disposition home or self-care (01) ==
PROVIDERS: Emergency Provider Emergency Medicine; PCP Family Medicine; Visit Provider Emergency Medicine
DX: R07.9 Chest pain, unspecified (principal); I25.10 Atherosclerotic heart disease of native coronary artery without angina pectoris; Z87.891 Personal history of nicotine dependence; Z95.5 Presence of coronary angioplasty implant and graft
CPT/HCPCS: 71045; 80048; 84484; 85025; 93005; 99285; A4216

== ENCOUNTER → 2023-04-13 | Outpatient (CLI) | payer MEDICARE, SELFPAY ==
[2023-04-13 17:42] LABS: Hematocrit 40.7 % (40-54); Hemoglobin 13.1 g/dL (13.0-16.5); Mean Corp Hgb Conc 32.2 g/dL (32-36); Mean Corpuscular Hgb 30.5 pg (27.0-32.0); Mean Corpuscular Volume 94.9 fL (80-94); Platelet Count 171 K/mm3 (150-450); RBC Distribution Width CV 13.8 % (11.6-14.6); RBC Distribution Width SD 48.4 fl (35.1-43.9); Red Blood Count 4.29 M/mm3 (4.6-6.2); White Blood Count 2.6 K/mm3 (4.4-11.0)
[2023-04-13 18:00] LABS: Vitamin D,25 Hydroxy 24.6 ng/mL
[2023-04-13 18:10] LABS: ALB/GLOB Ratio 0.9 RATIO (0.9-2.4); AST(SGOT) 56 U/L (15-37); Alanine Aminotransfer ALT/SGPT 69 U/L (16-61); Albumin, Serum 3.5 g/dL (3.2-5.0); Alkaline Phosphatase 93 U/L (45-117); Anion Gap 8 (5-15); BUN 20 mg/dL (7-18); BUN/Creat Ratio 16.9 RATIO (10-20); Calcium,Total 8.8 mg/dL (8.5-10.1); Chloride 99 mmol/L (98-107); Creatinine, Serum 1.18 mg/dL (0.70-1.30); EST Glomerular Filtration Rate 65 mL/min (>60); Est Glom Filt Rate - Afr Amer 78 mL/min (>60); Globulin 4.1 g/dL (2.2-4.2); Glucose 94 mg/dL (74-106); Potassium 4.1 mmol/L (3.5-5.1); Protein, Total 7.6 g/dL (6.4-8.2); Sodium Level 133 mmol/L (136-145); Thyroid Stim Hormone (TSH) 2.25 uIU/mL (0.358-3.74)
== END | disposition home or self-care (01) ==
LOC: MFPLAB 15:38
PROVIDERS: PCP Family Medicine; Visit Provider Nurse Practitioner Family
DX: D50.9 Iron deficiency anemia, unspecified (principal); I10 Essential (primary) hypertension; R53.83 Other fatigue
CPT/HCPCS: 36415; 80053; 82306; 84443; 85027

== ENCOUNTER → 2023-04-15 | Outpatient (CLI) | payer MEDICARE, SELFPAY ==
[2023-04-15 09:02] LABS: Absolute Neutrophil Count 2.8 X10^3/uL (2.0-7.7); Basophil# 0.03 X10^3/uL; Basophil% 0.8 % (0-1); Eosinophil# 0.05 X10^3/uL; Eosinophils% 1.3 % (0-5); Hemoglobin 12.9 g/dL (13.0-16.5); Lymphocyte % 12.9 % (19-41); Mean Corp Hgb Conc 33.1 g/dL (32-36); Mean Corpuscular Hgb 30.4 pg (27.0-32.0); Monocyte# 0.48 X10^3/uL; Monocyte% 12.4 % (0-10); NRBC Flagged by Analyzer 0 % (0-5); Neutrophil % 72.3 % (47-70); POSITIVE DIFFERENTIAL YES; Platelet Count 190 K/mm3 (150-450); RBC Distribution Width CV 13.7 % (11.6-14.6); RBC Distribution Width SD 46.2 fl (35.1-43.9); Red Blood Count 4.24 M/mm3 (4.6-6.2); White Blood Count 3.9 K/mm3 (4.4-11.0)
[2023-04-15 09:03] LABS: Differential Indicated SCAN CRITERIA MET
[2023-04-15 09:35] LABS: Vitamin B12 465 pg/mL (211-911)
[2023-04-15 09:44] LABS: Ferritin 183 ng/mL (26-388); Iron 48 ug/dL (65-175); Iron Binding Capacity,Total 287 ug/dL (250-450); PSA,Total- Diagnostic 2.28 ng/mL (0.0-4.0)
[2023-04-15 09:51] LABS: Differential Comment SCANNED
[2023-04-16 05:07] LABS: Transferrin 243 mg/dL (177-329)
[2023-04-16 13:58] LABS: Pathologist Review Reviewed
== END | disposition home or self-care (01) ==
LOC: LAB 08:28
PROVIDERS: PCP Family Medicine; Referring Provider Registered Nurse; Visit Provider Registered Nurse
DX: R97.20 Elevated prostate specific antigen [PSA] (principal); D50.9 Iron deficiency anemia, unspecified
CPT/HCPCS: 36415; 82607; 82728; 83540; 83550; 84153; 84466; 85025

== ENCOUNTER → 2023-07-01 | Outpatient (CLI) | payer MEDICARE, SELFPAY ==
[2023-07-01 11:03] LABS: AST(SGOT) 21 U/L (15-37); Alanine Aminotransfer ALT/SGPT 32 U/L (16-61); Albumin, Serum 3.2 g/dL (3.2-5.0); Alkaline Phosphatase 62 U/L (45-117); Anion Gap 5 (5-15); BUN 16 mg/dL (7-18); BUN/Creat Ratio 16.7 RATIO (10-20); Calcium,Total 8.7 mg/dL (8.5-10.1); Chloride 106 mmol/L (98-107); Creatinine, Serum 0.96 mg/dL (0.70-1.30); EST Glomerular Filtration Rate 82 mL/min (>60); Est Glom Filt Rate - Afr Amer 100 mL/min (>60); Globulin 3.3 g/dL (2.2-4.2); Glucose 100 mg/dL (74-106); Potassium 4.1 mmol/L (3.5-5.1); Protein, Total 6.5 g/dL (6.4-8.2); Sodium Level 140 mmol/L (136-145)
== END | disposition home or self-care (01) ==
LOC: MFPLAB 08:05
PROVIDERS: PCP Family Medicine; Visit Provider Family Medicine
DX: R74.8 Abnormal levels of other serum enzymes (principal)
CPT/HCPCS: 36415; 80053

== ENCOUNTER → 2023-07-29 | Outpatient (CLI) | payer MEDICARE, SELFPAY ==
[2023-07-29 15:57] LABS: Rheumatoid Factor < 10.0 IU/mL (<15)
[2023-07-29 16:05] LABS: Erythrocyte Sedimentation Rate 42 mm/hr (0-20)
[2023-08-02 13:07] LABS: ANTINUCLEAR ANTIBODIES DIRECT Negative (Negative)
== END | disposition home or self-care (01) ==
LOC: MTLAB 12:32
PROVIDERS: PCP Family Medicine; Visit Provider Family Medicine
DX: M79.89 Other specified soft tissue disorders (principal)
CPT/HCPCS: 36415; 85652; 86038; 86141; 86431

== ENCOUNTER → 2023-08-18 | Outpatient (CLI) | payer MEDICARE, SELFPAY | END | disposition home or self-care (01) | LOC: MTLAB 10:09 | PROVIDERS: PCP Family Medicine; Referring Provider Family Medicine; Visit Provider Family Medicine | DX: M79.89 Other specified soft tissue disorders (principal) | CPT/HCPCS: 36415; 84550 ==

== ENCOUNTER → 2023-09-10 | Outpatient (CLI) | payer MEDICARE, SELFPAY ==
[2023-09-10 10:09] LABS: Absolute Lymphocyte Count 0.71 X10^3/uL (0.83-4.51); Absolute Neutrophil Count 3.6 X10^3/uL (2.0-7.7); Basophil# 0.04 X10^3/uL; Basophil% 0.8 % (0-1); Eosinophil# 0.07 X10^3/uL; Eosinophils% 1.4 % (0-5); Hematocrit 37.9 % (40-54); Hemoglobin 12.2 g/dL (13.0-16.5); Lymphocyte # 0.71 X10^3/ul (0.83-4.51); Lymphocyte % 14.5 % (19-41); Mean Corp Hgb Conc 32.2 g/dL (32-36); Mean Corpuscular Hgb 30.6 pg (27.0-32.0); Mean Platelet Vol. 9.4 fl (6.2-12.0); Monocyte# 0.42 X10^3/uL; Monocyte% 8.6 % (0-10); NRBC Flagged by Analyzer 0 % (0-5); Neutrophil # 3.64 X10^3/uL (2.7-7.7); Neutrophil % 74.5 % (47-70); Platelet Count 183 K/mm3 (150-450); RBC Distribution Width CV 13.9 % (11.6-14.6); RBC Distribution Width SD 48.8 fl (35.1-43.9); Red Blood Count 3.99 M/mm3 (4.6-6.2); White Blood Count 4.9 K/mm3 (4.4-11.0)
[2023-09-10 10:41] LABS: ALB/GLOB Ratio 0.9 RATIO (0.9-2.4); AST(SGOT) 24 U/L (15-37); Alanine Aminotransfer ALT/SGPT 31 U/L (16-61); Alkaline Phosphatase 54 U/L (45-117); Anion Gap 7 (5-15); BUN 22 mg/dL (7-18); BUN/Creat Ratio 20.6 RATIO (10-20); Calcium,Total 8.8 mg/dL (8.5-10.1); Chloride 105 mmol/L (98-107); Cholesterol 129 mg/dL (200); Creatinine, Serum 1.07 mg/dL (0.70-1.30); EST Glomerular Filtration Rate 72 mL/min (>60); Est Glom Filt Rate - Afr Amer 88 mL/min (>60); Ferritin 173 ng/mL (26-388); Globulin 3.5 g/dL (2.2-4.2); Glucose 87 mg/dL (74-106); High Density Lipoprotein 34 mg/dL; Iron 83 ug/dL (65-175); Iron Binding Capacity,Total 314 ug/dL (250-450); Protein, Total 6.5 g/dL (6.4-8.2); Sodium Level 139 mmol/L (136-145); Triglycerides 167 mg/dL; Very Low Density Lipoprotein 33 mg/dL (5-40)
[2023-09-10 10:49] LABS: Hemoglobin A1c 5.6 % (3.8-5.6)
== END | disposition home or self-care (01) ==
LOC: MTLAB 07:06
PROVIDERS: PCP Family Medicine; Referring Provider Family Medicine; Visit Provider Family Medicine
DX: I10 Essential (primary) hypertension (principal); D50.9 Iron deficiency anemia, unspecified; M79.89 Other specified soft tissue disorders; R73.02 Impaired glucose tolerance (oral)
CPT/HCPCS: 36415; 80053; 80061; 82728; 83036; 83540; 83550; 84443; 85025

== ENCOUNTER → 2023-10-25 | Outpatient (CLI) | payer MEDICARE, SELFPAY ==
--- NOTE | 2023-10-25 13:12 | RAD_ITS ---
STUDY: X-RAY - BILATERAL HANDS REASON FOR EXAM: Male, 73 years old. Pain and swelling. TECHNIQUE - RIGHT HAND: 2 view(s) of the right hand were obtained. TECHNIQUE - LEFT HAND: 2 view(s) of the left hand were obtained. COMPARISON: None. FINDINGS - RIGHT HAND: Osteopenia. Mild arthrosis of the radiocarpal articulation. Normal radioulnar joint. Mild arthrosis of the radial carpal row of the wrist. Mild arthrosis of the first CMC joint. Moderate arthrosis of the MCP and IP joints. Normal soft tissues. FINDINGS - LEFT HAND: Osteopenia. Mild arthrosis of the radiocarpal articulation. Normal radioulnar joint. Mild arthrosis of the radial carpal row of the wrist. Moderate arthrosis of the first CMC joint with multiple small intra-articular osteochondral bodies. Moderate arthrosis of the MCP and IP joints. Normal soft tissues. RAD/Hand 2 Views IMPRESSION: Bilateral osteoarthrosis as described, most marked in the first CMC joint of the right hand. No acute abnormality or erosive changes. Electronically Signed: Justin Bernardo MD at 9:30 EST ,
== END | disposition home or self-care (01) ==
PROVIDERS: PCP Family Medicine; Referring Provider Internal Medicine Rheumatology; Visit Provider Internal Medicine Rheumatology
DX: M79.89 Other specified soft tissue disorders (principal)
CPT/HCPCS: 73120

== ENCOUNTER → 2023-11-17 | Outpatient (CLI) | payer MEDICARE, SELFPAY ==
--- OUTSIDE RECORDS SUMMARY | 2023-11-17 06:12 | XMS RPT_ITS | CCD ---
Author Name Unknown Address [address] [place] [address] Organization [facility] Care Team Providers Care Apparel Machinery Instructor Name Role Phone Chula Wilks N Unavailable WilksChula escobar Subha Unavailable Lashaun Chula N Unavailable Heber Singer Unavailable Chula Wilks N Unavailable WilksChula escobar N Unavailable Medications Completed/Discontinued Medications Medication Drug Class(es) Dates Sig (Normalized) Sig (Original) losartan potassium 100 mg oral tablet (6 sources) Angiotensin 2 Receptor Robert Start: 03-29-2017 LOSARTAN POTASSIUM 100 MG TABS LOSARTAN POTASSIUM [id number] Heber Singer Drug Treatment Unknown - unknown (1 source) No information available. pravastatin sodium 40 mg oral tablet (6 sources) HMG-CoA Reductase Inhibitor Start: 03-29-2017 PRAVACHOL 40 MG TABS PRAVASTATIN SODIUM [id number] Heber Singer tamsulosin hydrochloride 0.4 mg oral capsule (6 sources) alpha-Adrenergic Robert Start: 03-29-2017 TAMSULOSIN HCL 0.4 MG CAPS TAMSULOSIN HCL [id number] Heber Singer Problems Active Problems Problem Classification Problem Date Documented Date Episodic/Chronic Joint disorders and dislocations; trauma-related (6 sources) Loose body in knee, right knee; Translations: [Loose body in knee, right knee] Onset: 03-29-2017 04-12-2017 Chronic Osteoarthritis (6 sources) Osteoarthritis of knee; Translations: [Bilateral primary osteoarthritis of knee] Onset: 03-29-2017 04-12-2017 Chronic Unclassified (1 source) No current problems or disability 03-31-2017 Past or Other Problems Problem Classification Problem Date Documented Da te Episodic/Chronic Other connective tissue disease (6 sources) Calcific tendinitis; Translations: [Calcific tendinitis, right lower leg] Onset: 03-29-2017 04-12-2017 Episodic Other non-traumatic joint disorders (6 sources) Knee pain; Translations: [Pain in unspecified knee] Onset: 03-29-2017 03-29-2017 Episodic Results Test Name Value Interpretation Reference Range Facil ity Vital Signs Date Time Vital Sign Value Performing Clinician Ralph coelho 03-29-2017 09:40-0400 BMI (Body Mass Index) 33.22 kg/m2 [facility] Work Phone: 03-29-2017 09:40-0400 Body weight 102.06 kg Chula Wilks [facility] Work Phone: 03-29-2017 09:40-04[address] [facility] Work Phone: 03-29-2017 09:40-0400 [facility] Work Phone: Procedures Date Procedure Procedure Detail Performing Clinician Start: 08-26-2017 End: 08-29-2017 Arthrocentesis aspir&/inj major jt/bursa w/o us Heber Singer Work Phone: Start: 03-29-2017 End: 04-12-2017 Arthrocentesis aspir&/inj major jt/bursa w/o us Heber Singer Work Phone: Start: 03-29-2017 End: 03-29-2017 Documentation of current medications Chula Wilks Start: 03-29-2017 End: 04-12-2017 Drain/inject, joint/bursa Heber Singer Work Phone: Plan of Treatment Date Care Activity Detail Author Start: 08-20-2017 End: 08-20-2017 Appointment Appointment [facility] Work Phone: Start: 03-29-2017 End: 03-29-2017 Radiologic exam knee complete 4/more views X-Ray, Knee [facility] Work Phone: Start: 03-29-2017 End: 03-29-2017 X-ray exam, knee, 4 or more X-Ray, Knee [facility] Work Phone: Additional Source Comments FOR RECORDS PERTAINING TO PATIENTS WHO ARE OR HAVE BEEN ENROLLED IN A CHEMICAL DEPENDENCY/SUBSTANCEABUSE PROGRAM, SOME INFORMATION MAY BE OMITTED. This clinical summary was aggregated from multiple sources. Caution should be exercised in using it in the provision of clinical care. This summary normalizes information from multiple sources, and as a consequence, information in this document may materially change the coding, format and clinical context of patient data. In addition, data may be omitted in some cases. CLINICAL DECISIONS SHOULD BE BASED ON THE PRIMARY CLINICAL RECORDS. [facility]. provides no warranty or guarantee of the accuracy or completeness of information in this document.
--- NOTE | 2023-11-17 08:48 | STRESSREP ---
Stress Test Report Exercise myocardial perfusion stress test. 73-year-old man with a history of coronary artery disease and dyspnea on exertion status post PCI of the right coronary artery with an occluded circumflex artery. Stress protocol: Resting EKG demonstrates normal sinus rhythm with a rate of 86 bpm resting blood pressure is 148/72 mmHg. occasional premature ventricular complexes are noted. The patient exercised according to the regular Marco A protocol for a total duration of 5 minutes attaining a maximum heart rate of 129 bpm which was 86% of maximum predicted heart rate; the maximum workload was 7 metabolic equivalents. At rest there were no ST or T wave changes noted to suggest ischemia and at peak exercise upsloping ST changes only were noted which did not meet the criteria for ischemia. No clinical angina was noted the test was terminated due to the target heart rate being achieved/fatigue. The peak blood pressure was 190/74 mmHg. Rate-pressure product was 23,900. Myocardial perfusion protocol. 14.2 mCi of technetium 99m sestamibi was injected at rest. The patient exercised according to regular Marco A protocol for total duration of 5 minutes and at peak exercise 44.4 mCi of technetium 99m sestamibi was injected stress images were obtained stress and rest images were reconstructed in comparing the short axis vertical long and horizontal long axis. Gated images were also obtained. Perfusion SPECT analysis: Review of the stress images demonstrate normal uptake of tracer noted in all areas of the myocardium except for a medium size defect involving the anterolateral wall extending to the inferior lateral segment. The resting images similarly demonstrate normal uptake of tracer noted in all areas of the myocardium with a defect in the anterolateral wall with minimal improvement around the edges suggesting a previous extensive anterolateral infarct with minimal kofi-infarct ischemia. Gated SPECT analysis: The gated ejection fraction is 69%. Conclusion: Mildly abnormal exercise myocardial perfusion stress test at a moderate workload, with previous anterolateral infarct with minimal kofi-infarct ischemia present. Exercise capacity is reduced compared to previous. Preserved ejection fraction.
== END | disposition home or self-care (01) ==
LOC: CVS 06:00
PROVIDERS: PCP Family Medicine; Referring Provider Family Medicine; Visit Provider Family Medicine
DX: R06.02 Shortness of breath (principal); I25.10 Atherosclerotic heart disease of native coronary artery without angina pectoris; I10 Essential (primary) hypertension; E78.5 Hyperlipidemia, unspecified; E66.9 Obesity, unspecified; R73.02 Impaired glucose tolerance (oral); G47.33 Obstructive sleep apnea (adult) (pediatric)
CPT/HCPCS: 78452; 93017; A9500; A4216

== ENCOUNTER → 2023-11-25 | Outpatient (CLI) | payer MEDICARE, SELFPAY ==
--- NOTE | 2023-11-25 11:30 | RAD_ITS ---
STUDY: X-RAY CHEST REASON FOR EXAM: Male, 73 years old. Chest pain/pressure TECHNIQUE: PA and lateral views of the chest. COMPARISON: 04/09/2023 FINDINGS: The lungs are clear and expanded. There is no demonstrated pleural abnormality. Normal size heart. Normal mediastinum and carlin. Normal visualized pulmonary arteries. There is atherosclerotic calcification of the aortic arch with tortuosity. There are diffuse degenerative changes of the visualized thoracic spine. Normal visualized ribs, clavicles, and shoulders. There is no demonstrated abnormality of the visualized soft tissue structures of the upper abdomen. RAD/Chest PA and Lateral IMPRESSION: No acute pulmonary process Electronically Signed: Max Guerrero MD at 16:57 EST ,
[2023-11-25 12:19] LABS: Absolute Lymphocyte Count 1.08 X10^3/uL (0.83-4.51); Absolute Neutrophil Count 3.3 X10^3/uL (2.0-7.7); Basophil# 0.05 X10^3/uL; Eosinophil# 0.16 X10^3/uL; Eosinophils% 3.2 % (0-5); Hematocrit 39.9 % (40-54); Hemoglobin 13.3 g/dL (13.0-16.5); Lymphocyte # 1.08 X10^3/ul (0.83-4.51); Lymphocyte % 21.3 % (19-41); Mean Corp Hgb Conc 33.3 g/dL (32-36); Mean Corpuscular Hgb 30.6 pg (27.0-32.0); Mean Corpuscular Volume 91.9 fL (80-94); Mean Platelet Vol. 9.7 fl (6.2-12.0); Monocyte# 0.48 X10^3/uL; Monocyte% 9.5 % (0-10); NRBC Flagged by Analyzer 0 % (0-5); Neutrophil # 3.28 X10^3/uL (2.7-7.7); Neutrophil % 64.6 % (47-70); Platelet Count 230 K/mm3 (150-450); RBC Distribution Width CV 12.5 % (11.6-14.6); RBC Distribution Width SD 41.8 fl (35.1-43.9); Red Blood Count 4.34 M/mm3 (4.6-6.2); White Blood Count 5.1 K/mm3 (4.4-11.0)
[2023-11-25 12:26] LABS: Prothrombin Time (Protime)PT. 12.9 SECONDS (11.7-14.9)
[2023-11-25 12:27] LABS: Partial Thromboplast Time 29.5 Seconds (24.1-36.2)
[2023-11-25 13:08] LABS: Anion Gap 6 (5-15); BUN 21 mg/dL (7-18); BUN/Creat Ratio 16.8 RATIO (10-20); Calcium,Total 9.2 mg/dL (8.5-10.1); Chloride 107 mmol/L (98-107); Creatinine, Serum 1.25 mg/dL (0.70-1.30); EST Glomerular Filtration Rate 61 mL/min (>60); Est Glom Filt Rate - Afr Amer 73 mL/min (>60); Glucose 98 mg/dL (74-106); Potassium 4.1 mmol/L (3.5-5.1); Sodium Level 138 mmol/L (136-145)
== END | disposition home or self-care (01) ==
LOC: RAD 11:27
PROVIDERS: PCP Family Medicine; Referring Provider Physician Assistant Medical; Visit Provider Physician Assistant Medical
DX: R06.09 Other forms of dyspnea (principal); R94.39 Abnormal result of other cardiovascular function study; I25.10 Atherosclerotic heart disease of native coronary artery without angina pectoris; I10 Essential (primary) hypertension; E78.5 Hyperlipidemia, unspecified; E66.9 Obesity, unspecified; K92.2 Gastrointestinal hemorrhage, unspecified; Z95.5 Presence of coronary angioplasty implant and graft
CPT/HCPCS: 36415; 71046; 80048; 85025; 85610; 85730

== ENCOUNTER 2023-12-07 06:51 | Day surgery (SDC) | payer MEDICARE, SELFPAY ==
[2023-12-06 07:55] VITALS: BMI 39.6
--- OUTSIDE RECORDS SUMMARY | 2023-12-07 06:54 | XMS RPT_ITS | CCD ---
Author Name Unknown Address [address] [place] [address] Organization [facility] Care Team Providers Care Coffin Maker Name Role Phone Chula Wilks N Unavailable WilksChula escobar Subha Unavailable Lashaun Chula N Unavailable Heber Singer Unavailable Chula Wilks N Unavailable WilksChula escobar N Unavailable Medications Completed/Discontinued Medications Medication Drug Class(es) Dates Sig (Normalized) Sig (Original) losartan potassium 100 mg oral tablet (6 sources) Angiotensin 2 Receptor Robert Start: 03-29-2017 LOSARTAN POTASSIUM 100 MG TABS LOSARTAN POTASSIUM [id number] Heber Singer Drug Treatment Unknown - unknown (1 source) No information available. pravastatin sodium 40 mg oral tablet (6 sources) HMG-CoA Reductase Inhibitor Start: 03-29-2017 PRAVACHOL 40 MG TABS PRAVASTATIN SODIUM [id number] Heber Singer tamsulosin hydrochloride 0.4 mg oral capsule (6 sources) alpha-Adrenergic Robert Start: 03-29-2017 TAMSULOSIN HCL 0.4 MG CAPS TAMSULOSIN HCL [id number] Heber Singer Problems Active Problems Problem Classification [...] 09:40-0400 BMI (Body Mass Index) 33.22 kg/m2 [facility] Work Phone: 03-29-2017 09:40-0400 Body weight 102.06 kg Chula Wilks [facility] Work Phone: 03-29-2017 09:40-0400 Height 175.26 cm Chula [facility] Work Phone: 03-29-2017 09:40-0400 [facility] Work Phone: Procedures [...] Author Start: 08-20-2017 End: 08-20-2017 Appointment Appointment [facility] Work Phone: Start: 03-29-2017 End: 03-29-2017 Radiologic exam knee complete 4/more views X-Ray, Knee [facility] Work Phone: Start: 03-29-2017 End: 03-29-2017 X-ray exam, knee, 4 or more X-Ray, Knee [facility] Work Phone: Additional [...] BE BASED ON THE PRIMARY CLINICAL RECORDS. [facility]. provides no warranty or guarantee of the accuracy or completeness of information in this document.
--- NOTE | 2023-12-07 09:10 | CL.D_ITS ---
Patient Name: ERICA HORTON Study Date: 12/07/2023 Performing: Luis Miguel Bunch MD Ht: 68 inches 172.72 cm : 1950 Wt: 261.01 lbs 118.39 kg Age: 73 Gender: male BSA: 2.29 PROCEDURE(S) PERFORMED [id number])LHC/COR/LV CLINICAL PROFILE AND INDICATIONS Indications: Suspected CAD Heart Failure: None Stress/Imaging Date: 11/18/23Stress Test with SPECT MPI: Positive Intermediate Risk CAD Presentations: Stable angina. CONCLUSIONS Totally occluded first obtuse marginal branch with a large vessel. Unclear whether this is chronic or subacute. Patent right coronary artery and LAD with mild disease and preserved ejection fraction. RECOMMENDATIONS Medical therapy DESCRIPTION OF PROCEDURE The patient arrived to the procedure lab. The risks and benefits of the procedure as well as a full description of our services here and current unavailability of surgical backup were fully explained to the patient and/or their significant other prior to the catheterization. The Timeout was completed, verifying the correct patient and procedure. The patient's procedural site was prepped and draped in the usual fashion. Local anesthetic was given subcutaneously to right radial region with Lidocaine 2%. Using a modified Seldinger technique, arterial access was obtained via the right radial artery, a 6Fr sheath was inserted. Right Coronary Artery selective angiography was then performed in multiple views using a 5 Fr. 4.0 Baker catheter. Left Coronary Artery selective angiography was performed in multiple views using a 5 Fr. JL3.5 catheter. Left Ventriculography was performed in HAND projection using a 5 Fr. Pigtail catheter. LV to AO pullback pressures were then recorded.The arterial sheath was pulled and a TR Band was applied for hemostasis w/ 12ml air CORONARY ANGIOGRAPHY DOMINANCE: Right Dominant LEFT HEART ASSESSMENT Left Ventricular Ejection Fraction: by LV Gram 60 % Normal LV wall motion Normal Left Ventricular systolic function LEFT MAIN: Angiographically normal LEFT ANTERIOR DESCENDING ARTERY: This vessel is a medium size vessel with the first diagonal branch with no significant disease and mild to moderate disease noted in the midsegment and distal mild luminal irregularities. CIRCUMFLEX ARTERY: Nondominant but large vessel with the first obtuse marginal branch which is totally occluded in the proximal to mid segment in the proximal circumflex artery which is 60% stenosis in the vessel continuing with mild luminal irregularities present RIGHT CORONARY ARTERY: Previously stented vessel in the proximal section with an ectatic region in the midsegment and then the vessel tapering distally but with no high-grade obstruction noted. COMPLICATIONS No Complications PROCEDURE MEDICATIONS Versed 1 mg IV Fentanyl 50 mcg IV Oxygen: 2 L/min via nasal cannula Heparin given IA 12/07/2023 08:23:54 Verapamil 2.5mg, Ntg 200mcgs, 2000 units of Heparin given IA 12/07/2023 08:23:54 SUMMARY OF HEMODYNAMIC DATA Time AIR REST Art 114/60 (76) 08:28:41 AO 117/68 (91) SA 08:36:13 LV 124/10, 16 08:48:14 LV 119/10, 16 08:48:20 LV 111/5, 13 08:49:01 LV 104/6, 17 08:49:07 LVp 100/10, 20 08:49:17 AOp 110/60 (81) 08:49:22 AIR REST 09:09:18 AIR REST ECG 09:09:18 Signed By Luis Miguel Bunch MD On 12/07/2023 09:09:53 Luis Miguel Bunch MD
== END 2023-12-07 10:25 | disposition home or self-care (01) ==
LOC: CLSP 06:52
PROVIDERS: PCP Family Medicine; Referring Provider Internal Medicine Cardiovascular Disease; Visit Provider Internal Medicine Cardiovascular Disease
DX: I25.118 Atherosclerotic heart disease of native coronary artery with other forms of angina pectoris (principal); E66.9 Obesity, unspecified; I10 Essential (primary) hypertension; N40.0 Benign prostatic hyperplasia without lower urinary tract symptoms; Z95.5 Presence of coronary angioplasty implant and graft; Z79.899 Other long term (current) drug therapy; Z79.82 Long term (current) use of aspirin; Z87.891 Personal history of nicotine dependence
CPT/HCPCS: 93458; 99152; 99153; J7040; Q9967; C1769; C1894

== ENCOUNTER → 2024-01-18 | Outpatient (CLI) | payer MEDICARE, SELFPAY ==
--- OUTSIDE RECORDS SUMMARY | 2024-01-18 08:22 | XMS RPT_ITS | CCD ---
Author Name Unknown Address [address] [place] [address] Organization [facility] Care Team Providers Care Road Machine Operator Name Role Phone Chula Wilks N Unavailable WilksChula escobar Subha Unavailable Lashaun Chula N Unavailable Heber Singer Unavailable Chula Wilks N Unavailable WilksChula escobar N Unavailable Medications Completed/Discontinued Medications Medication Drug Class(es) Dates Sig (Normalized) Sig (Original) losartan potassium 100 mg oral tablet (6 sources) Angiotensin 2 Receptor Robert Start: 03-29-2017 LOSARTAN POTASSIUM 100 MG TABS LOSARTAN POTASSIUM [id number] Heber Singer Drug Treatment Unknown - unknown (1 source) No information available. pravastatin sodium 40 mg oral tablet (6 sources) HMG-CoA Reductase Inhibitor Start: 03-29-2017 PRAVACHOL 40 MG TABS PRAVASTATIN SODIUM [id number] Heber Singer tamsulosin hydrochloride 0.4 mg oral capsule (6 sources) alpha-Adrenergic Robert Start: 03-29-2017 TAMSULOSIN HCL 0.4 MG CAPS TAMSULOSIN HCL [id number] Heber Singer Problems Active Problems Problem Classification [...] 09:40-0400 BMI (Body Mass Index) 33.22 kg/m2 [facility] Work Phone: 03-29-2017 09:40-0400 Body weight 102.06 kg Chula [facility] Work Phone: 03-29-2017 09:40-0400 Height 175.26 cm [facility] Work Phone: 03-29-2017 09:40-0400 [facility] 102.[facility] Work Phone: [...] Author Start: 08-20-2017 End: 08-20-2017 Appointment Appointment [facility] Work Phone: Start: 03-29-2017 End: 03-29-2017 Radiologic exam knee complete 4/more views X-Ray, Knee [facility] Work Phone: Start: 03-29-2017 End: 03-29-2017 X-ray exam, knee, 4 or more X-Ray, Knee [facility] Work [...] BE BASED ON THE PRIMARY CLINICAL RECORDS. [facility] [employer] [facility]. provides no warranty or guarantee of the accuracy or completeness of information in this document.
[2024-01-18 10:24] LABS: Absolute Lymphocyte Count 0.63 X10^3/uL (0.83-4.51); Absolute Neutrophil Count 3.3 X10^3/uL (2.0-7.7); Basophil# 0.04 X10^3/uL; Basophil% 0.9 % (0-1); Eosinophil# 0.05 X10^3/uL; Eosinophils% 1.1 % (0-5); Hematocrit 38.8 % (40-54); Hemoglobin 12.6 g/dL (13.0-16.5); Lymphocyte # 0.63 X10^3/ul (0.83-4.51); Lymphocyte % 13.9 % (19-41); Mean Corp Hgb Conc 32.5 g/dL (32-36); Mean Corpuscular Hgb 29.6 pg (27.0-32.0); Mean Corpuscular Volume 91.3 fL (80-94); Mean Platelet Vol. 9.9 fl (6.2-12.0); Monocyte# 0.51 X10^3/uL; Monocyte% 11.3 % (0-10); NRBC Flagged by Analyzer 0 % (0-5); Neutrophil # 3.27 X10^3/uL (2.7-7.7); Neutrophil % 72.4 % (47-70); Platelet Count 198 K/mm3 (150-450); RBC Distribution Width CV 12.8 % (11.6-14.6); RBC Distribution Width SD 42.3 fl (35.1-43.9); Red Blood Count 4.25 M/mm3 (4.6-6.2); White Blood Count 4.5 K/mm3 (4.4-11.0)
[2024-01-18 10:46] LABS: Hemoglobin A1c 5.6 % (3.8-5.6)
[2024-01-18 11:00] LABS: ALB/GLOB Ratio 0.9 RATIO (0.9-2.4); AST(SGOT) 17 U/L (15-37); Alanine Aminotransfer ALT/SGPT 19 U/L (16-61); Albumin, Serum 3.4 g/dL (3.2-5.0); Alkaline Phosphatase 63 U/L (45-117); Anion Gap 7 (5-15); BUN 15 mg/dL (7-18); Calcium,Total 8.7 mg/dL (8.5-10.1); Chloride 106 mmol/L (98-107); Cholesterol 119 mg/dL (200); EST Glomerular Filtration Rate 78 mL/min (>60); Est Glom Filt Rate - Afr Amer 95 mL/min (>60); Ferritin 131 ng/mL (26-388); Globulin 3.7 g/dL (2.2-4.2); Glucose 103 mg/dL (74-106); High Density Lipoprotein 40 mg/dL; Iron 60 ug/dL (65-175); Iron Binding Capacity,Total 281 ug/dL (250-450); Potassium 3.6 mmol/L (3.5-5.1); Protein, Total 7.1 g/dL (6.4-8.2); Sodium Level 139 mmol/L (136-145); Triglycerides 101 mg/dL; Very Low Density Lipoprotein 20 mg/dL (5-40)
== END | disposition home or self-care (01) ==
LOC: MFPLAB 08:01
PROVIDERS: PCP Family Medicine; Visit Provider Family Medicine
DX: I10 Essential (primary) hypertension (principal); D50.9 Iron deficiency anemia, unspecified; R73.02 Impaired glucose tolerance (oral)
CPT/HCPCS: 36415; 80053; 80061; 82728; 83036; 83540; 83550; 85025

== ENCOUNTER → 2024-07-20 | Outpatient (CLI) | payer MEDICARE, SELFPAY ==
[2024-07-20 10:19] LABS: Absolute Lymphocyte Count 0.77 X10^3/uL (0.83-4.51); Absolute Neutrophil Count 2.7 X10^3/uL (2.0-7.7); Basophil# 0.05 X10^3/uL; Basophil% 1.2 % (0-1); Eosinophil# 0.12 X10^3/uL; Eosinophils% 2.9 % (0-5); Hemoglobin 11.9 g/dL (13.0-16.5); Lymphocyte # 0.77 X10^3/ul (0.83-4.51); Lymphocyte % 18.6 % (19-41); Mean Corp Hgb Conc 32.2 g/dL (32-36); Mean Corpuscular Hgb 30.1 pg (27.0-32.0); Mean Corpuscular Volume 93.7 fL (80-94); Mean Platelet Vol. 10.2 fl (6.2-12.0); Monocyte# 0.46 X10^3/uL; Monocyte% 11.1 % (0-10); NRBC Flagged by Analyzer 0 % (0-5); Neutrophil # 2.72 X10^3/uL (2.7-7.7); Platelet Count 201 K/mm3 (150-450); RBC Distribution Width CV 13.1 % (11.6-14.6); RBC Distribution Width SD 44.3 fl (35.1-43.9); Red Blood Count 3.95 M/mm3 (4.6-6.2); White Blood Count 4.1 K/mm3 (4.4-11.0)
[2024-07-20 11:04] LABS: ALB/GLOB Ratio 0.9 RATIO (0.9-2.4); AST(SGOT) 24 U/L (15-37); Alanine Aminotransfer ALT/SGPT 29 U/L (16-61); Albumin, Serum 3.3 g/dL (3.2-5.0); Alkaline Phosphatase 62 U/L (45-117); Anion Gap 5 (5-15); BUN 17 mg/dL (7-18); BUN/Creat Ratio 16.3 RATIO (10-20); Calcium,Total 8.9 mg/dL (8.5-10.1); Chloride 107 mmol/L (98-107); Cholesterol 128 mg/dL (200); Creatinine, Serum 1.04 mg/dL (0.70-1.30); EST Glomerular Filtration Rate 75 mL/min (>60); Est Glom Filt Rate - Afr Amer 90 mL/min (>60); Globulin 3.6 g/dL (2.2-4.2); Glucose 101 mg/dL (74-106); High Density Lipoprotein 45 mg/dL; Potassium 3.8 mmol/L (3.5-5.1); Protein, Total 6.9 g/dL (6.4-8.2); Sodium Level 138 mmol/L (136-145); Triglycerides 136 mg/dL; Very Low Density Lipoprotein 27 mg/dL (5-40)
== END | disposition home or self-care (01) ==
LOC: MFPLAB 08:03
PROVIDERS: PCP Family Medicine; Visit Provider Family Medicine
DX: Z00.00 Encounter for general adult medical examination without abnormal findings (principal)
CPT/HCPCS: 36415; 80053; 80061; 85025

== ENCOUNTER → 2024-11-16 | Outpatient (CLI) | payer MEDICARE, SELFPAY ==
[2024-11-16 10:22] LABS: Absolute Lymphocyte Count 1.17 X10^3/uL (0.83-4.51); Absolute Neutrophil Count 2.2 X10^3/uL (2.0-7.7); Basophil# 0.04 X10^3/uL; Eosinophil# 0.15 X10^3/uL; Eosinophils% 3.7 % (0-5); Hematocrit 38.6 % (40-54); Hemoglobin 12.9 g/dL (13.0-16.5); Lymphocyte # 1.17 X10^3/ul (0.83-4.51); Lymphocyte % 28.9 % (19-41); Mean Corp Hgb Conc 33.4 g/dL (32-36); Mean Corpuscular Hgb 31.1 pg (27.0-32.0); Mean Platelet Vol. 10.3 fl (6.2-12.0); Monocyte% 12.3 % (0-10); NRBC Flagged by Analyzer 0 % (0-5); Neutrophil # 2.18 X10^3/uL (2.7-7.7); Neutrophil % 53.9 % (47-70); Platelet Count 185 K/mm3 (150-450); RBC Distribution Width CV 13.1 % (11.6-14.6); RBC Distribution Width SD 44.3 fl (35.1-43.9); Red Blood Count 4.15 M/mm3 (4.6-6.2); White Blood Count 4.1 K/mm3 (4.4-11.0)
[2024-11-16 10:43] LABS: AST(SGOT) 25 U/L (15-37); Alanine Aminotransfer ALT/SGPT 31 U/L (16-61); Albumin, Serum 3.6 g/dL (3.2-5.0); Alkaline Phosphatase 65 U/L (45-117); Anion Gap 6 (5-15); BUN 16 mg/dL (7-18); BUN/Creat Ratio 14.7 RATIO (10-20); Calcium,Total 8.7 mg/dL (8.5-10.1); Chloride 106 mmol/L (98-107); Cholesterol 131 mg/dL (200); Creatinine, Serum 1.09 mg/dL (0.70-1.30); EST Glomerular Filtration Rate 71 mL/min (>60); Est Glom Filt Rate - Afr Amer 85 mL/min (>60); Ferritin 136 ng/mL (26-388); Globulin 3.5 g/dL (2.2-4.2); Glucose 89 mg/dL (74-106); High Density Lipoprotein 50 mg/dL; Iron 99 ug/dL (65-175); Iron Binding Capacity,Total 320 ug/dL (250-450); Magnesium 2.3 mg/dL (1.6-2.6); Potassium 4.1 mmol/L (3.5-5.1); Protein, Total 7.1 g/dL (6.4-8.2); Sodium Level 140 mmol/L (136-145); Triglycerides 130 mg/dL; Very Low Density Lipoprotein 26 mg/dL (5-40)
[2024-11-16 10:49] LABS: Hemoglobin A1c 5.2 % (3.8-5.6)
[2024-11-17 13:28] LABS: T4 Free Direct 0.86 ng/dL (0.76-1.46)
== END | disposition home or self-care (01) ==
LOC: MTLAB 07:02
PROVIDERS: PCP Family Medicine; Referring Provider Family Medicine; Visit Provider Family Medicine
DX: I10 Essential (primary) hypertension (principal); D50.9 Iron deficiency anemia, unspecified; R73.02 Impaired glucose tolerance (oral)
CPT/HCPCS: 36415; 80053; 80061; 82728; 83036; 83540; 83550; 83735; 84439; 84443; 85025

== ENCOUNTER → 2024-12-19 | Outpatient (CLI) | payer MEDICARE, SELFPAY ==
[2024-12-19 07:05] LABS: Absolute Lymphocyte Count 0.94 X10^3/uL (0.83-4.51); Absolute Neutrophil Count 2.5 X10^3/uL (2.0-7.7); Basophil# 0.05 X10^3/uL; Basophil% 1.3 % (0-1); Eosinophil# 0.14 X10^3/uL; Eosinophils% 3.5 % (0-5); Hematocrit 37.3 % (40-54); Hemoglobin 12.8 g/dL (13.0-16.5); Lymphocyte # 0.94 X10^3/ul (0.83-4.51); Lymphocyte % 23.6 % (19-41); Mean Corp Hgb Conc 34.3 g/dL (32-36); Mean Corpuscular Hgb 31.4 pg (27.0-32.0); Mean Corpuscular Volume 91.6 fL (80-94); Mean Platelet Vol. 9.8 fl (6.2-12.0); Monocyte# 0.39 X10^3/uL; Monocyte% 9.8 % (0-10); NRBC Flagged by Analyzer 0 % (0-5); Neutrophil # 2.45 X10^3/uL (2.7-7.7); Neutrophil % 61.3 % (47-70); Platelet Count 187 K/mm3 (150-450); RBC Distribution Width SD 43.7 fl (35.1-43.9); Red Blood Count 4.07 M/mm3 (4.6-6.2)
[2024-12-19 07:48] LABS: Ferritin 102 ng/mL (26-388); Iron 81 ug/dL (65-175); Iron Binding Capacity,Total 302 ug/dL (250-450)
[2024-12-19 07:53] LABS: PSA,Total- Diagnostic 1.79 ng/mL (0.0-4.0)
== END | disposition home or self-care (01) ==
LOC: LAB 06:37
PROVIDERS: PCP Family Medicine; Referring Provider Urology; Visit Provider Urology
DX: R97.20 Elevated prostate specific antigen [PSA] (principal); D50.9 Iron deficiency anemia, unspecified
CPT/HCPCS: 36415; 82728; 83540; 83550; 84153; 85025

== ENCOUNTER → 2025-01-02 | Outpatient (CLI) | payer MEDICARE, SELFPAY ==
--- NOTE | 2025-01-02 11:52 | LES_PTH ---
PATIENT: ERICA HORTON Jr. LOC: [place] U#:[id number] AGE/SX: 74/M ROOM: RE01/02/[address]: Dr. David Sherman MD : 1950 BED: DIS: 01/02/2025 SPEC #: [id number] RECD: 01/02/25 15:50 STATUS: DALE REEmmanuel #: [id number] KD: 01/02/25 11:[address]: David Sherman DEPT: SURGICAL PATHOLOGY RECD BY: Yahaira Anton ENTERED: 01/03/25 07:49 SP TYPE: Lesion OTHR DR: Dr. Saleem Hearn MD Tissues: Skin of eyelid, NOS Procedures: Surgery Specimen Level IV HEADER OPERATION: Excision lesion right upper eyelid PRE-OP DIAGNOSIS: Lesion right upper eyelid TISSUE SUBMITTED: Right upper eyelid lesion MICROSCOPIC DIAGNOSIS Right upper eyelid lesion, excision: Squamous papilloma. 01/04/2025 MICROSCOPIC DESCRIPTION Slides are reviewed. GROSS DESCRIPTION Received in fixative is one container labeled with the patient's name and designated Right upper eyelid lesion. The specimen consists of a polypoid piece of sr-white skin measuring 0.5 x 0.5 x 0.5cm. The specimen is inked, bisected and submitted entirely in one cassette. 01/03/2025 TC:1 CPT:50660
== END | disposition home or self-care (01) ==
LOC: LABSPEC 15:40
PROVIDERS: PCP Family Medicine; Referring Provider Ophthalmology; Visit Provider Ophthalmology
DX: D23.111 Other benign neoplasm of skin of right upper eyelid, including canthus (principal)
CPT/HCPCS: 88305

== ENCOUNTER 2025-03-14 07:05 | Outpatient (CLI) | payer MEDICARE, SELFPAY ==
[2025-03-14 10:38] LABS: Absolute Lymphocyte Count 0.94 X10^3/uL (0.83-4.51); Absolute Neutrophil Count 2.2 X10^3/uL (2.0-7.7); Basophil# 0.05 X10^3/uL; Basophil% 1.3 % (0-1); Eosinophil# 0.17 X10^3/uL; Eosinophils% 4.5 % (0-5); Hematocrit 37.6 % (40-54); Hemoglobin 12.4 g/dL (13.0-16.5); Lymphocyte # 0.94 X10^3/ul (0.83-4.51); Lymphocyte % 24.6 % (19-41); Mean Corpuscular Hgb 30.8 pg (27.0-32.0); Mean Corpuscular Volume 93.5 fL (80-94); Mean Platelet Vol. 10.3 fl (6.2-12.0); Monocyte# 0.48 X10^3/uL; Monocyte% 12.6 % (0-10); NRBC Flagged by Analyzer 0 % (0-5); Neutrophil # 2.17 X10^3/uL (2.7-7.7); Neutrophil % 56.7 % (47-70); Platelet Count 190 K/mm3 (150-450); RBC Distribution Width CV 12.6 % (11.6-14.6); RBC Distribution Width SD 43.2 fl (35.1-43.9); Red Blood Count 4.02 M/mm3 (4.6-6.2); White Blood Count 3.8 K/mm3 (4.4-11.0)
[2025-03-14 11:40] LABS: Hemoglobin A1c 5.3 % (<=5.6)
[2025-03-14 12:02] LABS: Cholesterol 127 mg/dL (<=200); Ferritin 99 ng/mL (37-417); High Density Lipoprotein 39 mg/dL; Low Density Lipoprotein Calc. 63 mg/dL; Triglycerides 123 mg/dL; Very Low Density Lipoprotein 25 mg/dL (5-40); cholesterol:hdl ratio screen 3.26
[2025-03-14 12:23] LABS: ALB/GLOB Ratio 1.4 RATIO (0.9-2.4); AST(SGOT) 27 U/L (<=37); Alanine Aminotransfer ALT/SGPT 25 U/L (<=46); Albumin, Serum 3.9 g/dL (3.4-4.8); Alkaline Phosphatase 71 U/L (40-129); Anion Gap 12 (5-15); BUN 22 mg/dL (4-19); BUN/Creat Ratio 21.3 RATIO (10-20); Calcium,Total 8.8 mg/dL (7.6-11.0); Carbon Dioxide 22.9 mmol/L (21.0-32.0); Chloride 106 mmol/L (98-108); Creatinine, Serum 1.02 mg/dL (0.70-1.20); EST Glomerular Filtration Rate 78 (>60); Globulin 2.8 g/dL (2.2-4.2); Glucose 99 mg/dL (70-99); Protein, Total 6.7 g/dL (5.9-8.4); Sodium Level 140 mmol/L (133-145); Total Bilirubin 0.24 mg/dL (0.00-1.30)
[2025-03-14 12:35] LABS: Iron 60 ug/dL (65-175); Iron Binding Capacity,Total 299 ug/dL (250-450); Iron Binding Capacity,Unsat 239 ug/dL (228-428)
== END 2025-03-14 23:59 | disposition home or self-care (01) ==
LOC: MTLAB 07:05
PROVIDERS: PCP Family Medicine; Referring Provider Family Medicine; Visit Provider Family Medicine
DX: R79.89 Other specified abnormal findings of blood chemistry (principal); R73.02 Impaired glucose tolerance (oral); I25.10 Atherosclerotic heart disease of native coronary artery without angina pectoris; D50.9 Iron deficiency anemia, unspecified
CPT/HCPCS: 36415; 80053; 80061; 82728; 83036; 83540; 83550; 84439; 84443; 85025

== ENCOUNTER → 2025-08-31 | Outpatient (CLI) | payer MEDICARE, SELFPAY ==
[2025-08-31 12:30] LABS: Hematocrit 38.2 % (40-54); Hemoglobin 13.1 g/dL (13.0-16.5); Immature Granulocytes Count 0.000 X10^3/uL (0.0-0.0); Mean Corp Hgb Conc 34.3 g/dL (32-36); Mean Corpuscular Volume 90.5 fL (80-94); Mean Platelet Vol. 10.5 fl (6.2-12.0); NRBC Flagged by Analyzer 0 % (0-5); Platelet Count 194 K/mm3 (150-450); RBC Distribution Width CV 12.9 % (11.6-14.6); RBC Distribution Width SD 42.5 fl (35.1-43.9); Red Blood Count 4.22 M/mm3 (4.6-6.2); White Blood Count 4.5 K/mm3 (4.4-11.0)
[2025-08-31 13:10] LABS: AST(SGOT) 36 U/L (<=37); Alanine Aminotransfer ALT/SGPT 34 U/L (<=46); Albumin, Serum 4.4 g/dL (3.4-4.8); Alkaline Phosphatase 76 U/L (40-129); Anion Gap 12 (5-15); BUN 15 mg/dL (4-19); BUN/Creat Ratio 15.1 RATIO (10-20); Calcium,Total 9.6 mg/dL (7.6-11.0); Carbon Dioxide 22.8 mmol/L (21.0-32.0); Chloride 100 mmol/L (98-108); Cholesterol 125 mg/dL (<=200); Globulin 3.1 g/dL (2.2-4.2); Glucose 99 mg/dL (70-99); Low Density Lipoprotein Calc. 56 mg/dL; Potassium 4.1 mmol/L (3.3-5.1); Triglycerides 164 mg/dL; Very Low Density Lipoprotein 33 mg/dL (5-40); cholesterol:hdl ratio screen 3.05
[2025-08-31 13:51] LABS: Iron 95 ug/dL (65-175); Iron Binding Capacity,Total 350 ug/dL (250-450); Iron Binding Capacity,Unsat 255 ug/dL (228-428); Magnesium 2.3 mg/dL (1.5-2.2)
== END | disposition home or self-care (01) ==
LOC: MFPLAB 09:51
PROVIDERS: PCP Family Medicine; Visit Provider Family Medicine
DX: R94.6 Abnormal results of thyroid function studies (principal); D50.9 Iron deficiency anemia, unspecified; E78.5 Hyperlipidemia, unspecified; R73.02 Impaired glucose tolerance (oral); I10 Essential (primary) hypertension
CPT/HCPCS: 36415; 80053; 80061; 83036; 83540; 83550; 83735; 84439; 84443; 85025

== ENCOUNTER → 2025-09-04 | Outpatient (CLI) | payer MEDICARE, SELFPAY ==
--- NOTE | 2025-09-04 12:48 | ECHOCS_ITS ---
Reason For Study Reason For Study: Shortness of Breath Procedure This was a 2D Doppler, Color Flow transthoracic echocardiogram. The study was technically difficult. Contrast injection was performed. Exam performed in department. Left Ventricle Normal LV size. Left ventricular systolic function is normal. The left ventricular ejection fraction is 65 %. No regional wall motion abnormalities noted. Right Ventricle Normal RV size. Normal systolic function. Atria Normal left atrium. Normal right atrium. Mitral Valve Normal mitral valve. Tricuspid Valve Normal tricuspid valve. Aortic Valve Trisinus/trileaflet aortic valve. Mild focal aortic valve calcification. Pulmonic Valve Normal pulmonic valve. Great Vessels Normal aortic root. The pulmonary artery is normal size. Inferior vena cava collapse with respiration. Pericardium/Pleural No pericardial effusion. Medication 22 gauge I.V. with prn adaptor inserted into right arm. Diluted definity 1ml given slow IV push to enhance endocardial definition. MMode/2D Measurements & Calculations LVIDd: 4.6 cm IVSd: 1.1 cm LVOT diam: 2.0 cm LVIDs: 3.0 cm LVPWd: 1.1 cm RVDd: 4.2 cm FS: 34.1 % LVOT area: 3.0 cm2 Ao root diam: 3.3 cm LAV(MOD-bp): 49.1 ml LVAd ap4: 33.4 cm2 LAV(MOD-bp) Indexed: 21.4 ml/m2 LVLd ap4: 8.2 cm LAV(MOD-sp2): 42.0 ml EDV(MOD-sp4): 111.0 ml LAV(MOD-sp4): 56.5 ml EDV(sp4-el): 115.7 ml LVAs ap4: 21.1 cm2 LVLs ap4: 7.1 cm ESV(MOD-sp4): 50.4 ml ESV(sp4-el): 53.1 ml EF(MOD-sp4): 54.6 % EF(sp4-el): 54.1 % SV(MOD-sp4): 60.7 ml SV(sp4-el): 62.7 ml LA A4 area: 20.0 cm2 SI(MOD-sp4): 26.5 ml/m2 LA dimension(2D): 4.2 cm RA A4 area: 21.8 cm2 TAPSE: 2.5 cm Time Measurements MV dec time: 0.27 sec Doppler Measurements & Calculations MV E max gurpreet: 68.1 cm/sec Lat Peak E' Gurpreet: 4.6 cm/sec Med Peak E' Gurpreet: 6.3 cm/sec MV A max gurpreet: 105.9 cm/sec E/E' lat: 14.7 E/E' med: 10.7 MV E/A: 0.64 MV V2 max: 112.1 cm/sec MV P1/2t max gurpreet: 82.4 cm/sec Ao V2 max: 224.8 cm/sec MV max P.0 mmHg MV P1/2t: 96.5 msec Ao max P.3 mmHg MV V2 mean: 61.7 cm/sec MV dec slope: 250.3 cm/sec2 Ao V2 mean: 156.0 cm/sec MV mean P.7 mmHg MVA(P1/2t): 2.3 cm2 Ao mean P.3 mmHg MV V2 VTI: 29.8 cm Ao V2 VTI: 48.9 cm MVA(VTI): 2.3 cm2 AV (velocity ratio): 0.47 KIMBERLY(I,D): 1.4 cm2 KIMBERLY(V,D): 1.3 cm2 AI max gurpreet: 372.2 cm/sec LV V1 max: 97.9 cm/sec SV(LVOT): 69.4 ml AI max P.4 mmHg LV V1 max P.8 mmHg LV V1 mean P.2 mmHg AI dec slope: 220.4 cm/sec2 LV V1 mean: 70.0 cm/sec AI P1/2t: 494.7 msec LV V1 VTI: 23.2 cm TR max gurpreet: 261.2 cm/sec PI dec slope: 175.7 cm/sec2 TR max P.3 mmHg ECHO/Echo Complete W/ Contrast Interpretation Summary Normal LV size. Left ventricular systolic function is normal. The left ventricular ejection fraction is 65 %. Contrast injection was performed. Ordering Physician: Juan Melara Referring Physician: Juan Melara Performed By: Ti Milton RCS
== END | disposition home or self-care (01) ==
LOC: CVS 12:44
PROVIDERS: PCP Family Medicine; Referring Provider Student in an Organized Health Care Education/Training Program; Visit Provider Student in an Organized Health Care Education/Training Program
DX: R06.02 Shortness of breath (principal)
CPT/HCPCS: 93306; Q9957; A4216; C8929

== ENCOUNTER → 2025-10-17 | Outpatient (CLI) | payer MEDICARE, SELFPAY ==
--- NOTE | 2025-10-17 16:11 | RAD_ITS ---
PROCEDURE: SHOULDER MIN 2 VIEWS 10/17/2025 REASON FOR EXAM: FALL TECHNIQUE: Procedure Code: RADSH Modality: DX Procedure: SHOULDER MIN 2 VIEWS Laterality: Right COMPARISON: None FINDINGS: Bones: No demonstrated fracture or suspicious osseous lesion Joints: Age consistent narrowing of the glenohumeral and AC joints without dislocation or subluxation. Soft tissues: No suspicious soft tissue swelling or foreign body Other: No upper rib fracture or pneumothorax RAD/Shoulder min 2 Views IMPRESSION: Age consistent changes, no acute findings Reading Location: [place] [address]
== END | disposition home or self-care (01) ==
LOC: MTRAD 16:11
PROVIDERS: PCP Family Medicine; Referring Provider Family Medicine; Visit Provider Family Medicine
DX: M25.511 Pain in right shoulder (principal); W19.XXXA Unspecified fall, initial encounter
CPT/HCPCS: 73030